=== PATIENT | male | born 1960 | race Two or more races ===

== ENCOUNTER 2024-11-06 05:53 | Inpatient (IN) | payer MEDICAID, SELFPAY ==
[2024-11-06] VITALS (13 sets, daily range): BP systolic 129–172; BP diastolic 77–101; PULSE 66–93; RESP 13–20; TEMP 36.4–36.8; O2SAT 94–100; BMI 38.0
--- NOTE | 2024-11-06 05:59 | EDNOTE_ITS ---
ED SOB =RME/HPI General Chief Complaint: Shortness of Breath/Dyspnea Stated Complaint: SOB Time Seen by Provider: 11/06/24 05:59 Arrival date/time: 11/06/24 05:53 RME / HPI RME / HPI Narrative: This section includes all my notes and documentations, including HPI, PE, and ED course.? Frank Smith MD HPI: 64-year-old male here with a couple day history of shortness of breath. No fever or chills or body aches or malaise. No chest pain. No known history of asthma or COPD. No cough or congestion. Equivocal about orthopnea. No leg pain or swelling. PMH remarkable for DM and HTN. When he had COVID about 4 years ago, his kidneys failed and needed dialysis temporarily. His kidneys have been fine since. No other complaints. ROS: All negative except as documented in HPI. Physical Exam: General:? Alert and oriented.? No acute distress when remaining still.?? Eyes:? Conjunctivae and lids clear.? ENT:? No nasal congestion.? Neck:? Supple.? Heart:? RRR.? Lungs:? No respiratory distress.? Moderately decreased air movement.? No rhonchi, wheezing, rales.?? Abdomen:? Soft and nontender.?? Legs:? No clubbing, cyanosis, edema.? Skin:? Warm and dry.?? Neuro:? Alert and oriented X 3.?? I reviewed all diagnostic test results. My interpretation of the EKG is?sinus rhythm with no acute ST?T changes. My interpretation of the chest x-ray is increased vascular congestion. Blood tests remarkable for pH 7.25, Cr 3.8, BNP 464, negative troponin, and negative D-dimer. At this point, diagnoses include?acute respiratory failure with hypoxia and acute renal failure. Treatment here included?oxygen and Solu-Medrol 125 mg IV and DuoNeb as a trial. No significant improvement noted. I discussed the case with our divorce attorney and our hospitalist.? About the presentation and exam and diagnostics and treatments here.? And need of further care in the hospital.? Will accept the patient. Lasix 40 mg IV ordered recommended by our divorce attorney. Frank Smith MD Related Data Allergies Allergy/AdvReac Type Severity Reaction Status Date / Time No Known Allergies Allergy Verified 11/06/24 05:59 Past Medical History Past Medical History CARDIAC: Negative Congestive Heart Failure RESPIRATORY: Negative Chronic Obstructive Pulmonary Disease (COPD) GENITOURINARY: Negative Renal Disease ENDOCRINE: Negative Diabetes Mellitus Type 1 or Diabetes Mellitus Type 2 Social History SMOKING STATUS: Never smoker Course Quality Measures none Orders Category Date Time Status Bedside COVID-19 Antigen Test NOW Care 11/06/24 06:02 Active Bedside Influenza A&B Antigen Test NOW Care 11/06/24 06:02 Completed COVID-19 Screening Questionnaire NOW Care 11/06/24 08:15 Active Decision to Admit X1 Care 11/06/24 08:15 Active EKG (ED ONLY) *Do not use* NOW Care 11/06/24 06:02 Completed Saline [Insert IV] NOW Care 11/06/24 06:02 Active Consult to Nephrology Stat Cons 11/06/24 07:55 Ordered EKG (ED Only) Stat Exams 11/06/24 06:02 Draft US renal BI Stat Exams 11/06/24 07:56 Ordered XR chest 1V portable Stat Exams 11/06/24 06:02 Completed ABG [Arterial Blood Gas] Stat Lab 11/06/24 06:37 Completed BNP [B-Type Natriuretic Peptide] Stat Lab 11/06/24 06:33 Completed CBC Stat Lab 11/06/24 06:33 Completed CMP [Comprehensive Metabolic Panel] Stat Lab 11/06/24 06:33 Completed D-Dimer Stat Lab 11/06/24 06:33 Completed Magnesium Stat Lab 11/06/24 06:33 Completed RSV [Respiratory Syncytial Virus Ag] Stat Lab 11/06/24 06:17 Completed Troponin I Stat Lab 11/06/24 06:33 Completed Albuterol/Ipratr Rt Kaelyn [Duoneb Rt Kaelyn] Med 11/06/24 06:01 Discontinued 3 ml INH X1 ONE Furosemide Inj [Lasix Inj] Med 11/06/24 07:56 Discontinued 40 mg IVP X1 ONE MethylPREDNISolone.* [SoluMEDROL Inj] Med 11/06/24 06:01 Discontinued 125 mg IVP X1 ONE Vital Signs Vital signs: Vital Signs Pulse Rate 75 11/06/24 06:00 Respiratory Rate 15 11/06/24 06:00 Blood Pressure 168/92 H 11/06/24 06:00 Pulse Oximetry (%) 98 11/06/24 06:00 Shortness of Breath / Dyspnea Patient data External records reviewed:: None (No previous records for review) Clinical information provided by:: patient and EMS Social determinants that could affect healthcare access:: none Patient has the following chronic illnesses:: DM and HTN How is presenting disease/condition affected by chronic disease/condition?: exacerbated by Evaluation data The following diagnostics were reviewed and interpreted by me:: lab results, radiology exam(s) and EKG tracing(s) (My interpretation of the EKG: NSR (71 bpm) with no ST-T changes. Frank Smith MD) Lab and/or radiology exams considered but not ordered:: None Interpretation Summary: Acute respiratory failure with hypoxia and acute renal failure Medications / Prescriptions Medications or Prescriptions considered but not ordered:: None Medication administrations:: Medication Administration History Discontinued Medications Albuterol/Ipratropium (Albuterol/Ipratropium (Duoneb) Rt Kaelyn 3 Ml Nebu) 3 ml INH X1 ONE Stop: 11/06/24 06:02 Last Admin: 11/06/24 06:21 Dose: 3 ml Documented By: FRANK Furosemide (Furosemide Inj 10 Mg/Ml 4ml Vial) 40 mg IVP X1 ONE Stop: 11/06/24 07:57 Methylprednisolone Sodium Succinate (Methylprednisolone Sod Succ 62.5 Mg/Ml 2ml Vial) 125 mg IVP X1 ONE Stop: 11/06/24 06:02 Last Admin: 11/06/24 06:41 Dose: 125 mg Documented By: KD Oxygen and Solu-Medrol and DuoNeb and Lasix Consultations Consultation(s) initiated? (list below): Yes Consultation #1 (Physician, Specialty, Details): Dr. Hutchinson (Nephrology) Diagnosis Shortness of Breath Differential Diagnosis: acute exacerbation of chronic obstructive airways disease, congestive heart failure, community acquired pneumonia, asthma with exacerbation, pulmonary embolism and other (Acute renal failure) Most likely diagnosis given after review of the tests above:: Acute renal failure Admission Indicated Admission indicated?: indicated Explain why admission is indicated or not indicated:: Acute respiratory failure with hypoxia and acute renal failure Admission Request Was there a request for admission?: Yes Admission Attestation Admission request attestation: Discussed case with Hospitalist service regarding admission. Discussed patients ED course, exam findings, labs, and radiology results. The Hospitalist [agrees,declines] to accept the patient for admission. Disposition Plan Disposition Plan: Admit Discharge Plan Plan Patient Disposition: Admit Acute Care w/in Hospital Prescriptions/Referrals Referrals: No Primary/Family,Physician [Primary Care Provider] - In 1 week Problem List Clinical Impression: Acute respiratory failure with hypoxia, Acute renal failure Patient/Caregiver Discharge Instructions Print Language: Pashto Stand Alone Forms: Lois Award Info., Patient Portal Info Letter
--- NOTE | 2024-11-06 06:02 | EKG_ITS ---
[facility] Test Date: 2024-11-06 Pat Name: SANAM HARPER Department: Room: - Gender: Male Telephone Directory Deliverer: : 1960 Requested By: Frank Hung Order Number: [id number] Reading MD: Frank Hung Measurements Intervals Pelzer Rate: 71 P: 99 UT: 205 QRS: 29 QRSD: 101 T: 43 QT: 427 QTc: 466 Interpretive Statements SINUS RHYTHM No previous ECG available for comparison /store/S0/[id number]/[id number].pdf
--- NOTE | 2024-11-06 06:02 | XR_ITS ---
Examination: AP chest single view Technique one AP portable semiupright chest single view Exam date and time: November 06, 2024 at 0617 hrs. Indications: SOB today. Findings: Mild prominence cardiac contour Mild vascular congestion Interstitial disease at the lung bases Intact osseous structures Impression: Interstitial disease at the lung bases, consider bronchitis versus early bronchopneumonia, clinical correlation advised
[2024-11-06] MEDS: ALBUTEROL/IPRATROPIUM (Duoneb) RT SOL 3 ML NEBU INH (06:21)
[2024-11-06 06:41] LABS: Base Excess -7 (-3-3); HCO3 20 mEq/L (20-26); O2 Saturation 96 % (91-98); PCO2 47 mmHg (32.0-48.0); PO2 89 mmHg (83-108); pH, Arterial 7.25 (7.35-7.45)
[2024-11-06] MEDS: MethylPREDNISolone SOD SUCC 62.5 MG/ML 2ML VIAL 125 MG IVP (06:41)
[2024-11-06 06:54] LABS: Allen Test Performed/OK; Inspired O2, VO2 Liters 4 L/min; Puncture Site Right Radial
[2024-11-06 07:09] LABS: Basophils # (Auto) 0.1 Thou/mm3 (0.0-0.2); Basophils % (Auto) 1 % (0-2.5); Eosinophils # (Auto) 0.1 Thou/mm3 (0.0-0.5); Eosinophils % (Auto) 1 % (0-10); Hematocrit 30.2 % (41.0-53.0); Hemoglobin 9.6 g/dL (13.5-16.0); Immature Granulocytes % (Auto) 1 % (0-0); Immature Granulocytes Auto 0.08 Thou/mm3 (0.00-0.00); Lymphocytes # (Auto) 1.8 Thou/mm3 (1.0-4.8); Lymphocytes % (Auto) 18 % (10-50); Mean Corpuscular HGB Conc 31.8 g/dl (31.0-37.0); Mean Corpuscular Hemoglobin 29.1 pg (25.0-35.0); Mean Corpuscular Volume 92 fL (80-100); Monocytes # (Auto) 0.6 Thou/mm3 (0.0-0.8); Monocytes % (Auto) 6 % (0-12); Neutrophils # (Auto) 7.4 Thou/mm3 (1.8-7.7); Neutrophils % (Auto) 74 % (37-80); Nucleated Red Blood Cell % 0 /100 WBC (0); Platelet Count 174 Thou/mm3 (140-440); RDW Standard Deviation 53.8 fL (35.1-43.9)
--- NOTE | 2024-11-06 07:15 | PC.NURSE ---
Received report from Elva WEBER and assumed care of patient. Patient sleeping in bed with no signs of distress at this time.
[2024-11-06 07:38] LABS: Alanine Aminotransferase 17 U/L (10-49); Albumin, Serum 4.3 gm/dL (3.4-4.8); Albumin/Globulin Ratio 1.2 (1.2-2.2); Alkaline Phosphatase 77 U/L (46-116); Anion Gap 9 (7-16); Aspartate Amino Transferase 25 U/L (0-34); B-Type Natriuretic Peptide 464 pg/mL (0-100); BUN/Creatinine Ratio 20 Ratio (12-20); Bilirubin,Total 0.3 mg/dL (0.3-1.2); Blood Urea Nitrogen 76 mg/dL (9-23); Calcium 8.5 mg/dL (8.3-10.6); Calcium (Corrected) 8.5 mg/dL (8.5-10.1); Chloride 107 mMol/L (98-107); Creatinine (Component) 3.8 mg/dL (0.6-1.3); Estimated Creatinine Clearance 27.4 mL/min (>60); Globulin 3.6 gm/dL (2.3-3.5); Glucose 98 mg/dL (74-106); Magnesium 2.4 mg/dL (1.6-2.6); Osmolality,Calculated 296 (275-295); Potassium 4.8 mMol/L (3.4-5.1); Sodium 137 mMol/L (136-145); Total Protein 7.9 gm/dL (5.7-8.2); Troponin I 0.036 ng/mL (0.0-0.045); eGFR 17 See Note
[2024-11-06 07:38] LABS: Respiratory Syncytial Virus Ag Negative (Negative)
[2024-11-06 07:42] LABS: D-Dimer 379 ng/mL (<600)
--- NOTE | 2024-11-06 07:56 | XR_ITS ---
Examination: Retroperitoneal ultrasound, complete Technique: Multiple high resolution grayscale images of the retroperitoneum obtained, including kidneys and bladder. Exam date and time:November 06, 2024 0839 hours INDICATIONS: Acute renal insufficiency on laboratory examination today, creatinine 3.8 FINDINGS: Right kidney 9.1 x 5.4 x 5.5 cm cortex 1.4 cm Left kidney 10.1 x 4.9 x 5.5 cm cortex 2.1 cm Mild bilateral renal parenchymal scar formation No hydronephrosis No bladder mass or bladder calculi Bladder prevoid volume 357 cc unable to void IMPRESSION: Mild bilateral renal parenchymal scar formation No hydronephrosis
[2024-11-06] MEDS: FUROSEMIDE INJ 10 MG/ML 4ML VIAL 40 MG IVP (08:27)
--- NOTE | 2024-11-06 09:03 | PC.CC ---
Patient is a 64 year-old male BIBA for SOB. MARIANAWMarilu made [id number] contact with patient. ASW introduced self, role, and reason for visit. Patient appeared alert and oriented to self, location, and situation. Patient was pleasant and engaged in initial assessment. Patient confirmed information on demographics and reports to living with his significant other, Mimi Baldwinlayjoslyn . Per patient, prior to him being admitted he uses a wheelchair to ambulate and is complete assist. Patient's caregiver is his significant other who helps him complete all his ADLs. Patient has been using oxygen since presenting to the hospital; however, stated that at home he does not use any oxygen. Patient receives primary care with [facility] in [place]. Patient's next of kin is Mimi Baldwinjosie his significant other. Upon discharge patient plans to return home. multicultural services librarian to follow-up with any discharge needs.
--- NOTE | 2024-11-06 09:29 | ECHO_ITS ---
Transthoracic Echo Report Ht (in): 72 Wt (lb): 280 Exam Location: ER Status: Emergency Sample Grader: Josefina Gamez Indications: Procedure Performed: BP: 172 / 101 HR: 80 Rhythm: Sinus Technical Quality: Technically difficult study MEASUREMENTS (Male / Female) Normal Values 2D ECHO LV Diastolic Diameter PLAX 5.8 cm 4.2 - 5.9 / 3.9 - 5.3 cm LV Systolic Diameter PLAX 4.0 cm IVS Diastolic Thickness 1.1 cm 0.6 - 1.0 / 0.6 - 0.9 cm LVPW Diastolic Thickness 1.1 cm 0.6 - 1.0 / 0.6 - 0.9 cm LV Relative Wall Thickness 0.4 LVOT Diameter 2.2 cm LA Volume Index 35.0 cm?/m? 16 - 28 cm?/m? Ascending Aorta Diameter 3.4 cm M-MODE Aortic Root Diameter MM 2.8 cm LA Systolic Diameter MM 4.4 cm LA Ao Ratio MM 1.6 AV Cusp Separation MM 2.0 cm DOPPLER AV Peak Velocity 146.0 cm/s AV Peak Gradient 8.5 mmHg AV Mean Gradient 5.0 mmHg AV Velocity Time Integral 30.1 cm LVOT Peak Velocity 115.0 cm/s LVOT Peak Gradient 5.3 mmHg LVOT Velocity Time Integral 28.9 cm LVOT Cardiac Index 3394.6 cm?/min?m? AV Area Cont Eq vti 3.6 cm? AV Area Cont Eq pk 3.0 cm? MV Peak Velocity 122.0 cm/s MV Peak Gradient 6.0 mmHg MV Mean Velocity 87.9 cm/s MV Mean Gradient 4.0 mmHg MV Area PHT 4.1 cm? Mitral E Point Velocity 104.0 cm/s Mitral A Point Velocity 115.0 cm/s Mitral E to A Ratio 0.9 LV E' Lateral Velocity 14.5 cm/s Mitral E to LV E' Lateral Ratio 7.2 LV E' Septal Velocity 8.2 cm/s Mitral E to LV E' Septal Ratio 12.7 FINDINGS Left Ventricle Normal left ventricular size,systolic function with no obvious regional wall motion abnormalities. M ild LVH. The ejection fraction is visually estimated at 55-60%. Right Ventricle The right ventricle is mildly dilated. Normal systolic function. Left Atrium The left atrium is normal by two-dimensional, color flow and Doppler imaging with no structural abnormalities, no thrombus formation present. Right Atrium The right atrium is normal by two-dimensional imaging, color flow and Doppler imaging with no struct ural abnormalities, no thrombus formation present. Atrial Septum The interatrial septum appears normal with no evidence of a shunt. Aorta The aorta is normal by two-dimensional, color flow and Doppler interrogation. Mitral Valve The mitral valve is normal by two-dimensional, color flow and Doppler interrogation. There is trace mitral valve regurgitation. Aortic Valve The aortic valve is trileaflet. Mild sclerosis without stenosis. There is no significant aortic valv e regurgitation. Tricuspid Valve The tricuspid valve is normal by two-dimensional, color flow and Doppler interrogation. There is tra ce tricuspid valve regurgitation. Pulmonic Valve The pulmonic valve is normal by two-dimensional, color flow and Doppler interrogation. There is no significant pulmonic valve regurgitation. Vessels The pulmonary artery appears normal. The inferior vena cava pulmonary and hepatic veins appear osman l. Pericardium The pericardium is normal by two-dimensional imaging. Possible epicardial fat pad near the RA or sm all pericardial effusion. CONCLUSIONS Indication: CHF Normal LV size and function. Mild LVH. Stage I diastolic dysfunction. Estimated EF 55-60% Mild RV dilatation. Normal RV function. Trace MR, TR. Mild AV sclerosis without stenosis. Possible epicardial fat pad near the RA or trace pericardial effusion. Rafa Hemphill (Electronically Signed) Final Date: 07 November 2024 08:24
[2024-11-06] MEDS: AZITHROMYCIN 250 MG TABLET 500 MG PO (10:49)
[2024-11-06] MEDS: cefTRIAXone/D5w 1gm IV premix 50 ML IV (10:50)
[2024-11-06] MEDS: HEPARIN SOD INJ 5000 UNIT/ML VIAL SC ×2 (15:52→21:03)
--- NOTE | 2024-11-06 16:35 | ESHP_ITS ---
Documentation for date of: 11/06/24 HPI - Hospitalist History of Present Illness History of present illness: Patient is a 64-year-old male with history of hypertension, on methadone following at the [facility] (formerly [facility]3] in [place], hyperlipidemia, insulin-dependent diabetes mellitus, and dyspepsia, who presented with a chief complaint of shortness of breath. Patient was at his usual state of health until the night prior to admission. He had some difficulty going to sleep because of his difficulty breathing. He reported dry cough. He reported feeling short of breath when he lies flat. No chest pain. No nausea or vomiting. As his symptoms got worse, he presented to the ED. In the ED, he was hypoxic requiring oxygen via nasal cannula. His BP was 161/96. His labs showed elevated creatinine at 3.8. Baseline is unclear. BNP was elevated. He mentioned that he had acute kidney injury in the past and he was temporarily on hemodialysis. His pH was 7.25 but the bicarb was WNL. Chest x-ray showed bronchitis versus bronchopneumonia. Nephrology was consulted in the ED and recommended IV Lasix. He was admitted for further evaluation and management. Past medical history: As above Medications were reviewed at the bedside No known drug allergies Family history: Positive for hypertension and diabetes. Reported no kidney disease in his family. Social history: He is currently not smoking cigarettes or drinking alcohol. Denied any recent illicit drug use. 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 Review of Systems Review of Systems Narrative Review of Systems: 12 point of system reviewed. All negative except as mentioned in the HPI. Meds Home Medications and Allergies Allergies Allergy/AdvReac Type Severity Reaction Status Date / Time No Known Allergies Allergy Verified 11/06/24 05:59 Exam Vital Signs Temp Pulse Resp BP Pulse Ox O2 Del Method O2 Flow Rate 98.1 F 79 15 129/84 98 Nasal Cannula 3.5 11/06/24 16:18 11/06/24 16:18 11/06/24 16:18 11/06/24 16:18 11/06/24 16:18 11/06/24 16:18 11/06/24 16:18 Narrative General: Alert and oriented x3. In no acute distress. Eyes: Pupils are equal and reactive to light bilaterally. HEENT: Atraumatic, normocephalic. No JVD noted. Cardiovascular: Normal S1 and S2. Normal rate and regular rhythm. No murmurs appreciated. +1 peripheral pitting edema noted. No JVD noted. Respiratory: No respiratory distress. Crackles heard on lung examination. No wheezing. Abdomen: Soft, nontender, nondistended. Skin: No rash. Warm to touch. Musculoskeletal: Toe amputation noted. Able to move all 4 extremities. Neuro: Alert and oriented x3. Sensation is intact throughout. Strength is 5/5 and symmetric. No focal neuro deficits. Psych: Normal affect and mood. Results - Hospitalist Labs Diagrams: 11/06/24 06:33 11/06/24 06:33 Labs: Short CBC 11/06/24 Range/Units 06:33 WBC 10.0 (3.8-10.6) Thou/mm3 Hgb 9.6 L (13.5-16.0) g/dL Hct 30.2 L (41.0-53.0) % Plt Count 174 (140-440) Thou/mm3 BMP 11/06/24 06:33 Sodium 137 Potassium 4.8 Chloride 107 Carbon Dioxide 21.0 BUN 76 H Creatinine 3.8 H Glucose 98 Calcium 8.5 Cardiac Enzymes 11/06/24 Range/Units 06:33 Troponin I 0.036 (0.0-0.045) ng/mL Liver Function 11/06/24 Range/Units 06:33 Total Bilirubin 0.3 (0.3-1.2) mg/dL AST 25 (0-34) U/L ALT 17 (10-49) U/L Alkaline Phosphatase 77 (46-116) U/L Albumin 4.3 (3.4-4.8) gm/dL ABG Interpretation ABG results: 11/06/24 06:37 ABG pH 7.25 L ABG pCO2 47 ABG pO2 89 ABG HCO3 20 ABG O2 Saturation 96 ABG Base Excess -7 L Assessment & Plan -Hospitalist Patient Synopsis 64-year-old male with hypertension, IDDM, hyperlipidemia, who presented with shortness of breath, orthopnea, and PND. He was found to have acute hypoxic respiratory failure in the setting of possible CHF versus bronchopneumonia and MIAN. Acute hypoxic respiratory failure In the setting of volume overload from new onset CHF versus bronchopneumonia. Requiring oxygen via nasal cannula. Management of the underlying conditions as below. Wean off oxygen as tolerated. Possible new onset CHF He has elevated BNP, vascular congestion, and +1 pitting edema on physical exam. He received IV Lasix in the ED per nephrology recommendations. Plan: Continue IV Lasix Monitor kidney function Ordered echocardiogram Monitor I's and O's Cardiac diet with fluid restriction of 1500 cc/day Possible associated pneumonia, bilateral Started the patient on IV ceftriaxone/azithromycin. Avoiding IV fluids in the setting of possible CHF. MIAN No baseline creatinine to compare however patient likely has baseline CKD. Possibly cardiorenal in the setting of volume overload. Plan: Continue IV diuresis with Lasix 40 mg IV daily Monitor I's and O's Avoid nephrotoxins Renally dosed medications Monitor [facility] Nephrology Dr. Valdez consulted. Appreciate recommendations Insulin-dependent diabetes mellitus He reported using long-acting insulin Basaglar 20 units every 12 hours. Plan: Will start long-acting insulin 20 units twice daily plus sliding scale insulin. Monitor fingersticks Opiate dependence on chronic methadone He reported being on 90 mg of methadone. He goes to [facility] in [place]. Verify dose prior to resuming. Hypertension He is currently normotensive. Resume home medications once reconciled. CODE STATUS is full code DVT prophylaxis with subcutaneous heparin Admitting to telemetry for IV diuresis Diet is cardiac with fluid restriction of 1500 cc/day Quality Measures Quality Measures none
--- NOTE | 2024-11-06 18:55 | PC.NURSE ---
Report called and given to Shira WEBER at [facility] to RM [id number].
[2024-11-06] MEDS: INSULIN LISPRO (AdmeLOG) 1 UNIT/0.01 ML UNIT SC (19:00)
[2024-11-06] MEDS: INSULIN GLARGINE (Lantus) 5 UNIT/0.05 ML (PER 5 UNITS) 20 UNIT SC (20:52)
[2024-11-07] VITALS (10 sets, daily range): BP systolic 123–169; BP diastolic 74–93; PULSE 68–93; RESP 16–19; TEMP 36.4–37; O2SAT 95–99; BMI 37.0
[2024-11-07] MEDS: HEPARIN SOD INJ 5000 UNIT/ML VIAL SC ×3 (05:35→21:47)
[2024-11-07 06:44] LABS: Basophils % (Auto) 0 % (0-2.5); Eosinophils % (Auto) 0 % (0-10); Hematocrit 29.3 % (41.0-53.0); Hemoglobin 9.2 g/dL (13.5-16.0); Immature Granulocytes % (Auto) 1 % (0-0); Immature Granulocytes Auto 0.06 Thou/mm3 (0.00-0.00); Lymphocytes # (Auto) 2.4 Thou/mm3 (1.0-4.8); Lymphocytes % (Auto) 28 % (10-50); Mean Corpuscular HGB Conc 31.4 g/dl (31.0-37.0); Mean Corpuscular Hemoglobin 29.1 pg (25.0-35.0); Mean Corpuscular Volume 93 fL (80-100); Monocytes # (Auto) 0.5 Thou/mm3 (0.0-0.8); Monocytes % (Auto) 6 % (0-12); Neutrophils # (Auto) 5.7 Thou/mm3 (1.8-7.7); Neutrophils % (Auto) 65 % (37-80); Nucleated Red Blood Cell % 0 /100 WBC (0); Platelet Count 172 Thou/mm3 (140-440); RDW Standard Deviation 53.1 fL (35.1-43.9); Red Blood Count 3.16 Miln/mm3 (4.50-5.90); White Blood Count 8.8 Thou/mm3 (3.8-10.6)
[2024-11-07 07:06] LABS: Anion Gap 12 (7-16); BUN/Creatinine Ratio 22 Ratio (12-20); Blood Urea Nitrogen 82 mg/dL (9-23); Calcium 8.9 mg/dL (8.3-10.6); Carbon Dioxide 20.5 mMol/L (20.0-31.0); Chloride 106 mMol/L (98-107); Creatinine (Component) 3.7 mg/dL (0.6-1.3); Estimated Creatinine Clearance 27.8 mL/min (>60); Glucose 67 mg/dL (74-106); Magnesium 2.5 mg/dL (1.6-2.6); Osmolality,Calculated 298 (275-295); Potassium 4.6 mMol/L (3.4-5.1); Sodium 138 mMol/L (136-145); eGFR 18 See Note
[2024-11-07] MEDS: INSULIN GLARGINE (Lantus) 5 UNIT/0.05 ML (PER 5 UNITS) 20 UNIT SC (08:22)
[2024-11-07] MEDS: FUROSEMIDE INJ 10 MG/ML 4ML VIAL 40 MG IVP (08:23)
[2024-11-07] MEDS: cefTRIAXone/D5w 1gm IV premix 50 ML IV (08:24)
[2024-11-07] MEDS: AZITHROMYCIN 250 MG TABLET PO (08:24)
[2024-11-07] MEDS: METHADONE HYDROCHLORIDE PO (10:14)
[2024-11-07] MEDS: amLODIPine BESYLATE 5 MG TABLET 10 MG PO (10:21)
--- NOTE | 2024-11-07 11:30 | PD.ADDPROG ---
Addendum Progress Note Addendum Date of report being addended: 11/07/24 Narrative: Attending's attestation: I reviewed labs, imaging, EKG, home medications and prior available records. Face to face evaluation was performed by me. I have personally examined the patient and discussed assessment and plan with the IM team. I reviewed the resident note and agree with the plan with exceptions as below. Acute hypoxic respiratory failure New onset CHF CHF exacerbation Heart failure with preserved EF MIAN Uncontrolled hypertension He is on room air Continue IV diuresis Echocardiogram showed EF of 55 to 60% with mild valvular disease. Cardiology was consulted for new onset CHF. Monitor kidney function and avoid nephrotoxins. Renally dosed medications. Consulted nephrology. Started hydralazine and amlodipine. Monitor BP.
--- NOTE | 2024-11-07 12:26 | PD.RESCONSUL ---
HPI Data of Consult Requesting Physician: Brandon Arredondo MD Admitting Provider: Brandon Arredondo MD Attending Provider: Brandon Arredondo MD Primary Care Provider: Physician No Primary/Family Consult Narrative Reason for consult: New onset HF History of present illness: 64-year-old wheelchair bound male with past medical history of essential hypertension, active heroin use and on methadone, hyperlipidemia, IDDM, COVID-pneumonia in 2019 with residual lower body weakness and dyspepsia was admitted to the hospital on 11/06/2024 due to new onset heart failure. In the ED patient came in with complaints of shortness of breath. Initially patient was hypotensive and afebrile. Initial labs showed WBC 10, Hgb 9.6, ABG (pH 7.25, pCO2 47, PaO2 89), sodium 137, potassium 4.8, BUN 76, creatinine 3.8, magnesium 2.4, and BNP 464. Initial imaging included chest x-ray which shows some interstitial disease at the lung bases, EKG showed sinus rhythm. Echo on 11/06/2024 had the following findings: Normal LV size and function. Mild LVH. Stage I diastolic dysfunction. Estimated EF 55-60% Mild RV dilatation. Normal RV function. Trace MR, TR. Mild AV sclerosis without stenosis. Possible epicardial fat pad near the RA or trace pericardial effusion. During my assessment patient stated that on the night of he got up to go to the restroom, but he got very short of breath when standing up from his wheelchair to use the restroom. He stated that he could not catch his breath and then he he decided to come into the hospital. He states that he does not have any chest pain, palpitations, lower extremity swelling, syncopal episodes, or previous episodes of shortness of breath. Patient states that he has not had these symptoms in the past and that he has never been told that he has any type of heart issues. Patient is a past smoker of 1 pack/day for around 20 years and quit 10 years ago, he also admits to actively using heroin on and off as well as methadone, he also stated that he drinks alcohol socially. He denies any history of cardiac events in his family other than high blood pressure on his father. Concerning his kidney function patient states that he has some kidney disease, but follows up with his primary care physician. PMH:essential hypertension, active heroin use and on methadone, hyperlipidemia, IDDM, COVID-pneumonia in 2020 with residual lower body weakness and dyspepsia Surgical Hx: Left toe amputation Social Hx: Admits to heroin use and currently on methadone as well, admits alcohol socially, past smoker pack per day for 20+ years and quit 10 years ago FMH: Father has hypertension and half sibling had a heart attack cc:: cc: Brandon Arredondo MD Review of Systems Review of Systems Narrative Review of Systems: Constitutional: Denies sweats, Denies weight loss/gain, Denies fever, Denies chills. HEENT: Denies hearing loss, Denies ear pain, Denies postnasal drip, Denies double vision, Denies blurry vision. Respiratory: Admits shortness of breath, Denies cough, Denies wheezing. Cardiovascular: denies chest pain, denies shortness of breath, denies palpitations, Denies sudden loss of consciousness. GI: Denies blood in stool, Denies constipation, Denies abdominal pain, Denies difficulty swallowing, Denies nausea or vomit. : Denies urinary incontinence, Denies pain while urinating, Denies increased urinary frequency. MSK: Denies joint pain, Denies joint swelling, denies numbness. Skin: Denies rash, Denies itching, Denies easy bruising. Neuro: Denies headaches, Denies dizziness, Denies seizures. Past Medical History Past Medical History Comments PMH COMMENT: PMH:essential hypertension, active heroin use and on methadone, hyperlipidemia, IDDM, COVID-pneumonia in 2020 with residual lower body weakness and dyspepsia Surgical Hx: Left toe amputation Social Hx: Admits to heroin use and currently on methadone as well, admits alcohol socially, past smoker pack per day for 20+ years and quit 10 years ago FMH: Father has hypertension and half sibling had a heart attack Exam Vital Signs Temp Pulse Resp BP Pulse Ox O2 Del Method O2 Flow Rate 97.7 F 93 18 169/93 H 99 Room Air 3 11/07/24 08:00 11/07/24 10:21 11/07/24 08:00 11/07/24 10:21 11/07/24 08:00 11/07/24 08:00 11/07/24 04:00 Narrative Exam General: A/O x3, no acute distress, obese Eyes: PERRL, EOMI. Anicteric, vision grossly intact. Ears: No ear pain, no ear discharge, Hearing grossly intact. Nose: No nasal discharge. Mouth/Throat: Moist mucous membranes, no redness, no lesions. Neck: Neck supple, non-tender, no cervical lymphadenopathy. Lungs: Clear LINO to auscultation and percussion, No accessory muscle use. Cardio: Normal S1/S2, regular rhythm, no murmurs, no JVD Abdomen: Soft, but distended non-tender, no palpable masses, peristalsis present, no guarding or rebound. Extremities: Symmetrical, no significant deformities, no peripheral edema , non-tender, peripheral pulses presents. amputation left great toe Skin: No rashes, no lesions, warm to touch. Neuro: No focal neurological deficits. LE strength 3/5 Psych: Cooperative, appropriate mood and effect. Results Labs 11/07/24 05:00 11/07/24 05:00 Labs: Short CBC 11/07/24 Range/Units 05:00 WBC 8.8 (3.8-10.6) Thou/mm3 Hgb 9.2 L (13.5-16.0) g/dL Hct 29.3 L (41.0-53.0) % Plt Count 172 (140-440) Thou/mm3 BMP 11/07/24 05:00 Sodium 138 Potassium 4.6 Chloride 106 Carbon Dioxide 20.5 BUN 82 H Creatinine 3.7 H Glucose 67 L Calcium 8.9 ABG Interpretation ABG results: 11/06/24 06:37 ABG pH 7.25 L ABG pCO2 47 ABG pO2 89 ABG HCO3 20 ABG O2 Saturation 96 ABG Base Excess -7 L Quality Measures Quality Measures none Medications Home Medications and Allergies Home Medications ?Medication ?Instructions ?Recorded ?Confirmed ?Type amlodipine 10 mg tablet 10 mg QDAY 11/06/24 11/06/24 History atorvastatin 80 mg tablet 80 mg QDAY 11/06/24 11/06/24 History esomeprazole magnesium 40 mg 40 mg QDAY 11/06/24 11/06/24 History capsule,delayed release gemfibrozil 600 mg tablet 600 mg BID 11/06/24 11/06/24 History hydralazine 100 mg tablet 100 mg PO TID 11/06/24 11/06/24 History hydrochlorothiazide 25 mg tablet 25 mg QDAY 11/06/24 11/06/24 History insulin glargine 100 unit/mL (3 20 unit subcut BID 11/06/24 11/06/24 History mL) subcutaneous pen (Basaglar KwikPen U-100 Insulin) lisinopril 40 mg tablet 40 mg QDAY 11/06/24 11/06/24 History Allergies Allergy/AdvReac Type Severity Reaction Status Date / Time No Known Allergies Allergy Verified 11/06/24 05:59 Visit Medications Amlodipine Besylate (Amlodipine Besylate 5 Mg Tablet) 10 mg PO QDAY [facility] Stop: 12/07/24 08:59 Last Admin: 11/07/24 10:21 Dose: 10 mg Azithromycin (Azithromycin 250 Mg Tablet) 250 mg PO QDAY [facility] Stop: 11/11/24 08:59 Last Admin: 11/07/24 08:24 Dose: 250 mg Methadone Hydrochloride Oral Concentrate 10 Mg/Ml 0 ea PO QDAY [facility]; Protocol Stop: 12/07/24 10:59 Last Admin: 11/07/24 10:14 Dose: 90 bottle Dextrose (Dextrose 50%-Water Inj 50 Ml Syringe) 25 ml IV Q15MIN PRN PRN Reason: BG 50-70 responsive npo pt Stop: 12/06/24 16:37 Dextrose (Dextrose 50%-Water Inj 50 Ml Syringe) 50 ml IV Q15MIN PRN PRN Reason: BG <50 OR BG <70 & pt unresponsive Stop: 12/06/24 16:37 Furosemide (Furosemide Inj 10 Mg/Ml 4ml Vial) 40 mg IVP QDAY [facility] Stop: 12/07/24 08:59 Last Admin: 11/07/24 08:23 Dose: 40 mg Glucagon (Glucagon Inj 1 Mg Vial) 1 mg IM Q15MIN PRN PRN Reason: BG <70, and no IV access Heparin Sodium (Porcine) (Heparin Sod Inj 5000 Unit/Ml Vial) 5,000 unit SC Q8HR [facility] Stop: 11/20/24 13:59 Last Admin: 11/07/24 05:35 Dose: 5,000 unit Hydralazine HCl (Hydralazine Hcl 25 Mg Tablet) 100 mg PO TID [facility] Stop: 12/07/24 13:59 Ceftriaxone Sodium/Dextrose (Rocephin/D5w 1gm Iv Premix) 50 mls @ 100 mls/hr IV QDAY [facility] Stop: 11/13/24 09:29 Last Admin: 11/07/24 08:24 Dose: 100 mls/hr Insulin Glargine (Insulin Glargine (Lantus) 5 Unit/0.05 Ml (Per 5 Units)) 20 unit SC BID [facility] Stop: 12/06/24 20:59 Last Admin: 11/07/24 08:22 Dose: 20 unit Insulin Human Lispro (Insulin Lispro (Admelog) 1 Unit/0.01 Ml Unit) 0 unit SC ACHS [facility]; Protocol Stop: 12/06/24 16:59 Last Admin: 11/07/24 08:07 Dose: Not Given Ondansetron HCl (Ondansetron Inj 2 Mg/Ml Inj 2 Ml) 4 mg IV Q6H PRN; Protocol PRN Reason: NAUSEA OR VOMITING Stop: 12/06/24 09:27 Discontinued Medications Albuterol/Ipratropium (Albuterol/Ipratropium (Duoneb) Rt Kaelyn 3 Ml Nebu) 3 ml INH X1 ONE Stop: 11/06/24 06:02 Last Admin: 11/06/24 06:21 Dose: 3 ml Azithromycin (Azithromycin 250 Mg Tablet) 500 mg PO X1 ONE Stop: 11/06/24 09:29 Last Admin: 11/06/24 10:49 Dose: 500 mg Furosemide (Furosemide Inj 10 Mg/Ml 4ml Vial) 40 mg IVP X1 ONE Stop: 11/06/24 07:57 Last Admin: 11/06/24 08:27 Dose: 40 mg Methadone HCl (Methadone Hcl 10 Mg Tablet) 90 mg PO QDAY [facility] Stop: 11/12/24 08:59 Methylprednisolone Sodium Succinate (Methylprednisolone Sod Succ 62.5 Mg/Ml 2ml Vial) 125 mg IVP X1 ONE Stop: 11/06/24 06:02 Last Admin: 11/06/24 06:41 Dose: 125 mg Assessment & Plan Plan 64-year-old wheelchair bound male with past medical history of essential hypertension, active heroin use and on methadone, hyperlipidemia, IDDM, COVID-pneumonia in 2019 with residual lower body weakness and dyspepsia was admitted to the hospital on 11/06/2024 due to new onset heart failure. 1. Acute on chronic diastolic heart failure, (EF 55 to 60%) 2. Acute on chronic kidney disease stage IV 3. Hypertensive urgency ?Patient came in with shortness of breath and a BNP of 464 ?Patient blood pressure has been elevated since admission and is currently 169/93 ?EKG showed sinus rhythm ?Echo on 11/06/2024 had the following findings: Normal LV size and function. Mild LVH. Stage I diastolic dysfunction. Estimated EF 55-60% Mild RV dilatation. Normal RV function. Trace MR, TR. Mild AV sclerosis without stenosis. Possible epicardial fat pad near the RA or trace pericardial effusion Plan: ?Recommend to continue Lasix 40mg qday for now and discuss with nephrology for further recommendations. -Recommend Metoprolol XL 50mg qday and titrate as blood pressure allows -Patient does not seem volume overloaded and does not have any heart failure symptoms at this time. -Recommend to get A1c, TSH, and lipid panel for risk stratification ?Strict LILIAN's ? Daily weights ? Fluid restrictions ? Low-sodium diet ?Recommend to keep potassium and magnesium above 4 and 2 respectively to avoid any further arrhythmias 3. Acute on chronic kidney disease stage IV ?Patient came in with BUN of 76 and creatinine 3.8, he states that he has some kidney disease. ?Patient may have slightly has some underlying CKD given the history of diabetes -Recommend to get nephrology consult ? Continue current management as per primary care team 4. IDDM 5. Hyperlipidemia ?Continue current management per Medicare team 6. Active heroin user and on methadone 7. COVID on 2021 with residual lower body weakness ?Continue current management as per primary care team 8. Normocytic normochromic anemia ? Continue current management as per primary care team Continue rest of management as per primary team. Cardiology will sign off, please reach out with any questions. We are grateful to be able to participate in Mr. Lu's care. Thank you for the consult Plan of care discussed with attending [place], Dr. Joby Perez MD PGY-1 Attending Provider Attestation/Addendum I have personally seen and examined the patient separately on the above date of service and discussed the plan of care with the resident. I reviewed the resident Dr. Meyer consultation progress note and agree with the resident findings and plan in the note above and have also edited the documentation to reflect my findings and plan. Patient does not have a history of CKD stage IV and had a history of dialysis physicians done in 2021. Overall patient does not appear to be significantly volume overloaded at the present point of time. Patient does have some shortness of breath and some trace edema which could all be secondary to his chronic kidney disease. Patient does have diastolic dysfunction on the echocardiogram and recommend to continue oral Lasix as per nephrology recommendations and no need of any IV diuresis at the present point of time. Patient does have a primary doctor as well as kidney doctor that he follows up and recommend to follow-up with him regularly. Recommend aggressive control of the hypertension as well as the diabetes mellitus. Continue amlodipine 10 mg once daily and hydralazine 100 mg 3 times daily. If patient able to tolerate start beta-blockers for blood pressure control. Lasix dose as per the nephrology team Rafa Hemphill M.D. Interventional Cardiology
[2024-11-07] MEDS: hydrALAZINE HCL 25 MG TABLET 100 MG PO ×2 (13:40→21:48)
--- NOTE | 2024-11-07 14:15 | ESPR_ITS ---
Documentation for date of: 11/07/24 Subjective Subjective Interval history: Patient was seen and examined bedside. Lying comfortably on the bed. Reported that his shortness of breath subsided and feeling well. Cardiology was consulted, will appreciate the recommendations. Will continue diuresis for now. Planning to discharge tomorrow Exam Vital Signs Temp Pulse Resp BP Pulse Ox O2 Del Method O2 Flow Rate 98.6 F 86 19 128/74 96 Room Air 3 11/07/24 12:00 11/07/24 13:40 11/07/24 12:00 11/07/24 13:40 11/07/24 12:00 11/07/24 12:00 11/07/24 04:00 Narrative Exam General: Awake. lying comfortably in the bed HEENT: Normocephalic, atraumatic, mucous membranes moist. Heart: Regular rate and rhythm, no murmurs. Lungs: Clear to auscultation with no wheezing or crackles. Abdomen: Soft, nondistended, nontender, positive bowel sounds. ?No guarding or rebound tenderness. Neurologic: Alert and oriented x3, no gross neurological deficit, and patient able to move all 4 extremities. Extremities: mild 1+ pedal edema extending upto ankles. Skin: No rash or ecchymoses. Objective Labs 11/09/24 04:45 11/09/24 04:45 Labs: Laboratory Results - last 24 hr 11/07/24 05:00 WBC 8.8 RBC 3.16 L Hgb 9.2 L Hct 29.3 L MCV 93 MCH 29.1 MCHC 31.4 RDW Std Deviation 53.1 H Plt Count 172 Neut % (Auto) 65 Lymph % (Auto) 28 [place] % (Auto) 6 Eos % (Auto) 0 Baso % (Auto) 0 Neut # (Auto) 5.7 Lymph # (Auto) 2.4 [place] # (Auto) 0.5 Eos # (Auto) 0.0 Baso # (Auto) 0.0 Immature Gran # (Auto) 0.06 H Absolute Nucleated RBC 0.00 Immature Gran % 1 H Nucleated RBC % 0 Sodium 138 Potassium 4.6 Chloride 106 Carbon Dioxide 20.5 Anion Gap 12 BUN 82 H Creatinine 3.7 H Estim Creat Clear Calc 27.8 L eGFR 18 L BUN/Creatinine Ratio 22 H Glucose 67 L Calculated Osmolality 298 H Calcium 8.9 Magnesium 2.5 ABG Interpretation ABG results: 11/06/24 06:37 ABG pH 7.25 L ABG pCO2 47 ABG pO2 89 ABG HCO3 20 ABG O2 Saturation 96 ABG Base Excess -7 L Quality Measures Quality Measures none Assessment & Plan Assessment Current Active Medications: Generic Name Dose Route Start Last Admin Trade Name Volodymyrq PRN Reason Stop Dose Admin Amlodipine Besylate 10 mg 11/07/24 09:00 11/07/24 10:21 Amlodipine Besylate 5 Mg Tablet PO 12/07/24 08:59 10 mg QDAY RAMSEY Administration Azithromycin 250 mg 11/07/24 09:00 11/07/24 08:24 Azithromycin 250 Mg Tablet PO 11/11/24 08:59 250 mg QDAY RAMSEY Administration Methadone 0 ea 11/07/24 11:00 11/07/24 10:14 Hydrochloride Oral PO 12/07/24 10:59 90 bottle Concentrate 10 Mg/Ml QDAY RAMSEY Administration Protocol Dextrose 25 ml 11/06/24 16:38 Dextrose 50%-Water Inj 50 Ml Syringe IV 12/06/24 16:37 Q15MIN PRN BG 50-70 responsive npo pt Dextrose 50 ml 11/06/24 16:38 Dextrose 50%-Water Inj 50 Ml Syringe IV 12/06/24 16:37 Q15MIN PRN BG <50 OR BG <70 & pt unresponsive Furosemide 40 mg 11/07/24 09:00 11/07/24 08:23 Furosemide Inj 10 Mg/Ml 4ml Vial IVP 12/07/24 08:59 40 mg QDAY RAMSEY Administration Glucagon 1 mg 11/06/24 16:38 Glucagon Inj 1 Mg Vial IM Q15MIN PRN BG <70, and no IV access Heparin Sodium (Porcine) 5,000 unit 11/06/24 14:00 11/07/24 13:42 Heparin Sod Inj 5000 Unit/Ml Vial SC 11/20/24 13:59 5,000 unit Q8HR RAMSEY Administration Hydralazine HCl 100 mg 11/07/24 14:00 11/07/24 13:40 Hydralazine Hcl 25 Mg Tablet PO 12/07/24 13:59 100 mg TID RAMSEY Administration Ceftriaxone Sodium/Dextrose 50 mls @ 100 mls/hr 11/06/24 09:30 11/07/24 08:24 Rocephin/D5w 1gm Iv Premix IV 11/13/24 09:29 100 mls/hr QDAY RAMSEY Administration Insulin Glargine 20 unit 11/06/24 21:00 11/07/24 08:22 Insulin Glargine (Lantus) 5 Unit/0.05 Ml (Per 5 Units) SC 12/06/24 20:59 20 unit BID RAMSEY Administration Insulin Human Lispro 0 unit 11/06/24 17:00 11/07/24 12:53 Insulin Lispro (Admelog) 1 Unit/0.01 Ml Unit SC 12/06/24 16:59 Not Given ACHS RAMSEY Protocol Ondansetron HCl 4 mg 11/06/24 09:28 Ondansetron Inj 2 Mg/Ml Inj 2 Ml IV 12/06/24 09:27 Q6H PRN NAUSEA OR VOMITING Protocol Plan 64-year-old male with hypertension, IDDM, hyperlipidemia, who presented with shortness of breath, orthopnea, and PND. He was found to have acute hypoxic respiratory failure in the setting of possible CHF versus bronchopneumonia and MIAN. # Acute hypoxic respiratory failure, resolved # Secondary to acute pulmonary edema from HFpEF versus MIAN # uncontrolled hypertension -Admitted to the hospital with complaints of shortness of breath lasting for 6 to 8 hours. -Unable to comment on PND episodes and orthopnea. -No past history of heart failure, CAD. -Vitals at the time of admission is blood pressure 168/92 mmHg, pulse 75 bpm, respiratory rate 15/min -Patient initially required oxygen in the ED, SpO2 98% with 4 L oxygen through nasal cannula. -Later patient got a dose of Lasix 40 Mg IV in the ED. -Echo was done that showed EF 55 to 60% with grade 1 diastolic dysfunction -TSH is within normal limits, lipid panel showed mildly elevated triglycerides 169. Plan -Patient was weaned off oxygen after receiving the Lasix. -Started on Lasix 40 Mg IV daily -Started on ceftriaxone and azithromycin in view of suspected underlying possible pneumonia. -Cardiology was consulted and will appreciate recommendations. -Patient was started on fluid restriction 1500 mL/day and salt restriction, sodium<2 g/day. # History of hypertension -Patient was using amlodipine 10 Mg p.o. daily, hydralazine 100 Mg p.o. 3 times daily, hydrochlorothiazide 25 Mg daily, lisinopril 40 Mg p.o. daily Plan -Salt restriction -Resumed his amlodipine, hydralazine and started on Lasix. -Will monitor the blood pressures and adjust medications accordingly # History of insulin-dependent diabetes mellitus -Patient is on insulin glargine 20 units subcutaneous twice daily -HbA1c is 4.8 Plan -Resumed insulin glargine 20 units subcutaneous twice daily, as the patient is found to have low glucose levels changed insulin glargine to 14 units subcutaneous twice daily -Sliding scale is ordered. # Acute kidney injury versus CKD Likely secondary to combined diabetes and hypertension -Per patient, patient had history of kidney problem diagnosed at the time of COVID and had dialysis sessions at that time -Baseline creatinine is not known -Creatinine at the time of admission is 3.8 -renal ultrasound showed mild bilateral renal parenchymal scarring Plan -Urine electrolytes are ordered. -Nephrology was consulted and pending recommendations. -Will monitor renal functions. # History of hyperlipidemia -Patient is using atorvastatin 80 Mg p.o. daily, gemfibrozil 600 Mg p.o. twice daily -Lipid panel done during this admission showed mildly elevated triglyceride levels -Will resume his home medication on discharge. # History of opioid addiction, Deaddiction program -Patient is following [facility] in [place] and is on methadone -Will continue medications as needed. Hospital Maintenance: Dispo: Med/tele DVT ppx: Heparin GI ppx: Not needed Diet: Low-sodium, cardiac diet IV lines: Peripheral Code status: Full code Patient plan of care was discussed with the attending physician, Dr. Maria Elena Whitehead, PGY1 Attending Provider Attestation/Addendum I reviewed labs, imaging, EKG, home medications and prior available records. Face to face evaluation was performed by me. I have personally examined the patient and discussed assessment and plan with the IM team. I reviewed the resident note and agree with the plan with exceptions as below. See my addendum in a separate note for the same date.
[2024-11-07 16:37] LABS: Glucose Estimated Average 91 mg/dL (80-131); Hemoglobin A1C 4.8 % Hgb (4.8-6.0)
[2024-11-07 16:50] LABS: Cardiac Risk Estimate 4.9 RATIO (4.0-6.7); Cholesterol 182 mg/dL (132-200); HDL Cholesterol 37 mg/dL (40-60); LDL Cholesterol,Calculated 111 mg/dL (0-130); Thyroid Stimulating Hormone 1.66 uIU/mL (0.55-4.78); Triglycerides 169 mg/dL (30-150)
[2024-11-07 20:50] LABS: Chloride,Urine Random 71.6 mMol/L (55.0-125.0); Creatinine,Random Urine 48 mg/dL (30-125); Potassium,Urine Random 26 mMol/L (12-62); Sodium,Urine Random 68.7 mMol/L (20.0-110.0)
[2024-11-07] MEDS: INSULIN GLARGINE (Lantus) 5 UNIT/0.05 ML (PER 5 UNITS) 14 UNIT SC (21:47)
[2024-11-08] VITALS (13 sets, daily range): BP systolic 124–172; BP diastolic 80–101; PULSE 75–115; RESP 12–21; TEMP 36.4–36.8; O2SAT 95–98
[2024-11-08] MEDS: HEPARIN SOD INJ 5000 UNIT/ML VIAL SC ×3 (05:20→21:28)
[2024-11-08] MEDS: hydrALAZINE HCL 25 MG TABLET 100 MG PO ×3 (05:21→21:28)
[2024-11-08 06:18] LABS: Basophils # (Auto) 0.1 Thou/mm3 (0.0-0.2); Basophils % (Auto) 1 % (0-2.5); Eosinophils # (Auto) 0.1 Thou/mm3 (0.0-0.5); Eosinophils % (Auto) 1 % (0-10); Hematocrit 30.5 % (41.0-53.0); Hemoglobin 9.7 g/dL (13.5-16.0); Immature Granulocytes % (Auto) 1 % (0-0); Immature Granulocytes Auto 0.05 Thou/mm3 (0.00-0.00); Lymphocytes # (Auto) 4.9 Thou/mm3 (1.0-4.8); Lymphocytes % (Auto) 54 % (10-50); Mean Corpuscular HGB Conc 31.8 g/dl (31.0-37.0); Mean Corpuscular Hemoglobin 28.9 pg (25.0-35.0); Mean Corpuscular Volume 91 fL (80-100); Monocytes # (Auto) 0.6 Thou/mm3 (0.0-0.8); Monocytes % (Auto) 6 % (0-12); Neutrophils # (Auto) 3.4 Thou/mm3 (1.8-7.7); Neutrophils % (Auto) 38 % (37-80); Nucleated Red Blood Cell % 0 /100 WBC (0); Platelet Count 177 Thou/mm3 (140-440); RDW Standard Deviation 50.6 fL (35.1-43.9); Red Blood Count 3.36 Miln/mm3 (4.50-5.90); White Blood Count 9.2 Thou/mm3 (3.8-10.6)
[2024-11-08 06:36] LABS: Anion Gap 12 (7-16); BUN/Creatinine Ratio 24 Ratio (12-20); Blood Urea Nitrogen 90 mg/dL (9-23); Calcium 8.8 mg/dL (8.3-10.6); Carbon Dioxide 22.5 mMol/L (20.0-31.0); Chloride 106 mMol/L (98-107); Creatinine (Component) 3.8 mg/dL (0.6-1.3); Estimated Creatinine Clearance 26.9 mL/min (>60); Glucose 54 mg/dL (74-106); Magnesium 2.5 mg/dL (1.6-2.6); Osmolality,Calculated 305 (275-295); Potassium 4.3 mMol/L (3.4-5.1); Sodium 140 mMol/L (136-145); eGFR 17 See Note
[2024-11-08] MEDS: amLODIPine BESYLATE 5 MG TABLET 10 MG PO (08:07)
[2024-11-08] MEDS: AZITHROMYCIN 250 MG TABLET PO (08:08)
[2024-11-08] MEDS: METHADONE HYDROCHLORIDE PO (08:08)
[2024-11-08] MEDS: FUROSEMIDE INJ 10 MG/ML 4ML VIAL 40 MG IVP (08:11)
[2024-11-08] MEDS: cefTRIAXone/D5w 1gm IV premix 50 ML IV (08:14)
--- NOTE | 2024-11-08 08:47 | ESCONSULT_ITS ---
History of Present Illness Data of Consult Requesting Physician: Brandon Arredondo MD Primary Care Provider: Physician No Primary/Family Family Provider: 64-year-old male with history of hypertension, on methadone following at the [facility] in [place], hyperlipidemia, insulin-dependent diabetes mellitus, and dyspepsia, who presented with a chief complaint of shortness of breath. Nephrology called for MIAN vs CKD. Pt states that had kidney failure during COVID and was on dialysis for few sessions. Pt is seen today on Video call/Tele. Consult Narrative cc:: cc: Brandon Arredondo MD Review of Systems Review of Systems Systems Reviewed: All systems reviewed, normal except as documented Meds Home Medications and Allergies Home Medications ?Medication ?Instructions ?Recorded ?Confirmed ?Type amlodipine 10 mg tablet 10 mg QDAY 11/06/24 11/06/24 History atorvastatin 80 mg tablet 80 mg QDAY 11/06/24 11/06/24 History esomeprazole magnesium 40 mg 40 mg QDAY 11/06/24 11/06/24 History capsule,delayed release gemfibrozil 600 mg tablet 600 mg BID 11/06/24 11/06/24 History hydralazine 100 mg tablet 100 mg PO TID 11/06/24 11/06/24 History hydrochlorothiazide 25 mg tablet 25 mg QDAY 11/06/24 11/06/24 History insulin glargine 100 unit/mL (3 20 unit subcut BID 11/06/24 11/06/24 History mL) subcutaneous pen (Basaglar KwikPen U-100 Insulin) lisinopril 40 mg tablet 40 mg QDAY 11/06/24 11/06/24 History Allergies Allergy/AdvReac Type Severity Reaction Status Date / Time No Known Allergies Allergy Verified 11/06/24 05:59 Exam Vital Signs Temp Pulse Resp BP Pulse Ox O2 Del Method O2 Flow Rate 97.6 F 98 12 172/89 H 98 Room Air 3 11/08/24 04:00 11/08/24 08:11 11/08/24 04:00 11/08/24 08:11 11/08/24 04:00 11/08/24 04:00 11/07/24 04:00 Narrative Exam No acute distress breathing well feels better Results Labs 11/08/24 05:25 11/08/24 05:25 Labs: Short CBC 11/08/24 Range/Units 05:25 WBC 9.2 (3.8-10.6) Thou/mm3 Hgb 9.7 L (13.5-16.0) g/dL Hct 30.5 L (41.0-53.0) % Plt Count 177 (140-440) Thou/mm3 [facility] 11/08/24 05:25 Sodium 140 Potassium 4.3 Chloride 106 Carbon Dioxide 22.5 BUN 90 H Creatinine 3.8 H Glucose 54 L Calcium 8.8 ABG Interpretation ABG results: 11/06/24 06:37 ABG pH 7.25 L ABG pCO2 47 ABG pO2 89 ABG HCO3 20 ABG O2 Saturation 96 ABG Base Excess -7 L Assessment & Plan Assessment and plan (1) Stage 4 chronic kidney disease: Status: Acute Assessment and plan: Pt has advanced kidney disease Pt has proteinuria due to due to diabetic nephropathy advisedd low sodium diet renal US reviewed need close follow up as out pt office number to call to make appointment is [phone] f/u in 2 weeks as out pt
[2024-11-08 10:51] LABS: Creatinine,Random Urine 24 mg/dL (30-125); Protein Total, Random Urine 154 mg/dL (1-14)
[2024-11-08] MEDS: carVEDILOL 12.5 MG TABLET PO ×2 (11:31→17:06)
--- NOTE | 2024-11-08 14:17 | PC.NURSE ---
Dr. Hutchinson teleconference with patient
--- NOTE | 2024-11-08 15:16 | ESPR_ITS ---
Documentation for date of: 11/08/24 Subjective Subjective Interval history: No acute overnight events. Patient on room air, breathing well, satting well. Tolerating oral intake without nausea or vomiting. Having regular bowel movement. Ambulating independently to the restroom. Denies fever, chills, headaches, chest pain, sob, cough, GI or urinary symptoms. Exam Vital Signs Temp Pulse Resp BP Pulse Ox O2 Del Method O2 Flow Rate 98.2 F 112 H 18 146/92 H 96 Room Air 3 11/08/24 12:00 11/08/24 13:32 11/08/24 12:00 11/08/24 13:32 11/08/24 12:00 11/08/24 12:00 11/07/24 04:00 Narrative Exam General: Awake. lying comfortably in the bed HEENT: Normocephalic, atraumatic, mucous membranes moist. Heart: Regular rate and rhythm, no murmurs. Lungs: Clear to auscultation with no wheezing or crackles. Abdomen: Soft, nondistended, nontender, positive bowel sounds. ?No guarding or rebound tenderness. Neurologic: Alert and oriented x3, no gross neurological deficit, and patient able to move all 4 extremities. Extremities: mild 1+ pedal edema extending upto ankles. Skin: No rash or ecchymoses. Objective Labs 11/08/24 05:25 11/08/24 05:25 Labs: Laboratory Results - last 24 hr 11/07/24 11/07/24 11/08/24 05:00 20:00 05:25 WBC 9.2 RBC 3.36 L Hgb 9.7 L Hct 30.5 L MCV 91 MCH 28.9 MCHC 31.8 RDW Std Deviation 50.6 H Plt Count 177 Neut % (Auto) 38 Lymph % (Auto) 54 H Barron % (Auto) 6 Eos % (Auto) 1 Baso % (Auto) 1 Neut # (Auto) 3.4 Lymph # (Auto) 4.9 H Barron # (Auto) 0.6 Eos # (Auto) 0.1 Baso # (Auto) 0.1 Immature Gran # (Auto) 0.05 H Absolute Nucleated RBC 0.00 Immature Gran % 1 H Nucleated RBC % 0 Sodium 140 Potassium 4.3 Chloride 106 Carbon Dioxide 22.5 Anion Gap 12 BUN 90 H Creatinine 3.8 H Estim Creat Clear Calc 26.9 L eGFR 17 L BUN/Creatinine Ratio 24 H Glucose [address] Glu mg/dL 91 Hemoglobin A1c 4.8 Calculated Osmolality 305 H Calcium 8.8 Magnesium 2.5 Triglycerides 169 H Cholesterol 182 LDL Cholesterol, Calc 111 HDL Cholesterol 37 L Cholesterol/HDL Ratio 4.9 TSH 1.66 Ur Random Creatinine 48 U Random Total Protein Ur Random Sodium 68.7 Ur Random Potassium 26 Ur Random Chloride 71.6 11/08/24 09:23 WBC RBC Hgb Hct MCV MCH MCHC RDW Std Deviation Plt Count Neut % (Auto) Lymph % (Auto) Barron % (Auto) Eos % (Auto) Baso % (Auto) Neut # (Auto) Lymph # (Auto) Barron # (Auto) Eos # (Auto) Baso # (Auto) Immature Gran # (Auto) Absolute Nucleated RBC Immature Gran % Nucleated RBC % Sodium Potassium Chloride Carbon Dioxide Anion Gap BUN Creatinine Estim Creat Clear Calc eGFR BUN/Creatinine Ratio Glucose Estimated Ave Glu mg/dL Hemoglobin A1c Calculated Osmolality Calcium Magnesium Triglycerides Cholesterol LDL Cholesterol, Calc HDL Cholesterol Cholesterol/HDL Ratio TSH Ur Random Creatinine 24 L U Random Total Protein 154 H Ur Random Sodium Ur Random Potassium Ur Random Chloride ABG Interpretation ABG results: 11/06/24 06:37 ABG pH 7.25 L ABG pCO2 47 ABG pO2 89 ABG HCO3 20 ABG O2 Saturation 96 ABG Base Excess -7 L Quality Measures Quality Measures none Assessment & Plan Assessment Current Active Medications: Generic Name Dose Route Start Last Admin Trade Name Freq PRN Reason Stop Dose Admin Amlodipine Besylate 10 mg 11/07/24 09:00 11/08/24 08:07 Amlodipine Besylate 5 Mg Tablet PO 12/07/24 08:59 10 mg QDAY RAMSEY Administration Azithromycin 250 mg 11/07/24 09:00 11/08/24 08:08 Azithromycin 250 Mg Tablet PO 11/11/24 08:59 250 mg QDAY RAMSEY Administration Carvedilol 12.5 mg 11/08/24 11:00 11/08/24 11:31 Carvedilol 12.5 Mg Tablet PO 12/08/24 10:59 12.5 mg BIDWM RAMSEY Administration Methadone 0 ea 11/07/24 11:00 11/08/24 08:08 Hydrochloride Oral PO 12/07/24 10:59 1 bottle Concentrate 10 Mg/Ml QDAY RAMSEY Administration Protocol Dextrose 25 ml 11/06/24 16:38 Dextrose 50%-Water Inj 50 Ml Syringe IV 12/06/24 16:37 Q15MIN PRN BG 50-70 responsive npo pt Dextrose 50 ml 11/06/24 16:38 Dextrose 50%-Water Inj 50 Ml Syringe IV 12/06/24 16:37 Q15MIN PRN BG <50 OR BG <70 & pt unresponsive Furosemide 40 mg 11/07/24 09:00 11/08/24 08:11 Furosemide Inj 10 Mg/Ml 4ml Vial IVP 12/07/24 08:59 40 mg QDAY RAMSEY Administration Glucagon 1 mg 11/06/24 16:38 Glucagon Inj 1 Mg Vial IM Q15MIN PRN BG <70, and no IV access Heparin Sodium (Porcine) 5,000 unit 11/06/24 14:00 11/08/24 13:33 Heparin Sod Inj 5000 Unit/Ml Vial SC 11/20/24 13:59 5,000 unit Q8HR RAMSEY Administration Hydralazine HCl 100 mg 11/07/24 14:00 11/08/24 13:32 Hydralazine Hcl 25 Mg Tablet PO 12/07/24 13:59 100 mg TID RAMSEY Administration Ceftriaxone Sodium/Dextrose 50 mls @ 100 mls/hr 11/06/24 09:30 11/08/24 08:14 Rocephin/D5w 1gm Iv Premix IV 11/13/24 09:29 100 mls/hr QDAY RAMSEY Administration Insulin Glargine 20 unit 11/08/24 21:00 Insulin Glargine (Lantus) 5 Unit/0.05 Ml (Per 5 Units) SC 12/08/24 20:59 HS [facility] Insulin Human Lispro 0 unit 11/08/24 07:59 11/08/24 11:32 Insulin Lispro (Admelog) 1 Unit/0.01 Ml Unit SC 12/08/24 07:29 Not Given AC [facility] Protocol Ondansetron HCl 4 mg 11/06/24 09:28 Ondansetron Inj 2 Mg/Ml Inj 2 Ml IV 12/06/24 09:27 Q6H PRN NAUSEA OR VOMITING Protocol Plan 64-year-old male with hypertension, IDDM, hyperlipidemia, who presented with shortness of breath, orthopnea, and PND. He was found to have acute hypoxic respiratory failure in the setting of possible CHF versus bronchopneumonia and MIAN. # Acute hypoxic respiratory failure, resolved # Secondary to acute pulmonary edema from HFpEF versus MIAN # uncontrolled hypertension -Admitted to the hospital with complaints of shortness of breath lasting for 6 to 8 hours. -Unable to comment on PND episodes and orthopnea. -No past history of heart failure, CAD. -Vitals at the time of admission is blood pressure 168/92 mmHg, pulse 75 bpm, respiratory rate 15/min -Patient initially required oxygen in the ED, SpO2 98% with 4 L oxygen through nasal cannula. -Later patient got a dose of Lasix 40 Mg IV in the ED. -Echo was done that showed EF 55 to 60% with grade 1 diastolic dysfunction -TSH is within normal limits, lipid panel showed mildly elevated triglycerides 169. Plan -Patient was weaned off oxygen after receiving the Lasix. -Started on Lasix 40 Mg IV daily -Started on ceftriaxone and azithromycin in view of suspected underlying possible pneumonia. -Cardiology was consulted and will appreciate recommendations. -Patient was started on fluid restriction 1500 mL/day and salt restriction, sodium<2 g/day. # History of hypertension -Patient was using amlodipine 10 Mg p.o. daily, hydralazine 100 Mg p.o. 3 times daily, hydrochlorothiazide 25 Mg daily, lisinopril 40 Mg p.o. daily BP 172/89 Plan -Salt restriction ? Continue home AMLODIPINE 10 mg daily ? Continue home DIAZINE 100 mg TID ? Discontinued home HYDROCHLOROTHIAZIDE 2/2 disease ? Started CARVEDILOL 12.5 mg BID -Will monitor the blood pressures and adjust medications accordingly # ?History of insulin-dependent diabetes mellitus HbA1c is 4.8, unclear if patient is diabetic however he is on home INSULIN GLUCOSE 56 overnight, improved with juice and carbs ? Decrease INSULIN GLARGINE to 20 units daily ? Continue sliding scale ? Accu-Cheks # Acute kidney injury versus CKD # Diabetic nephropathy Likely secondary to combined diabetes and hypertension -Per patient, patient had history of kidney problem diagnosed at the time of COVID and had dialysis sessions at that time -Baseline creatinine is not known -Creatinine at the time of admission is 3.8 -renal ultrasound showed mild bilateral renal parenchymal scarring -Protein excretion calcualted at 6.4 g/day, above nephrotic range Plan -Urine electrolytes are ordered. -Nephrology was consulted and pending recommendations. -Will monitor renal functions. ? Nephrology, Dr. Simental recommended outpatient follow-up in 2 weeks # History of hyperlipidemia -Patient is using atorvastatin 80 Mg p.o. daily, gemfibrozil 600 Mg p.o. twice daily -Lipid panel done during this admission showed mildly elevated triglyceride levels -Will resume his home medication on discharge. # History of opioid addiction, Deaddiction program -Patient is following [facility] in [place] and is on methadone -Will continue medications as needed. Hospital Maintenance: Dispo: Med/tele DVT ppx: Heparin GI ppx: Not needed Diet: Low-sodium, cardiac diet IV lines: Peripheral Code status: Full code Patient case was discussed with attending, Aron Kirby DO and senior resident Dr. Eid. Abilio Louis DO PGYI Attending Provider Attestation/Addendum Pneumonia, left lower lobe I have discussed and was present for the essential components of the history, physical examination, diagnosis, and treatment plan with the resident. I agree with the patient's care as documented by the resident and amended herein by me. Dave Kirby DO. No acute events overnight, vital signs stable, patient afebrile overnight. Patient saturating 96% on room air. I/oh 1300/2650, weight 122 kg. Significant labs include a normal WBC, stable hemoglobin at 9.7, BUN 90, creatinine slight uptrend at 3.8 today, urine studies demonstrating a protein to creatinine ratio of 6.42 Significant problem list/plan: #New HFpEF diagnosis with exacerbation, EF 55 to 60% per echo #Acute hypoxic respiratory failure secondary to above #?CAP #MIAN #Hypertension -Diuresis, Lasix 40 mg IV daily -Continue ceftriaxone and azithromycin for possible underlying CAP -Cardiology consulted, daily weights, fluid restriction, low-sodium diet, strict I's and O's as well as electrolyte repletion to include potassium and magnesium greater than 4 and 2 respectively ordered. Will continue amlodipine 10 mg daily and hydralazine 100 mg 3 times per day, also started Coreg today. -Nephrology consulted, appreciate recommendations, low-sodium diet ordered, patient will need close follow-up on an outpatient basis 2 weeks after discharge. Although this document has been carefully reviewed, there may still be some phonetic and other typographical errors. These errors are purely grammatical due to imperfections in the software program and should not be construed in any way to compromise the substance of the patient's medical care during this visit.
[2024-11-08] MEDS: INSULIN GLARGINE (Lantus) 5 UNIT/0.05 ML (PER 5 UNITS) 20 UNIT SC (20:56)
[2024-11-09] VITALS (8 sets, daily range): BP systolic 142–165; BP diastolic 76–92; PULSE 75–106; RESP 14–21; TEMP 36.3–36.5; O2SAT 94–98; BMI 36.2
[2024-11-09] MEDS: hydrALAZINE HCL 25 MG TABLET 100 MG PO (05:52)
[2024-11-09] MEDS: HEPARIN SOD INJ 5000 UNIT/ML VIAL SC (05:53)
[2024-11-09 06:05] LABS: Basophils # (Auto) 0.1 Thou/mm3 (0.0-0.2); Basophils % (Auto) 1 % (0-2.5); Eosinophils # (Auto) 0.2 Thou/mm3 (0.0-0.5); Eosinophils % (Auto) 2 % (0-10); Hematocrit 28.9 % (41.0-53.0); Hemoglobin 9.2 g/dL (13.5-16.0); Immature Granulocytes % (Auto) 0 % (0-0); Immature Granulocytes Auto 0.03 Thou/mm3 (0.00-0.00); Lymphocytes # (Auto) 3.1 Thou/mm3 (1.0-4.8); Lymphocytes % (Auto) 43 % (10-50); Mean Corpuscular HGB Conc 31.8 g/dl (31.0-37.0); Mean Corpuscular Hemoglobin 29.2 pg (25.0-35.0); Mean Corpuscular Volume 92 fL (80-100); Monocytes # (Auto) 0.5 Thou/mm3 (0.0-0.8); Monocytes % (Auto) 8 % (0-12); Neutrophils # (Auto) 3.3 Thou/mm3 (1.8-7.7); Neutrophils % (Auto) 46 % (37-80); Nucleated Red Blood Cell % 0 /100 WBC (0); Platelet Count 156 Thou/mm3 (140-440); RDW Standard Deviation 51.5 fL (35.1-43.9); Red Blood Count 3.15 Miln/mm3 (4.50-5.90); White Blood Count 7.2 Thou/mm3 (3.8-10.6)
[2024-11-09 06:34] LABS: Alanine Aminotransferase 14 U/L (10-49); Albumin, Serum 3.9 gm/dL (3.4-4.8); Albumin/Globulin Ratio 1.1 (1.2-2.2); Alkaline Phosphatase 62 U/L (46-116); Anion Gap 11 (7-16); Aspartate Amino Transferase 20 U/L (0-34); BUN/Creatinine Ratio 24 Ratio (12-20); Bilirubin,Total 0.3 mg/dL (0.3-1.2); Blood Urea Nitrogen 88 mg/dL (9-23); Calcium 8.6 mg/dL (8.3-10.6); Calcium (Corrected) 8.7 mg/dL (8.5-10.1); Carbon Dioxide 23.5 mMol/L (20.0-31.0); Chloride 106 mMol/L (98-107); Creatinine (Component) 3.7 mg/dL (0.6-1.3); Estimated Creatinine Clearance 27.5 mL/min (>60); Globulin 3.4 gm/dL (2.3-3.5); Glucose 80 mg/dL (74-106); Magnesium 2.5 mg/dL (1.6-2.6); Osmolality,Calculated 305 (275-295); Phosphorous 5.1 mg/dL (2.4-5.1); Potassium 4.2 mMol/L (3.4-5.1); Sodium 140 mMol/L (136-145); Total Protein 7.3 gm/dL (5.7-8.2); eGFR 18 See Note
[2024-11-09] MEDS: METHADONE HYDROCHLORIDE PO (08:28)
[2024-11-09] MEDS: carVEDILOL 12.5 MG TABLET 25 MG PO (08:32)
[2024-11-09] MEDS: amLODIPine BESYLATE 5 MG TABLET 10 MG PO (08:32)
[2024-11-09] MEDS: AZITHROMYCIN 250 MG TABLET PO (08:33)
[2024-11-09] MEDS: cefTRIAXone/D5w 1gm IV premix 50 ML IV (08:34)
[2024-11-09] MEDS: FUROSEMIDE INJ 10 MG/ML 4ML VIAL 40 MG IVP (08:35)
--- NOTE | 2024-11-09 10:30 | PD.RESPRO ---
Documentation for date of: 11/09/24 Subjective Subjective Interval history: Patient seen and examined. No acute problems over night. Feels much better. Exam Vital Signs Temp Pulse Resp BP Pulse Ox O2 Del Method O2 Flow Rate 97.7 F 84 14 159/89 H 98 Room Air 3 11/09/24 08:00 11/09/24 08:35 11/09/24 08:00 11/09/24 08:35 11/09/24 08:00 11/09/24 08:00 11/07/24 04:00 Narrative Exam General: Awake. lying comfortably in the bed HEENT: Normocephalic, atraumatic, mucous membranes moist. Heart: Regular rate and rhythm, no murmurs. Lungs: Clear to auscultation with no wheezing or crackles. Abdomen: Soft, nondistended, nontender, positive bowel sounds. ?No guarding or rebound tenderness. Neurologic: Alert and oriented x3, no gross neurological deficit, and patient able to move all 4 extremities. Extremities: mild 1+ pedal edema extending upto ankles. Skin: No rash or ecchymoses. Objective Labs 11/09/24 04:45 11/09/24 04:45 Labs: Laboratory Results - last 24 hr 11/08/24 11/09/24 09:23 04:45 WBC 7.2 RBC 3.15 L Hgb 9.2 L Hct 28.9 L MCV 92 MCH 29.2 MCHC 31.8 RDW Std Deviation 51.5 H Plt Count 156 Neut % (Auto) 46 Lymph % (Auto) 43 Page % (Auto) 8 Eos % (Auto) 2 Baso % (Auto) 1 Neut # (Auto) 3.3 Lymph # (Auto) 3.1 Page # (Auto) 0.5 Eos # (Auto) 0.2 Baso # (Auto) 0.1 Immature Gran # (Auto) 0.03 H Absolute Nucleated RBC 0.00 Immature Gran % 0 Nucleated RBC % 0 Sodium 140 Potassium 4.2 Chloride 106 Carbon Dioxide 23.5 Anion Gap 11 BUN 88 H Creatinine 3.7 H Estim Creat Clear Calc 27.5 L eGFR 18 L BUN/Creatinine Ratio 24 H Glucose 80 Calculated Osmolality 305 H Calcium 8.6 Corrected Calcium 8.7 Phosphorus 5.1 Magnesium 2.5 Total Bilirubin 0.3 AST 20 ALT 14 Alkaline Phosphatase 62 Total Protein 7.3 Albumin 3.9 Globulin 3.4 Albumin/Globulin Ratio 1.1 L Ur Random Creatinine 24 L U Random Total Protein 154 H ABG Interpretation ABG results: 11/06/24 06:37 ABG pH 7.25 L ABG pCO2 47 ABG pO2 89 ABG HCO3 20 ABG O2 Saturation 96 ABG Base Excess -7 L Quality Measures Quality Measures none Assessment & Plan Assessment Current Active Medications: Generic Name Dose Route Start Last Admin Trade Name Freq PRN Reason Stop Dose Admin Amlodipine Besylate 10 mg 11/07/24 09:00 11/09/24 08:32 Amlodipine Besylate 5 Mg Tablet PO 12/07/24 08:59 10 mg QDAY RAMSEY Administration Azithromycin 250 mg 11/07/24 09:00 11/09/24 08:33 Azithromycin 250 Mg Tablet PO 11/11/24 08:59 250 mg QDAY RAMSEY Administration Methadone 0 ea 11/07/24 11:00 11/09/24 08:28 Hydrochloride Oral PO 12/07/24 10:59 1 bottle Concentrate 10 Mg/Ml QDAY RAMSEY Administration Protocol Dextrose 25 ml 11/06/24 16:38 Dextrose 50%-Water Inj 50 Ml Syringe IV 12/06/24 16:37 Q15MIN PRN BG 50-70 responsive npo pt Dextrose 50 ml 11/06/24 16:38 Dextrose 50%-Water Inj 50 Ml Syringe IV 12/06/24 16:37 Q15MIN PRN BG <50 OR BG <70 & pt unresponsive Furosemide 40 mg 11/07/24 09:00 11/09/24 08:35 Furosemide Inj 10 Mg/Ml 4ml Vial IVP 12/07/24 08:59 40 mg QDAY RAMSEY Administration Glucagon 1 mg 11/06/24 16:38 Glucagon Inj 1 Mg Vial IM Q15MIN PRN BG <70, and no IV access Heparin Sodium (Porcine) 5,000 unit 11/06/24 14:00 11/09/24 05:53 Heparin Sod Inj 5000 Unit/Ml Vial SC 11/20/24 13:59 5,000 unit Q8HR RAMSEY Administration Hydralazine HCl 100 mg 11/07/24 14:00 11/09/24 05:52 Hydralazine Hcl 25 Mg Tablet PO 12/07/24 13:59 100 mg TID RAMSEY Administration Ceftriaxone Sodium/Dextrose 50 mls @ 100 mls/hr 11/06/24 09:30 11/09/24 08:34 Rocephin/D5w 1gm Iv Premix IV 11/13/24 09:29 100 mls/hr QDAY RAMSEY Administration Insulin Glargine 10 unit 11/09/24 21:00 Insulin Glargine (Lantus) 5 Unit/0.05 Ml (Per 5 Units) SC 12/09/24 20:59 HS RAMSEY Insulin Human Lispro 0 unit 11/08/24 07:59 11/09/24 07:30 Insulin Lispro (Admelog) 1 Unit/0.01 Ml Unit SC 12/08/24 07:29 Not Given AC [facility] Protocol Ondansetron HCl 4 mg 11/06/24 09:28 Ondansetron Inj 2 Mg/Ml Inj 2 Ml IV 12/06/24 09:27 Q6H PRN NAUSEA OR VOMITING Protocol Plan #Stage 4 chronic kidney disease: Recommendations: Pt has advanced kidney disease Pt has proteinuria due to due to diabetic nephropathy advisedd low sodium diet renal US reviewed need close follow up as out pt f/u in 2 weeks as out pt - Patient's care was discussed with my attending physician, Dr. Jasper Suarez MD Internal Medicine PGY-3
--- NOTE | 2024-11-09 12:00 | PC.SS ---
SS received a call from Ros @ [email or web address] program. She wanted updated notes for patient stay. [facility] but is a part of their program. They monitor medications and follow up on medical care as well as transportation assistance. Patient already has transport set up with his fruit packer face and fill. Patient ready for d/c. [facility] staff will follow up with patient post hospitalization. Nursing updated and will d/c home.
--- NOTE | 2024-11-09 14:28 | ESDS_ITS ---
<Statement entered by Cheryle Zarco MD - 11/09/24 19:47> Patient was seen and examined by me personally. I agree with the discharge plan as discussed with the human resource internship physician, and my attending, Dr. Arredondo. Cheryle Zarco MD, PGY-3 Planned Discharge Date 11/09/24 DS: Providers Provider Date of admission: 11/06/24 09:28 Primary care physician: Physician No Primary/Family Admitting Provider: Brandon Arredondo MD Attending Provider on Admission: Aron Kirby DO Consults: 11/06/24 07:55 Consult to Nephrology Stat Comment: MIAN Consulting Provider: Joseph Hutchinson 11/07/24 08:51 Consult to Cardiology Routine Comment: heart failure Consulting Provider: Rafa Hemphill Attending Provider on DC: Raul Whitehead MD Discharging Provider: Raul Whitehead MD DS: Diagnosis Problem List Completed Was Problem List Reviewed/Reconciled?: Yes Hospital Course Hospital Course Hospital course: A 64-year-old male with past medical history of hypertension, history of heart and kidney disease, bedridden since COVID uses wheelchair, opioid addiction on methadone following in the [facility] in [place], insulin-dependent diabetes mellitus, hyperlipidemia and dyspepsia presented to the hospital with shortness of breath and diagnosed to have HFpEF and CKD stage IV. Patient was found to have elevated blood pressure at the time of admission, 161/96 mmHg. Labs were unremarkable except for elevated creatinine 3.8. BNP is 464. Patient was treated with diuretics. Renal ultrasound showed mild renal parenchymal scar. Echocardiogram done showedNormal LV size and function. Mild LVH. Stage I diastolic dysfunction. Estimated EF 55-60%. Cardiology Dr. Hemphill was consulted and appreciated his recommendations. Dr. Hutchinson segment producer was consulted for CKD and recommended to follow-up with him in the outpatient basis. Patient was discharged to home with the following medications and recommendations. -Follow-up with PCP within 1 week of discharge. If you do not have appointment, please follow-up with the [facility] with Dr. Whitehead. Call [phone] to make an appointment. -Continue Lasix 40 Mg p.o. every other day -Continue amlodipine 10 Mg p.o. at bedtime, atorvastatin 80 Mg p.o. at bedtime and metoprolol 50 Mg XL -Insulin glargine dose is reduced to 10 units subcutaneous daily at bedtime. -Stopped lisinopril and hydralazine. -Recommended to follow-up with Dr. Hutchinson within 1 week of discharge -Return to ED if symptoms persist or return # Acute hypoxic respiratory failure, resolved # Secondary to acute pulmonary edema from HFpEF versus MIAN # uncontrolled hypertension # History of hypertension # History of insulin-dependent diabetes mellitus # Acute kidney injury versus CKD # History of hyperlipidemia # History of opioid addiction, Deaddiction program Patient plan of care was discussed with the attending physician, Dr. Arredondo and senior resident Dr. Haroldo Whitehead, PGY1 Time Spent with Patient Time attestation: Total time spent providing and/or coordinating discharge services: Time spent: Greater than 30 minutes Exam Vital Signs Temp Pulse Resp BP Pulse Ox O2 Del Method O2 Flow Rate 97.7 F 75 18 142/76 H 94 L Room Air 3 11/09/24 12:00 11/09/24 12:11/09/24 12:11/09/24 12:11/09/24 12:11/09/24 12:11/07/24 04:00 Narrative Exam General: Awake. HEENT: Normocephalic, atraumatic, mucous membranes moist. Heart: Regular rate and rhythm, no murmurs. Lungs: Clear to auscultation with no wheezing or crackles. Abdomen: Soft, nondistended, nontender, positive bowel sounds. ?No guarding or rebound tenderness. Neurologic: Alert and oriented x3, no gross neurological deficit, and patient able to move all 4 extremities. Extremities: No edema. Skin: No rash or ecchymoses. Discharge Plan Plan Patient Disposition: HOME (Self Care) Patient condition on transfer: Stable Care Plan Goals: Patient was discharged to home with the following medications and recommendations. -Follow-up with PCP within 1 week of discharge. If you do not have appointment, please follow-up with the [facility] with Dr. Whitehead. Call [phone] to make an appointment. -Continue Lasix 40 Mg p.o. every other day -Continue amlodipine 10 Mg p.o. at bedtime, atorvastatin 80 Mg p.o. at bedtime and metoprolol 50 Mg XL -Insulin glargine dose is reduced to 10 units subcutaneous daily at bedtime. -Stopped lisinopril and hydralazine. -Recommended to follow-up with Dr. Hutchinson within 1 week of discharge -Return to ED if symptoms persist or return Prescriptions/Referrals Prescriptions/Med Rec: New furosemide [Lasix] 40 mg tablet 40 mg PO Q OTHER DAY 30 Days Qty: 15 0RF (DME) FreeStyle Evangelista 3 Sensor Device See Rx Instructions .Route Qty: 1 0RF Rx Instructions: As directed metoprolol succinate [Toprol XL] 50 mg tablet extended release 24 hr 50 mg PO QDAY 30 Days Qty: 30 0RF Continued hydralazine 100 mg tablet 100 mg PO TID Patient Comments: take 1 tablet by mouth three times a day with food esomeprazole magnesium 40 mg capsule,delayed release(DR/EC) 40 mg QDAY Patient Comments: take 1 capsule by mouth once daily Changed amlodipine 10 mg tablet 10 mg PO HS 30 Days Qty: 30 0RF insulin glargine [Basaglar KwikPen U-100 Insulin] 100 unit/mL (3 mL) insulin pen 10 unit SUBCUT HS 30 Days Qty: 3 0RF Patient Comments: Inject 20 unit subcutaneously twice a day atorvastatin 80 mg tablet 80 mg PO HS 30 Days Qty: 30 0RF Held gemfibrozil 600 mg tablet 600 mg BID Hold Instructions: Resume on 11/23/24. HOLD until follow up with PCP Already on statin Patient Comments: take 1 tablet by mouth twice a day Discontinued hydrochlorothiazide 25 mg tablet 25 mg QDAY Patient Comments: take 1 tablet by mouth every morning lisinopril 40 mg tablet 40 mg QDAY Patient Comments: take 1 tablet by mouth once daily Referrals: Joseph Hutchinson MD [Physician] - (office number . call for appointment) No Primary/Family,Physician [Primary Care Provider] - Patient/Caregiver Discharge Instructions Discharge Activity: resume usual activities Other Discharge Activity Instructions:: ? Nephrology, Dr. Hutchinson recommended out patient follow-up in 1-2 weeks - HOLD gemfibrozil, already on statin Education Materials: How Your Kidneys Work, Kidney Failure Tx Options, Hypertension and Kidney Disease Print Language: Divehi Activity Restrictions/Additional Instructions: Call Dr. Hutchinson (segment producer) after discharge for follow up appointment [phone] Stand Alone Forms: Lois Award Info., Patient Portal Info Letter Discharge Order Discharge Orders: Discharge (Routine); Ordered 11/09/24 Ordered By: Byron Eid Quality Discharge Quality Measures VTE prophylaxis Attestestation Attestation I reviewed labs, imaging, EKG, home medications and prior available records. Face to face evaluation was performed by me. I have personally examined the patient and discussed assessment and plan with the IM team. I reviewed the resident note and agree with the plan with exceptions as below. Acute hypoxic respiratory failure New onset CHF CHF exacerbation Heart failure with preserved EF MIAN on CKD stage IV Uncontrolled hypertension Insulin-dependent diabetes mellitus He is on room air Will discharge on p.o. Lasix Echocardiogram showed EF of 55 to 60% with mild valvular disease. Cardiology was consulted for new onset CHF. Follow-up with cardiology as outpatient. Monitor kidney function and avoid nephrotoxins. Renally dosed medications. Consulted nephrology. Held lisinopril in the setting of MIAN. Reevaluate before resuming as outpatient. Started hydralazine and amlodipine. Monitor BP. Will discharge on amlodipine, hydralazine, metoprolol, and Lasix. Discharge on insulin 10 units nightly. Monitor fingersticks Time spent is 40 minutes. More than 50% of the time was spent on patient education and coordination of care.
== END 2024-11-09 13:10 | disposition home or self-care (01) | DRG 194 ==
LOC: SERX 08:15 → SERHOLD 09:40 → S2NX 19:23
PROVIDERS: Internal Medicine; Admitting Provider Student in an Organized Health Care Education/Training Program; Emergency Provider Emergency Medicine; Visit Provider Student in an Organized Health Care Education/Training Program
DX: I13.0 Hypertensive heart and chronic kidney disease with heart failure and stage 1 through stage 4 chronic kidney disease, or unspecified chronic kidney disease (principal); E78.1 Pure hyperglyceridemia; J96.01 Acute respiratory failure with hypoxia; Z79.4 Long term (current) use of insulin; E11.22 Type 2 diabetes mellitus with diabetic chronic kidney disease; N18.4 Chronic kidney disease, stage 4 (severe); N17.9 Acute kidney failure, unspecified; F11.20 Opioid dependence, uncomplicated; J81.0 Acute pulmonary edema; J18.9 Pneumonia, unspecified organism; I50.31 Acute diastolic (congestive) heart failure; E78.5 Hyperlipidemia, unspecified
CPT/HCPCS: 36415; 36600; 71045; 76770; 80048; 80053; 80061; 82436; 82570; 82803; 83036; 83735; 83880; 84100; 84133; 84156; 84300; 84443; 84484; 85025; 85379; 87400; 87634; 87811; 93005; 93306; 94640; 96365; 96372; 96375; 99285; A9270; J0696; J1643; J1815; J1940; J2919; J1644

== ENCOUNTER 2024-12-11 22:02 | Inpatient (IN) | payer MEDICAID, SELFPAY ==
[2024-12-11 22:04] VITALS: BP 132/75; PULSE 67; RESP 18; TEMP 36.5; O2SAT 97
[2024-12-11 22:31] VITALS: PULSE 60; RESP 16; O2SAT 90; BMI 36.6
--- NOTE | 2024-12-11 22:31 | PC.NURSE ---
First contact with pt in Room 5, pt changed into gown, connected to bedside group therapist, whiteboard updated, call light within reach.
[2024-12-11 22:37] VITALS: BP 138/83; PULSE 65; RESP 14; TEMP 36.7; O2SAT 98
--- NOTE | 2024-12-11 23:10 | EDNOTE_ITS ---
ED SOB =RME/HPI General Chief Complaint: Shortness of Breath/Dyspnea Stated Complaint: DIFFICULTY BREATHING Time Seen by Provider: 12/11/24 22:40 Arrival date/time: 12/11/24 22:02 RME / HPI RME / HPI Narrative: Dr. Andrade?s Main ED Evaluation: 64yo male with pmhx HTN, kidney disease, bedbound BIBA from home presents to the ED for a chief complaint of shortness of breath. Patient states he was told he has fluid build-up and was taking Lasix once every other day, but hasn't recently due to it giving me a reaction . He states he was seen at [facility] today and was given a medication, reporting he went home and developed shortness of breath. He states it worsens when he ambulates and moves around, so he came in for evaluation. He reports an associated runny nose. He denies any cough, fever, chills or any other associated symptoms. He denies any sick contacts. No known allergies. Related Data Home Medications ?Medication ?Instructions ?Recorded ?Confirmed esomeprazole magnesium 40 mg 40 mg QDAY 11/06/24 12/12/24 capsule,delayed release gemfibrozil 600 mg tablet 600 mg BID 11/06/24 12/12/24 hydralazine 100 mg tablet 100 mg PO TID 11/06/24 12/12/24 furosemide 40 mg tablet 40 mg PO EVERYOTHERDAY 12/12/24 12/12/24 metoprolol tartrate 100 mg tablet 100 mg PO BID 12/12/24 12/12/24 Previous Rx's ?Medication ?Instructions ?Recorded amlodipine 10 mg tablet 10 mg PO HS 1 month #30 tabs 11/09/24 atorvastatin 80 mg tablet 80 mg PO HS 1 month #30 tabs 11/09/24 blood-glucose sensor (FreeStyle #1 ea 11/09/24 Evangelista 3 Sensor device) Allergies Allergy/AdvReac Type Severity Reaction Status Date / Time No Known Allergies Allergy Verified 11/06/24 05:59 Review of Systems Review of Systems Systems Reviewed: All systems reviewed, normal except as documented Narrative Review of Systems: Gen: No fever, no chills, no weight loss EYES: No discharge, no visual changes, no pain HEENT: No ear pain, no congestion, no sore throat, + runny nose PULM: + shortness of breath, no cough, no congestion CV: No chest pain, no dyspnea on exertion, no palpitations GI: No nausea, no vomiting, no diarrhea, no pain, no constipation : No frequency, no urgency, no dysuria Musc/skel: No joint pain, no back pain Skin: No rash. Warm and dry. Psyc: No hallucinations, no depression Heme/Lymph: No easy bleeding or bruising tendencies Neuro: No weakness, no headache Past Medical History Past Medical History CARDIAC: Negative Congestive Heart Failure RESPIRATORY: Negative Chronic Obstructive Pulmonary Disease (COPD) GENITOURINARY: Negative Renal Disease ENDOCRINE: Negative Diabetes Mellitus Type 1 or Diabetes Mellitus Type 2 Social History SMOKING STATUS: Former smoker ED Exam Narrative Physical exam: GENERAL APPEARANCE: AxOx4, speaking full sentences, generally well-appearing, no acute distress. HEENT: NC, AT. MMM. EOMI, clear conjunctiva, oropharynx clear. NECK: Supple without lymphadenopathy. No stiffness or restricted ROM. HEART: Normal rate and regular rhythm, normal S1/S1, no m/r/g LUNGS: Diminished breath sounds. No crackles or wheezes are heard. ABDOMEN: Soft, nontender, nondistended with good bowel sounds heard. BACK: No midline C/T/L spine pain or deformity, No CVAT, no obvious deformity. EXTREMITIES: Without cyanosis, clubbing or edema. MUSCULOSKELETAL: FROM of all major joints, no chest tenderness NEUROLOGICAL: Grossly nonfocal. Alert and oriented, moving all 4 extremities. CN not formally tested but appear grossly intact. Observed to ambulate with normal gait. Skin: Warm and dry without any rash. Course Course Course Narrative: CXR is ordered for determining the etiology of shortness of breath. Quality Measures none Orders Category Date Time Status Admit to Inpatient Status Routine Admission 12/12/24 02:52 Active Patient Condition Routine Admission 12/12/24 02:51 Ordered Bedside COVID-19 Antigen Test NOW Care 12/12/24 02:10 Active Bedside Influenza A&B Antigen Test NOW Care 12/12/24 02:10 Completed EKG (ED ONLY) *Do not use* NOW Care 12/11/24 23:12 Completed Notify provider NEEDED Care 12/12/24 02:51 Active Obtain weight daily Care 12/12/24 02:53 Active Seizure precautions NEEDED Care 12/12/24 02:53 Active Diet Cardiac Diet 12/12/24 Breakfast Active EKG (ED Only) Stat Exams 12/11/24 23:12 Draft XR chest 1V Stat Exams 12/11/24 23:12 Completed Blood Culture (Lab) Stat Lab 12/12/24 00:58 Received CBC AM DRAW Lab 12/12/24 04:24 Completed CBC AM DRAW Lab 12/13/24 05:00 Ordered CBC AM DRAW Lab 12/14/24 05:00 Ordered CBC Stat Lab 12/11/24 23:29 Completed CMP [Comprehensive Metabolic Panel] Stat Lab 12/11/24 23:29 Completed Comprehensive Metabolic Panel AM DRAW Lab 12/12/24 04:24 Completed Comprehensive Metabolic Panel AM DRAW Lab 12/13/24 05:00 Ordered Comprehensive Metabolic Panel AM DRAW Lab 12/14/24 05:00 Ordered Lactate (Lactic Acid) Stat Lab 12/12/24 00:58 Completed Magnesium AM DRAW Lab 12/12/24 04:24 Completed Magnesium AM DRAW Lab 12/13/24 05:00 Ordered Magnesium AM DRAW Lab 12/14/24 05:00 Ordered Phosphorous AM DRAW Lab 12/13/24 05:00 Ordered Phosphorous AM DRAW Lab 12/14/24 05:00 Ordered Phosphorous AM DRAW Lab 12/15/24 05:00 Ordered Procalcitonin Stat Lab 12/12/24 00:58 Completed Troponin I Stat Lab 12/11/24 23:29 Completed ALBUTEROL RT 3ml [Proventil Rt 3ml] Med 12/11/24 23:12 Discontinued 2.5 mg INH X1 ONE Acetaminophen Tab [Tylenol Tab] Med 12/12/24 02:51 Active 650 mg PO Q6H PRN Ondansetron Inj [Zofran Inj] Med 12/12/24 02:51 Active 4 mg IV Q6H PRN Pantoprazole [Protonix] Med 12/12/24 09:00 Active 40 mg PO QDAY Senna [Senokot] Med 12/12/24 09:00 Active 1 tab PO QDAY Sodium Chloride 0.9% 500 ml [Ns] 500 ml Med 12/12/24 00:24 Discontinued IV 999 mls/hr cefTRIAXone/D5w 1gm IV premix [Rocephin/D5w 1gm IV Med 12/12/24 00:24 Discontinued premix] 50 ml IV X1 predniSONE Med 12/11/24 23:12 Discontinued 60 mg PO X1 ONE Code Status Routine Oth 12/12/24 02:51 Ordered O2 [Oxygen Delivery] PRN RT 12/12/24 00:45 Active Vital Signs Vital signs: Vital Signs Temperature 97.7 F 12/11/24 22:04 Pulse Rate 67 12/11/24 22:04 Respiratory Rate 18 12/11/24 22:04 Blood Pressure 132/75 H 12/11/24 22:04 Pulse Oximetry (%) 97 12/11/24 22:04 Oxygen Delivery Method Nasal Cannula 12/11/24 22:04 Oxygen Flow Rate 6 12/11/24 22:04 Shortness of Breath / Dyspnea MDM Narrative MDM Narrative:: Scribe Attestation: 12/11/24 - Elis Ellison am scribing for and in the presence of Dr. Andrade. Patient data External records reviewed:: [facility] previous records (Per chart review, patient was admitted here on 11/06/24 for acute renal failure.) Clinical information provided by:: patient Social determinants that could affect healthcare access:: none Patient has the following chronic illnesses:: HTN, kidney disease How is presenting disease/condition affected by chronic disease/condition?: uneffected by Evaluation data The following diagnostics were reviewed and interpreted by me:: lab results, radiology exam(s) and EKG tracing(s) Lab and/or radiology exams considered but not ordered:: none Interpretation Summary: WBC count is normal, HnH is 8.5/26.5, Potassium is elevated at 5.4, CO2 is low at 14.9, Creatinine is elevated at 4.1, BUN is elevated at 70, Glucose is 168, Anion Gap is normal, troponin is normal, Lactate is normal, EKG done at 2335, NSR, rate of 63, normal intervals, normal axis, no acute ST or T-wave changes, according to my interpretation. ------- [place] [facility] Report Signed Patient: SANAM HARPER Record#: [id number] Birthdate: 1960 Age/Sex: 64 / M Location: [facility] Attending Dr: Ordering Physician: Dariel Andrade MD Date of Service: 12/11/24 Procedure(s): XR chest 1V Accession Number(s): [id number] cc: Dariel Andrade MD; Harrison Kirkpatrick MD; Scout Helton MD~ Examination: AP chest single view Technique: AP portable semiupright chest single view Exam date and time: December 11, 2024 11:19 PM Comparison 08/07/2024 Indications: Shortness of breath today. Findings: Bilateral pneumonia, most prominent at the lung bases Mild enlargement cardiac contour with vascular congestion Moderate osteopenia Impression: Significant bilateral pneumonia Mild associated heart failure Dictated By: Harrison Kirkpatrick MD Signed By: <Electronically signed by Harrison Kirkpatrick MD in OV> 12/11/24 7599 Medications / Prescriptions Medications or Prescriptions considered but not ordered:: none Medication administrations:: Medication Administration History Acetaminophen (Acetaminophen 325 Mg Tablet) 650 mg PO Q6H PRN PRN Reason: Fever >100.3 or pain Stop: 01/11/25 02:50 Amlodipine Besylate (Amlodipine Besylate 5 Mg Tablet) 10 mg PO HS RAMSEY Stop: 01/11/25 20:59 Last Admin: 12/12/24 20:31 Dose: 10 mg Documented By: GILBERT Doxycycline Hyclate (Doxycycline 100 Mg Tablet) 100 mg PO BID RAMSEY Stop: 12/19/24 08:59 Last Admin: 12/12/24 20:31 Dose: 100 mg Documented By: Admin: 12/12/24 08:49 Dose: 100 mg Documented By: ANICETO Furosemide (Furosemide Inj 10 Mg/Ml 4ml Vial) 40 mg IVP BIDD RAMSEY Stop: 01/11/25 05:59 Last Admin: 12/12/24 16:59 Dose: 40 mg Documented By: Admin: 12/12/24 05:42 Dose: 40 mg Documented By: JUAN ALBERTO Heparin Sodium (Porcine) (Heparin Sod Inj 5000 Unit/Ml Vial) 5,000 unit SC BID RAMSEY Stop: 12/26/24 08:59 Last Admin: 12/12/24 20:31 Dose: 5,000 unit Documented By: GILBERT Co-signed By: KENROY Admin: 12/12/24 08:50 Dose: 5,000 unit Documented By: ANICETO Co-signed By: WILLIE Ceftriaxone Sodium/Dextrose (Rocephin/D5w 1gm Iv Premix) 50 mls @ 100 mls/hr IV QDAY RAMSEY Stop: 12/20/24 08:59 Methadone HCl (Methadone Hcl 10 Mg Tablet) 90 mg PO QDAY [facility] Stop: 12/13/24 09:01 Metoprolol Succinate (Metoprolol Succinate Xl 25 Mg Tabcr) 100 mg PO DAILY [facility] Stop: 01/11/25 08:59 Last Admin: 12/12/24 08:49 Dose: 100 mg Documented By: ANICETO Ondansetron HCl (Ondansetron Inj 2 Mg/Ml Inj 2 Ml) 4 mg IV Q6H PRN; Protocol PRN Reason: NAUSEA OR VOMITING Stop: 01/11/25 02:50 Pantoprazole Sodium (Pantoprazole 40 Mg Tablet) 40 mg PO QDAY [facility] Stop: 01/11/25 08:59 Last Admin: 12/12/24 08:50 Dose: 40 mg Documented By: ANICETO Patiromer (Patiromer Calcium 8.4 Gm Packet (Non-Form)) 8.4 gm PO HS [facility] Stop: 01/11/25 20:59 Last Admin: 12/12/24 22:24 Dose: 8.4 gm Documented By: GILBERT Sennosides (Senna Tablet) 1 tab PO QDAY [facility]; Protocol Stop: 01/11/25 08:59 Last Admin: 12/12/24 08:50 Dose: 1 tab Documented By: ANICETO Sevelamer Carbonate (Sevelamer Carbonate 800 Mg Tablet) 800 mg PO TIDWM [facility] Stop: 01/11/25 17:29 Last Admin: 12/12/24 16:59 Dose: 800 mg Documented By: ANICETO Discontinued Medications Albuterol (Albuterol Rt 2.5 Mg/3 Ml Nebu) 2.5 mg INH X1 ONE Stop: 12/11/24 23:13 Last Admin: 12/12/24 00:44 Dose: 2.5 mg Documented By: KENNY Calcium Acetate (Calcium Acetate 667 Mg Tablet) 667 mg PO TIDWM [facility] Stop: 01/11/25 07:59 Last Admin: 12/12/24 11:59 Dose: 667 mg Documented By: Admin: 12/12/24 08:55 Dose: 667 mg Documented By: ANICETO Calcium Chloride (Calcium Chloride 10% Inj 10 Ml Syrg) 10 ml IV X1 ONE Stop: 12/12/24 03:08 Dextrose (Dextrose 50%-Water Inj 50 Ml Syringe) 50 ml IV X1 ONE Stop: 12/12/24 07:51 Last Admin: 12/12/24 08:49 Dose: 50 ml Documented By: ANICETO Dextrose (Dextrose 50%-Water Inj 50 Ml Syringe) 50 ml IV X1 ONE Stop: 12/12/24 11:06 Last Admin: 12/12/24 11:59 Dose: 50 ml Documented By: ANICETO Sodium Chloride (Ns) 500 mls @ 999 mls/hr IV .Q31M ONE Stop: 12/12/24 00:54 Last Infusion: 12/12/24 01:58 Dose: Infused Documented By: Admin: 12/12/24 01:27 Dose: 999 mls/hr Documented By: JUAN ALBERTO Ceftriaxone Sodium/Dextrose (Rocephin/D5w 1gm Iv Premix) 50 mls @ 100 mls/hr IV X1 ONE Stop: 12/12/24 00:53 Last Infusion: 12/12/24 01:57 Dose: Infused Documented By: JUAN ALBERTO Admin: 12/12/24 01:27 Dose: 100 mls/hr Documented By: JUAN ALBERTO Calcium Gluconate/Sodium Chloride (Calcium Gluc/Ns 1000mg Ivpb) 1,000 mg in 50 mls @ 50 mls/hr IV X1 ONE Stop: 12/12/24 04:07 Last Infusion: 12/12/24 04:35 Dose: Infused Documented By: Admin: 12/12/24 03:35 Dose: 50 mls/hr Documented By: JUAN ALBERTO Insulin Human Regular (Insulin Hum Regular 1 Unit/0.01 Ml (Per Unit)) 5 unit IV X1 ONE Stop: 12/12/24 07:51 Last Admin: 12/12/24 08:49 Dose: 5 unit Documented By: ANICETO Co-signed By: WILLIE Insulin Human Regular (Insulin Hum Regular 1 Unit/0.01 Ml (Per Unit)) 5 unit IV X1 ONE Stop: 12/12/24 11:06 Last Admin: 12/12/24 11:57 Dose: 5 unit Documented By: ANICETO Co-signed By: WILLIE Methadone HCl (Methadone Hcl 10 Mg Tablet) 90 mg PO QDAY RAMSEY Stop: 12/12/24 09:01 Last Admin: 12/12/24 08:55 Dose: 90 mg Documented By: ANICETO Non-Formulary Medication (Veltassa) 8.4 g PO X1 ONE Stop: 12/12/24 03:01 Last Admin: 12/12/24 03:57 Dose: Not Given Documented By: JUAN ALBERTO Non-Admin Reason: Medication Not Available Patiromer (Patiromer Calcium 8.4 Gm Packet (Non-Form)) 8.4 gm PO QDAY [facility]SEY Stop: 01/11/25 15:34 Last Admin: 12/12/24 17:00 Dose: Not Given Documented By: ANICETO Non-Admin Reason: Discontinued Prednisone (Prednisone 20 Mg Tablet) 60 mg PO X1 ONE Stop: 12/11/24 23:13 Last Admin: 12/11/24 23:23 Dose: 60 mg Documented By: JUAN ALBERTO Sodium Bicarbonate (Sodium Bicarb Inj 8.4% 1 Meq/Ml Vial 50 Ml) 50 meq IV X1 ONE Stop: 12/12/24 03:12 Last Admin: 12/12/24 03:23 Dose: 50 meq Documented By: AC Sodium Bicarbonate (Sodium Bicarb Inj 8.4% 1 Meq/Ml Vial 50 Ml) 50 meq IV X1 ONE Stop: 12/12/24 03:13 Last Admin: 12/12/24 03:28 Dose: 50 meq Documented By: JUAN ALBERTO Sodium Chloride (Sodium Chloride Rt 10% 15 Ml Nebu) 5 ml INH X1 ONE Stop: 12/12/24 09:40 Sodium Polystyrene Sulfonate (Sod Polystyrene Sulfon Susp 15 Gm/60 Ml Btl) 30 gm PO X1 ONE Stop: 12/12/24 15:18 Last Admin: 12/12/24 16:59 Dose: 30 gm Documented By: ANICETO see above Consultations Consultation(s) initiated? (list below): Yes Consultation #1 (Physician, Specialty, Details): Discussed case with [the resident physician, attending Dr. Giles] from Hospitalist service regarding admission. Discussed patients ED course, exam findings, labs, and radiology results. The Hospitalist [agrees] to accept the patient for admission. Time: 02:11 Diagnosis Shortness of Breath Differential Diagnosis: other (pneumonia, bronchitis, dehydration, CHF exacerbation) Most likely diagnosis given after review of the tests above:: acute on chronic kidney injury, metabolic acidosis, bilateral pneumonia Admission Indicated Admission indicated?: indicated Admission Request Was there a request for admission?: Yes Admission Attestation Admission request attestation: Discussed case with [] from Hospitalist service regarding admission. Discussed patients ED course, exam findings, labs, and radiology results. The Hospitalist [agrees,declines] to accept the patient for admission. Disposition Plan Disposition Plan: Admit Discharge Plan Plan Patient Disposition: Admit Acute Care w/in Hospital Problem List Clinical Impression: [id number] kidney injury, Bilateral pneumonia, Metabolic acidosis
--- NOTE | 2024-12-11 23:12 | EKG_ITS ---
[facility] Test Date: 2024-12-11 Pat Name: SANAM HARPER Department: Room: - Gender: Male Manager Behavior: : 1960 Requested By: Dariel Andrade Order Number: [id number] Reading MD: Dariel Andrade Measurements Intervals [place] Rate: 63 P: 53 [place]: 212 QRS: 27 QRSD: 105 T: 54 QT: 438 QTc: 451 Interpretive Statements SINUS RHYTHM WITH FIRST DEGREE AV BLOCK Compared to ECG 11/06/2024 06:16:08 First degree AV block now present /store/[email or web address]/[id number]
[2024-12-11] MEDS: predniSONE 20 MG TABLET 60 MG PO (23:23)
[2024-12-11 23:35] LABS: Basophils # (Auto) 0.1 Thou/mm3 (0.0-0.2); Basophils % (Auto) 1 % (0-2.5); Eosinophils # (Auto) 0.3 Thou/mm3 (0.0-0.5); Eosinophils % (Auto) 4 % (0-10); Hematocrit 26.5 % (41.0-53.0); Immature Granulocytes % (Auto) 1 % (0-0); Immature Granulocytes Auto 0.04 Thou/mm3 (0.00-0.00); Lymphocytes # (Auto) 1.6 Thou/mm3 (1.0-4.8); Lymphocytes % (Auto) 20 % (10-50); Mean Corpuscular HGB Conc 32.1 g/dl (31.0-37.0); Mean Corpuscular Volume 94 fL (80-100); Monocytes # (Auto) 0.6 Thou/mm3 (0.0-0.8); Monocytes % (Auto) 7 % (0-12); Neutrophils # (Auto) 5.2 Thou/mm3 (1.8-7.7); Neutrophils % (Auto) 68 % (37-80); Nucleated Red Blood Cell % 0 /100 WBC (0); Platelet Count 159 Thou/mm3 (140-440); RDW Standard Deviation 53.4 fL (35.1-43.9); Red Blood Count 2.83 Miln/mm3 (4.50-5.90); White Blood Count 7.7 Thou/mm3 (3.8-10.6)
[2024-12-11 23:46] LABS: Hemoglobin 8.5 g/dL (13.5-16.0)
[2024-12-12] VITALS (20 sets, daily range): BP systolic 133–156; BP diastolic 72–84; PULSE 58–88; RESP 14–19; TEMP 36.4–37.1; O2SAT 95–100
[2024-12-12 00:03] LABS: Alanine Aminotransferase 13 U/L (10-49); Albumin/Globulin Ratio 1.1 (1.2-2.2); Alkaline Phosphatase 70 U/L (46-116); Anion Gap 13 (7-16); Aspartate Amino Transferase 22 U/L (0-34); BUN/Creatinine Ratio 17 Ratio (12-20); Bilirubin,Total 0.2 mg/dL (0.3-1.2); Blood Urea Nitrogen 70 mg/dL (9-23); Calcium 8.2 mg/dL (8.3-10.6); Calcium (Corrected) 8.2 mg/dL (8.5-10.1); Chloride 108 mMol/L (98-107); Creatinine (Component) 4.1 mg/dL (0.6-1.3); Estimated Creatinine Clearance 24.9 mL/min (>60); Globulin 3.7 gm/dL (2.3-3.5); Glucose 168 mg/dL (74-106); Osmolality,Calculated 296 (275-295); Potassium 5.4 mMol/L (3.4-5.1); Sodium 136 mMol/L (136-145); Total Protein 7.7 gm/dL (5.7-8.2); Troponin I 0.024 ng/mL (0.0-0.045); eGFR 16 See Note
[2024-12-12 00:24] LABS: Carbon Dioxide 14.9 mMol/L (20.0-31.0)
[2024-12-12] MEDS: ALBUTEROL RT 2.5 MG/3 ML NEBU INH (00:44)
[2024-12-12 01:12] LABS: Lactate (Lactic Acid) 0.5 mMol/L (0.4-2.0)
[2024-12-12] MEDS: cefTRIAXone/D5w 1gm IV premix 50 ML IV (01:27)
[2024-12-12] MEDS: SODIUM CHLORIDE 0.9% 500 ML 500 ML 999 ML IV (01:27)
[2024-12-12 01:42] LABS: Procalcitonin 0.14 ng/ml (0.0-0.49)
--- NOTE | 2024-12-12 02:57 | PD.RESHP ---
Documentation for date of: 12/12/24 HPI History of Present Illness Chief complaint: Worsening SOB History of present illness: HPI: Patient is a 64-year-old male with a past medical history significant for essential hypertension, HFpEF [55 to 60%] CKD stage IV, dla-qaofkdn-fytptglly diabetes mellitus type 2, hyperlipidemia, GERD and history of opioid addiction on methadone following antibiotic clinic in [place] since 2005 presenting today with a chief complaint of progressively worsening shortness of breath. Patient states that he is SOB at baseline but over the past 2 days this has acutely worsened. He endorses shortness of breath on minimal movement. Also endorses a 2 pillow orthopnea and PND. Patient has chronic lower extremity edema and uncertain of it it is worsened. Denies any chest pain/pressure, palpitations, headaches, cough, vomiting, fevers or recent travel. Patient says he has a sick contact of his grandson. Of note patient had a recent hospitalization 2 weeks ago at [facility] for the same complaint of shortness of breath. Patient said he was treated for fluid in his lungs and his pneumonia. Patient also had a recent hospitalization at [facility] from 11/06/2024 during 11/09/2024 and was treated for acute respiratory failure with hypoxia secondary to pulmonary edema from HFpEF versus MIAN. Patient said that he is on methadone 90 Mg p.o. daily since 2005 for his heroin addiction. He has used IV heroin a few times since then but last use was years ago according to him. ED course: BP 133/74, pulse 64, RR 15, temp 97.6 F, SpO2 98% on 2L via NC. Labs significant for Hb 8.5, HCT 26.5, CL 108, bicarb 14.9, BUN 70, CR 4.1, corrected Ca 8.2, Pro-Miguel 0.14. EKG significant for sinus rhythm, rate 63, first-degree AV block. No acute ST changes. Chest x-ray significant for bilateral pulmonary edema worse right lower lobe, increased vascular markings bilaterally. Patient received prednisone 60 Mg p.o. x 1, albuterol nebs x 1 ,500 cc normal saline bolus and ceftriaxone 1 g IV x 1 in the ED. Patient will be admitted for treatment and management of worsening SOB secondary to pulmonary edema. Review of Systems Review of Systems Narrative Review of Systems: GENERAL: Denies fever/chills or diaphoresis. HEENT: Denies headaches or visual changes. Denies discharge. Neuro: Denies unusual weakness or difficulty speaking. CARDIO: As above PULM: As above GI: Denies abdominal pain, N/V/C/D. Reports having BMs. URO: Denies buring/itching/pain/urinary changes. MSK/EXT/SKIN: Denies joint/skeletal/muscle pain, issues/changes in upper or lower extremities, itchiness, or superficial pain. PSYCH: Cooperative, pleasant mood & affect. The rest of the review of systems is otherwise negative. Past Medical History Past Medical History Comments PMH COMMENT: PMH: essential hypertension, previous heroin use and on methadone, Hyperlipidemia, NIDDM, COVID-pneumonia in 2020 with residual lower body weakness and dyspepsia Surgical Hx: Left great toe amputation Social Hx: Admits to heroin use and currently on methadone as well, admits alcohol socially, past smoker pack per day for 20+ years and quit 10 years ago. Patient is wheelchair bound at baseline FMH: Father has hypertension and half sibling had a heart attack Exam Vital Signs Temp Pulse Resp BP Pulse Ox O2 Del Method O2 Flow Rate 97.6 F 64 15 133/74 H 98 Nasal Cannula 2 12/12/24 02:00 12/12/24 02:00 12/12/24 02:00 12/12/24 02:00 12/12/24 02:00 12/12/24 02:00 12/12/24 02:00 Narrative Exam Constitutional Alert, oriented x 3 and comfortable. Elderly male on O2 via NC HEENT Vision grossly intact. Patent nares. Trachea midline Respiratory Chest normal on inspection and reduced air entry bilaterally with crackles at bases. Cardiovascular S1 and S2 audible, RRR. No murmurs carotid bruit. No gross JVD. Abdominal Soft, obese and non tender to palpation in all quadrants. BS +. Negative for sacral edema Genitourinary No bladder tenderness, no flank pain. Normal to palpation. negative for scrotal edema Musculoskeletal Extremities tone within normal limits. 3+ pitting lower extremity edema up to hips bilaterally Neurological CN II - XII grossly intact. Extremity motor and sensation grossly intact. Skin Warm, dry and intact. Lipodystrophy surrounding umbilicus as well as purpura. Left great toe amputation Psychiatric Patient has good affect, is cooperative Results: Labs 12/12/24 04:24 12/12/24 04:24 Labs: Short CBC 12/11/24 Range/Units 23:29 WBC 7.7 (3.8-10.6) Thou/mm3 Hgb 8.5 L (13.5-16.0) g/dL Hct 26.5 L (41.0-53.0) % Plt Count 159 (140-440) Thou/mm3 BMP 12/11/24 23:29 Sodium 136 Potassium 5.4 H Chloride 108 H Carbon Dioxide 14.9 L* BUN 70 H Creatinine 4.1 H* Glucose 168 H Calcium 8.2 L Cardiac Enzymes 12/11/24 Range/Units 23:29 Troponin I 0.024 (0.0-0.045) ng/mL Liver Function 12/11/24 Range/Units 23:29 Total Bilirubin 0.2 L (0.3-1.2) mg/dL AST 22 (0-34) U/L ALT 13 (10-49) U/L Alkaline Phosphatase 70 (46-116) U/L Albumin 4.0 (3.4-4.8) gm/dL Quality Measures Quality Measures none Medications Home Medications and Allergies Home Medications ?Medication ?Instructions ?Recorded ?Confirmed ?Type esomeprazole magnesium 40 mg 40 mg QDAY 11/06/24 12/12/24 History capsule,delayed release gemfibrozil 600 mg tablet 600 mg BID 11/06/24 12/12/24 History hydralazine 100 mg tablet 100 mg PO TID 11/06/24 12/12/24 History furosemide 40 mg tablet 40 mg PO EVERYOTHERDAY 12/12/24 12/12/24 History metoprolol tartrate 100 mg tablet 100 mg PO BID 12/12/24 12/12/24 History Allergies Allergy/AdvReac Type Severity Reaction Status Date / Time No Known Allergies Allergy Verified 11/06/24 05:59 Visit Medications Acetaminophen (Acetaminophen 325 Mg Tablet) 650 mg PO Q6H PRN PRN Reason: Fever >100.3 or pain Stop: 01/11/25 02:50 Heparin Sodium (Porcine) (Heparin Sod Inj 5000 Unit/Ml Vial) 5,000 unit SC BID RAMSEY Stop: 12/26/24 02:59 Ondansetron HCl (Ondansetron Inj 2 Mg/Ml Inj 2 Ml) 4 mg IV Q6H PRN; Protocol PRN Reason: NAUSEA OR VOMITING Stop: 01/11/25 02:50 Pantoprazole Sodium (Pantoprazole 40 Mg Tablet) 40 mg PO QDAY RAMSEY Stop: 01/11/25 08:59 Sennosides (Senna Tablet) 1 tab PO QDAY RAMSEY; Protocol Stop: 01/11/25 08:59 Discontinued Medications Albuterol (Albuterol Rt 2.5 Mg/3 Ml Nebu) 2.5 mg INH X1 ONE Stop: 12/11/24 23:13 Last Admin: 12/12/24 00:44 Dose: 2.5 mg Sodium Chloride (Ns) 500 mls @ 999 mls/hr IV .Q31M ONE Stop: 12/12/24 00:54 Last Infusion: 12/12/24 01:58 Dose: Infused Ceftriaxone Sodium/Dextrose (Rocephin/D5w 1gm Iv Premix) 50 mls @ 100 mls/hr IV X1 ONE Stop: 12/12/24 00:53 Last Infusion: 12/12/24 01:57 Dose: Infused Prednisone (Prednisone 20 Mg Tablet) 60 mg PO X1 ONE Stop: 12/11/24 23:13 Last Admin: 12/11/24 23:23 Dose: 60 mg Assessment & Plan Plan Patient is a 64-year-old male with a past medical history significant for essential hypertension, HFpEF [55 to 60%] CKD stage IV, tlb-jbypnfq-dudfsilpz diabetes mellitus type 2, hyperlipidemia, GERD and history of opioid addiction on methadone following antibiotic clinic in [place] since 2005 presenting today with a chief complaint of progressively worsening shortness of breath. Patient will be admitted for treatment and management of worsening SOB secondary to pulmonary edema. 1. Worsening SOB 2. Pulmonary edema secondary to MIAN on CKD versus acute decompensated chronic diastolic congestive heart failure exacerbation Patient says that he is short of breath at baseline and anything more than minimal exertion exacerbates this. However over the past 2 days his condition acutely worsens. On exam patient has decreased air entry on auscultation and bibasilar crackles. On imaging chest x-ray significant for bilateral pulmonary edema worse on the right. Labs significant for BUN 70 and CR 4.1 Plan: ? Lasix 40 Mg IV twice daily 3. Acute kidney injury on CKD stage IV At baseline patient is CKD stage IV with CR between 3.7?3.8. On admission patient's BUN and CR 70, 4.1 During 2019 patient was hospitalized with COVID and had 3 dialysis sessions but was subsequently taken off of dialysis. During last hospitalization he was referred to fitness studies teacher, Dr. Hutchinson but unsure if patient ever followed up. Plan: ? Avoid nephrotoxic agents ? Renally dose medication ? Judicious use of fluids ? Staking Engineer, Dr. Hutchinson consulted and closely following the case. Appreciate recommendations 4. Acute decompensated chronic diastolic congestive heart failure exacerbation [55-60%] Patient says that he is short of breath at baseline and anything more than minimal exertion exacerbates this. However over the past 2 days his condition acutely worsens. On exam patient has decreased air entry on auscultation and bibasilar crackles. On imaging chest x-ray significant for bilateral pulmonary edema worse on the right. NYHA class D stage IV Home medication furosemide 40 Mg p.o. every other day and metoprolol tartrate 100 Mg p.o. twice daily. Transthoracic echocardiogram completed on 11/06/2024 findings include: Normal LV size and function. Mild LVH. Stage I diastolic dysfunction. Estimated EF 55-60% Mild RV dilatation. Normal RV function. Trace MR, TR. Mild AV sclerosis without stenosis. Possible epicardial fat pad near the RA or trace pericardial effusion. Plan: ? Strict input output charting ? Daily weights ? 2 g sodium restricted diet ? 1500 cc fluid restriction per day ? Lasix 40 Mg IV twice daily 5. Hyperkalemia 6. Hypocalcemia 7. Hyper chloremia 8. NAGMA On admission K5.4, bicarb 14.9, CL 108, corrected Ca 8.2 DDx: RTA type IV, CKD, medication side effect Plan: ? Calcium gluconate 1 ampoule IV x 1 ? Calcium acetate 667 g p.o. 3 times daily with meals ? Veltassa 8.7 g p.o. x 1 for hyperkalemia 9. Essential hypertension 10. Hyperlipidemia On admission BP 133/74. Home medication hydralazine 100 Mg p.o. 3 times daily and metoprolol tartrate 100 Mg p.o. twice daily. Plan: ? Hydralazine on hold for now to give blood pressure extra room for diuresis if necessary. ? Resumed home medication metoprolol XL 100 Mg daily 11. Hrh-gzuneom-wsnczoogp diabetes mellitus type 2 Last HbA1c 4.8. Patient currently not on any medication for diabetes Patient endorses blood sugars between 112/120s from his CGM monitor. No medication necessary at this point, will monitor blood glucose. 12. History of heroin abuse currently on methadone Home dose methadone 90 Mg p.o. daily Plan: ? Resume home medication methadone 90 Mg p.o. daily 13. GERD Home medication esomeprazole 40 Mg p.o. daily Plan: ?Started patient on pantoprazole 40 mg po daily Health maintenance: Disposition: IV diuresis. Nephro Consult Diet: Cardiac, renal Lines: pIVs GI Prophylaxis: Pantoprazole Thrombo Prophylaxis: Heparin Code status: FULL CODE Plan of care discussed with Attending Dr. Chan Raymond MD PGY 1 Attending Provider Attestation/Addendum Face to face evaluation was performed by me. I have personally seen and examined the patient. I discussed the assessment and plan with the entire medicine team. I reviewed available medical records, imaging studies, laboratory results. I agree with the above subjective data, objective findings, assessment and plan except as corrected by me or noted below MIAN on suspected CKD Pulmonary edema SOB due to above Chronic opioid dependance syndrome on methadone , follows with [facility] in [facility] essential Mild hyperkalemia - treat hyperKa, avoid nephrotoxic agents, Lasix IV, no fever/leyukocytosis or cough- do not suspect clinically significant PNA- no abxs from us. Nephrology can be consulted in AM. patient was here 1 month ago with sob and CKD as well. Looks like he had few sessions of HD in the past
[2024-12-12] MEDS: SODIUM BICARB INJ 8.4% 1 mEq/ML VIAL 50 ML 50 MEQ IV ×2 (03:23→03:28)
[2024-12-12] MEDS: CALCIUM GLUC/NS 1000MG IVPB 1,000 MG/50 ML BAG 50 MG IV (03:35)
[2024-12-12 03:40] LABS: Base Excess -5 (-3-3); HCO3 22 mEq/L (20-26); Inspired Oxygen, FIO2 21 %; O2 Saturation 96 % (91-98); PCO2 45 mmHg (32.0-48.0); PO2 74 mmHg (83-108)
[2024-12-12 03:41] LABS: Allen Test Performed/OK; Puncture Site Left Radial
[2024-12-12 05:06] LABS: Basophils % (Auto) 0 % (0-2.5); Eosinophils % (Auto) 0 % (0-10); Hematocrit 24.9 % (41.0-53.0); Immature Granulocytes % (Auto) 1 % (0-0); Immature Granulocytes Auto 0.04 Thou/mm3 (0.00-0.00); Lymphocytes # (Auto) 0.6 Thou/mm3 (1.0-4.8); Lymphocytes % (Auto) 10 % (10-50); Mean Corpuscular HGB Conc 31.7 g/dl (31.0-37.0); Mean Corpuscular Hemoglobin 29.7 pg (25.0-35.0); Mean Corpuscular Volume 94 fL (80-100); Monocytes # (Auto) 0.1 Thou/mm3 (0.0-0.8); Monocytes % (Auto) 2 % (0-12); Neutrophils % (Auto) 87 % (37-80); Nucleated Red Blood Cell % 0 /100 WBC (0); Platelet Count 152 Thou/mm3 (140-440); RDW Standard Deviation 52.2 fL (35.1-43.9); Red Blood Count 2.66 Miln/mm3 (4.50-5.90); White Blood Count 5.8 Thou/mm3 (3.8-10.6)
[2024-12-12 05:10] LABS: Hemoglobin 7.9 g/dL (13.5-16.0)
[2024-12-12 05:15] LABS: Amphetamine/Methamp Scrn,U Negative (Negative); Barbiturate Screen,Urine Negative (Negative); Benzodiazepines Screen,Urine Negative (Negative); Benzoylecgonine Screen, Ur Negative (Negative); Fentanyl Screen,Urine Negative (Negative); Opiate Screen,Urine Negative (Negative); THC Screen,Urine Negative (Negative)
[2024-12-12 05:26] LABS: Alanine Aminotransferase 12 U/L (10-49); Albumin, Serum 3.9 gm/dL (3.4-4.8); Albumin/Globulin Ratio 1.1 (1.2-2.2); Alkaline Phosphatase 67 U/L (46-116); Anion Gap 10 (7-16); Aspartate Amino Transferase 17 U/L (0-34); BUN/Creatinine Ratio 21 Ratio (12-20); Bilirubin,Total 0.2 mg/dL (0.3-1.2); Blood Urea Nitrogen 85 mg/dL (9-23); Calcium 8.4 mg/dL (8.3-10.6); Calcium (Corrected) 8.5 mg/dL (8.5-10.1); Carbon Dioxide 21.7 mMol/L (20.0-31.0); Chloride 107 mMol/L (98-107); Estimated Creatinine Clearance 25.5 mL/min (>60); Globulin 3.6 gm/dL (2.3-3.5); Glucose 127 mg/dL (74-106); Magnesium 2.8 mg/dL (1.6-2.6); Osmolality,Calculated 305 (275-295); Potassium 5.7 mMol/L (3.4-5.1); Sodium 139 mMol/L (136-145); Total Protein 7.5 gm/dL (5.7-8.2); eGFR 16 See Note
[2024-12-12 05:29] LABS: B-Type Natriuretic Peptide 781 pg/mL (0-100)
[2024-12-12] MEDS: FUROSEMIDE INJ 10 MG/ML 4ML VIAL 40 MG IVP ×2 (05:42→16:59)
[2024-12-12] MEDS: INSULIN HUM REGULAR 1 UNIT/0.01 ML (PER UNIT) 5 UNIT IV ×2 (08:49→11:57)
[2024-12-12] MEDS: DOXYCYCLINE 100 MG TABLET PO ×2 (08:49→20:31)
[2024-12-12] MEDS: METOPROLOL SUCCINATE XL 25 MG TABCR 100 MG PO (08:49)
[2024-12-12] MEDS: DEXTROSE 50%-WATER INJ 50 ML SYRINGE IV ×2 (08:49→11:59)
[2024-12-12] MEDS: HEPARIN SOD INJ 5000 UNIT/ML VIAL SC ×2 (08:50→20:31)
[2024-12-12] MEDS: PANTOPRAZOLE 40 MG TABLET PO (08:50)
[2024-12-12] MEDS: SENNA TABLET 1 TAB PO (08:50)
[2024-12-12] MEDS: CALCIUM ACETATE 667 MG TABLET PO ×2 (08:55→11:59)
[2024-12-12] MEDS: METHADONE HCL 10 MG TABLET 90 MG PO (08:55)
--- NOTE | 2024-12-12 10:51 | ESPR_ITS ---
<Statement entered by Kemal Rucker MD - 12/15/24 12:21> I reviewed above note and agree with findings and plans. I have also personally examined the patient with medicine team and went over assessment and plan with medical team including internal salesperson and resident physician. Documentation for date of: 12/12/24 Subjective Subjective Interval history: Patient was seen at bedside this morning. No overnight events. Patient is currently on 2 L of O2 via nasal cannula and saturating well. Shortness of breath has improved and he states that he has no chest pain. No other complaints at this time.Total insulin regular IV 10 units given along with 2 amp of D50 and repeat renal panel at 1pm for hyperkalemia. Exam Vital Signs Temp Pulse Resp BP Pulse Ox O2 Del Method O2 Flow Rate 97.7 F 76 18 156/84 H 95 Nasal Cannula 2 12/12/24 09:00 12/12/24 09:00 12/12/24 09:00 12/12/24 09:00 12/12/24 09:00 12/12/24 09:00 12/12/24 09:00 Narrative Exam General: A/O x3, no acute distress Eyes: PERRL, EOMI. Anicteric, vision grossly intact. Ears: No ear pain, no ear discharge, Hearing grossly intact. Nose: No nasal discharge. Mouth/Throat: Moist mucous membranes, no redness, no lesions. Neck: Neck supple, non-tender, no cervical lymphadenopathy. Lungs: Clear LINO upper lobes and mild crackles in lower lobes, No accessory muscle use. Cardio: Normal S1/S2, regular rhythm, no murmurs, no JVD Abdomen: Soft, non-tender, no palpable masses, peristalsis present, no guarding or rebound. Extremities: Symmetrical, no significant deformities, 2+ edema upto lower back , non-tender, peripheral pulses presents. Skin: No rashes, no lesions, warm to touch. Neuro: No focal neurological deficits. motor and sensory intact Objective Labs 12/12/24 04:24 12/12/24 20:30 Labs: Laboratory Results - last 24 hr 12/11/24 12/12/24 12/12/24 23:29 00:58 03:36 WBC 7.7 RBC 2.83 L Hgb 8.5 L Hct 26.5 L MCV 94 MCH 30.0 MCHC 32.1 RDW Std Deviation 53.4 H Plt Count 159 Neut % (Auto) 68 Lymph % (Auto) 20 Moca % (Auto) 7 Eos % (Auto) 4 Baso % (Auto) 1 Neut # (Auto) 5.2 Lymph # (Auto) 1.6 Moca # (Auto) 0.6 Eos # (Auto) 0.3 Baso # (Auto) 0.1 Immature Gran # (Auto) 0.04 H Absolute Nucleated RBC 0.00 Immature Gran % 1 H Nucleated RBC % 0 Puncture Site Left Radial ABG pH 7.30 L ABG pCO2 45 ABG pO2 74 L ABG HCO3 22 ABG O2 Saturation 96 ABG Base Excess -5 L FiO2 21 Sodium 136 Potassium 5.4 H Chloride 108 H Carbon Dioxide 14.9 L* Anion Gap 13 BUN 70 H Creatinine 4.1 H* Estim Creat Clear Calc 24.9 L eGFR 16 L BUN/Creatinine Ratio 17 Glucose 168 H Calculated Osmolality 296 H Lactic Acid 0.5 Calcium 8.2 L Corrected Calcium 8.2 L Magnesium Total Bilirubin 0.2 L AST 22 ALT 13 Alkaline Phosphatase 70 Troponin I 0.024 B-Natriuretic Peptide Total Protein 7.7 Albumin 4.0 Globulin 3.7 H Albumin/Globulin Ratio 1.1 L Procalcitonin 0.14 Urine Opiates Screen Urine Fentanyl Screen Ur Barbiturates Screen U Amphetamin/Meth Scrn U Benzodiazepines Scrn U Cocaine Metab Screen U Marijuana (THC) Screen 12/12/24 12/12/24 04:24 04:50 WBC 5.8 RBC 2.66 L Hgb 7.9 L Hct 24.9 L MCV 94 MCH 29.7 MCHC 31.7 RDW Std Deviation 52.2 H Plt Count 152 Neut % (Auto) 87 H Lymph % (Auto) 10 Moca % (Auto) 2 Eos % (Auto) 0 Baso % (Auto) 0 Neut # (Auto) 5.0 Lymph # (Auto) 0.6 L Moca # (Auto) 0.1 Eos # (Auto) 0.0 Baso # (Auto) 0.0 Immature Gran # (Auto) 0.04 H Absolute Nucleated RBC 0.00 Immature Gran % 1 H Nucleated RBC % 0 Puncture Site ABG pH ABG pCO2 ABG pO2 ABG HCO3 ABG O2 Saturation ABG Base Excess FiO2 Sodium 139 Potassium 5.7 H Chloride 107 Carbon Dioxide 21.7 Anion Gap 10 BUN 85 H Creatinine 4.0 H Estim Creat Clear Calc 25.5 L eGFR 16 L BUN/Creatinine Ratio 21 H Glucose 127 H Calculated Osmolality 305 H Lactic Acid Calcium 8.4 Corrected Calcium 8.5 Magnesium 2.8 H Total Bilirubin 0.2 L AST 17 ALT 12 Alkaline Phosphatase 67 Troponin I B-Natriuretic Peptide 781 H* Total Protein 7.5 Albumin 3.9 Globulin 3.6 H Albumin/Globulin Ratio 1.1 L Procalcitonin Urine Opiates Screen Negative Urine Fentanyl Screen Negative Ur Barbiturates Screen Negative U Amphetamin/Meth Scrn Negative U Benzodiazepines Scrn Negative U Cocaine Metab Screen Negative U Marijuana (THC) Screen Negative ABG Interpretation ABG results: 12/12/24 03:36 ABG pH 7.30 L ABG pCO2 45 ABG pO2 74 L ABG HCO3 22 ABG O2 Saturation 96 ABG Base Excess -5 L Quality Measures Quality Measures none Assessment & Plan Assessment Current Active Medications: Generic Name Dose Route Start Last Admin Trade Name Freq PRN Reason Stop Dose Admin Acetaminophen 650 mg 12/12/24 02:51 Acetaminophen 325 Mg Tablet PO 01/11/25 02:50 Q6H PRN Fever >100.3 or pain Calcium Acetate 667 mg 12/12/24 08:00 12/12/24 08:55 Calcium Acetate 667 Mg Tablet PO 01/11/25 07:59 667 mg TIDWM RAMSEY Administration Doxycycline Hyclate 100 mg 12/12/24 09:00 12/12/24 08:49 Doxycycline 100 Mg Tablet PO 12/19/24 08:59 100 mg BID RAMSEY Administration Furosemide 40 mg 12/12/24 06:00 12/12/24 05:42 Furosemide Inj 10 Mg/Ml 4ml Vial IVP 01/11/25 05:59 40 mg BIDD RAMSEY Administration Heparin Sodium (Porcine) 5,000 unit 12/12/24 09:00 12/12/24 08:50 Heparin Sod Inj 5000 Unit/Ml Vial SC 12/26/24 08:59 5,000 unit BID RAMSEY Administration Ceftriaxone Sodium/Dextrose 50 mls @ 100 mls/hr 12/13/24 09:00 Rocephin/D5w 1gm Iv Premix IV 12/20/24 08:59 QDAY RAMSEY Methadone HCl 90 mg 12/13/24 09:00 Methadone Hcl 10 Mg Tablet PO 12/13/24 09:01 QDAY RAMSEY Metoprolol Succinate 100 mg 12/12/24 09:00 12/12/24 08:49 Metoprolol Succinate Xl 25 Mg Tabcr PO 01/11/25 08:59 100 mg DAILY RAMSEY Administration Ondansetron HCl 4 mg 12/12/24 02:51 Ondansetron Inj 2 Mg/Ml Inj 2 Ml IV 01/11/25 02:50 Q6H PRN NAUSEA OR VOMITING Protocol Pantoprazole Sodium 40 mg 12/12/24 09:00 12/12/24 08:50 Pantoprazole 40 Mg Tablet PO 01/11/25 08:59 40 mg QDAY RAMSEY Administration Sennosides 1 tab 12/12/24 09:00 12/12/24 08:50 Senna Tablet PO 01/11/25 08:59 1 tab QDAY RAMSEY Administration Protocol Plan 64-year-old wheelchair bound male with past medical history of HFpEF (EF 55 to 60% 10/2024), essential hypertension, Hx of heroin use and on methadone, hyperlipidemia, IDDM, COVID-pneumonia in 2019 with residual lower body weakness and dyspepsia was admitted to the hospital on 12/12/2024 due to acute hypoxic respiratory failure likely in the setting of acute decompensated heart failure exacerbation versus community-acquired pneumonia versus hospital-acquired pneumonia. #Acute hypoxic respiratory failure likely secondary to #Acute on chronic diastolic congestive heart failure exacerbation (EF 55 to 60% on 10/2024) #Dyspnea ?Patient came in due to increased shortness of breath for the last few days. He indicates that he cannot walk short distances that he gets very short of breath ? Lower extremity edema noted upto lower back ? BNP 781 ?Chest x-ray showed heart failure pattern ?Echo on 11/06/2024 showed EF of 55 to 60% and stage I diastolic dysfunction. ?Patient had total balance of +600 mL Plan: ? Continue furosemide 40 mg twice daily ? Restart patient's metoprolol 100 mg daily ? Strict LILIAN's ? Daily weights ? O2 administration as needed ?Will continue to monitor #Community-acquired pneumonia versus hospital-acquired pneumonia ? Patient was recently discharged from our hospital on 11/09/2024 due to similar symptoms ? Patient also stated that he went to [facility] and was treated for pneumonia. ? Chest x-ray did show bilateral pneumonia ? PSI/port score of 143 points, risk class V indicating 27 to 29.2% mortality and hospitalization recommended Plan: ? Start Rocephin and doxycycline [12/12/2024?] ?Blood cultures and sputum cultures ordered ?Will continue to monitor #MIAN on CKD stage IV ? Patient came in with creatinine of 4.1 ? Baseline creatinine around 3.7 ? Follows up with safety tech outpatient, but unsure which one ? Cr today 4 Plan: ? Avoid nephrotoxic agents ? Renally dose medications ?Cardiology consulted, pressure recommendations ? Will continue to monitor #Electrolyte imbalance #Hyperkalemia #Hyperchloremia, resolved #Hypocalcemia, resolved #Hypermagnesemia #NAGMA ?Patient came in initially with potassium of 5.4, chloride 108, calcium 8.2 ?Likely RTA ?Bicarb initially was 14.9 ?Potassium today is 5.7, chloride 107, bicarb 21.7, calcium 8.5, and magnesium 2.8 ?Repeat renal function panel showed potassium 5.3, chloride 107, bicarb 19.7, magnesium 2.8, and phosphorus 5.7 ? EKG did not show any T wave abnormalities. Plan: ?Total insulin regular IV 10 units given along with 2 amp of D50 ? Repeat renal panel at 1 PM ?Will replete other electrolytes as needed #Hx of IDDM ?A1c on 11/07/2024 was 4.8 Plan: ? Will monitor blood sugars for now ?Will start insulin sliding scale if patient's blood sugars become elevated ? Carb consistent low diet #Hx of hypertension ?Patient blood pressure has been elevated since admission and currently on 156/84 Plan: ? Continue metoprolol 100 mg daily ?Restart patient's amlodipine 10 mg p.o. at bedtime #Hx of hyperlipidemia We will restart patient's atorvastatin 80 at bedtime #Hx of heroin use currently on methadone ?Restarted patient's methadone Disposition: Patient admitted to telemetry for AHRF 2/2 CHF exacerbation vs CAP vs HAP. Diet: Cardiac, renal, carb low GI prophylaxis: protonix DVT prophylaxis: heparin sc Code: Full code Case disclosed with Attending Dr. Rucker and My senior Dr. Edwards PGY2. Shashi Perez PGY1 Senior Resident Attestation: The patient is a 70-year-old male with significant past medical history of HFpEF 55 to 60%, essential hypertension, heroin abuse disorder on methadone, hyperlipidemia, IDDM type II, presented with chief complaint of generalized body weakness and dyspepsia was admitted to the hospital on 12/12/2024 and was found to have acute hypoxic respiratory failure more likely secondary to volume overload in the setting of MIAN on stage IV CKD with oliguria. This morning he reported his shortness of breath has been improving. He was saturating 93 to 94% on 2 L NC. His labs are significant for hemoglobin of 7.9, potassium of 5.7, and chloride 109. His creatinine trended up to 4.1. Phosphorus 6.2 and magnesium 2.8. 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 His potassium and chloride has been high. The patient was given 2 doses of IV regular insulin 5 units, 50 cc D50W, and later received 30 g of Kayexalate finally decreasing potassium level to 4.7. Senior Clinical Data Coordinator Dr. Hutchinson has been consulted. He recommended Lokelma, but that was not available. So we will continue the patient on Veltassa 8.4 g daily and as needed Kayexalate. Will continue to monitor renal panel. We will also continue the patient on IV Lasix 40 Mg twice daily, ceftriaxone and doxycycline. We are awaiting blood culture. We will narrow down antibiotics depending on blood culture results. I discussed with and supervised the internal salesperson physician involved in the care of this patient. I personally saw and examined the patient and discussed the assessment and plan with the entire medicine team, including my attending. I agree with the assessment and plan as documented above. Brandon Edwards MD PGY2 Internal Medicine
[2024-12-12 10:52] LABS: Albumin, Serum 3.9 gm/dL (3.4-4.8); Anion Gap 12 (7-16); BUN/Creatinine Ratio 22 Ratio (12-20); Blood Urea Nitrogen 88 mg/dL (9-23); Calcium 8.3 mg/dL (8.3-10.6); Calcium (Corrected) 8.4 mg/dL (8.5-10.1); Carbon Dioxide 19.7 mMol/L (20.0-31.0); Chloride 107 mMol/L (98-107); Estimated Creatinine Clearance 25.9 mL/min (>60); Glucose 147 mg/dL (74-106); Osmolality,Calculated 307 (275-295); Phosphorous 5.7 mg/dL (2.4-5.1); Potassium 5.3 mMol/L (3.4-5.1); Sodium 139 mMol/L (136-145); eGFR 16 See Note
[2024-12-12 14:39] LABS: Anion Gap 11 (7-16); BUN/Creatinine Ratio 22 Ratio (12-20); Blood Urea Nitrogen 89 mg/dL (9-23); Calcium 8.3 mg/dL (8.3-10.6); Calcium (Corrected) 8.3 mg/dL (8.5-10.1); Carbon Dioxide 20.9 mMol/L (20.0-31.0); Chloride 108 mMol/L (98-107); Creatinine (Component) 4.1 mg/dL (0.6-1.3); Estimated Creatinine Clearance 25.3 mL/min (>60); Glucose 167 mg/dL (74-106); Osmolality,Calculated 310 (275-295); Phosphorous 6.2 mg/dL (2.4-5.1); Potassium 5.4 mMol/L (3.4-5.1); Sodium 140 mMol/L (136-145); eGFR 16 See Note
--- NOTE | 2024-12-12 14:50 | PC.RT ---
placed cup at bed side for sputum sample pt stated he had no phlegm
--- NOTE | 2024-12-12 15:35 | EKG_ITS ---
[facility] Test Date: 2024-12-12 Pat Name: SANAM HARPER [facility] Infant Lead Teacher: ALIS : [id number] Requested By: Shashi Perez Order Number: [id number] Reading MD: Shashi Perez Measurements Intervals [place] Rate: 70 P: 72 TN: 196 QRS: 10 QRSD: 103 T: 38 QT: 412 QTc: 446 Interpretive Statements SINUS RHYTHM Compared to ECG 12/11/2024 23:35:24 First degree AV block no longer present /store/S0/[id number]
[2024-12-12] MEDS: SEVELAMER CARBONATE 800 MG TABLET PO (16:59)
[2024-12-12] MEDS: SOD POLYSTYRENE SULFON SUSP 15 GM/60 ML BTL 30 GM PO (16:59)
[2024-12-12] MEDS: amLODIPine BESYLATE 5 MG TABLET 10 MG PO (20:31)
[2024-12-12 21:05] LABS: Anion Gap 11 (7-16); BUN/Creatinine Ratio 20 Ratio (12-20); Blood Urea Nitrogen 87 mg/dL (9-23); Calcium 8.4 mg/dL (8.3-10.6); Carbon Dioxide 20.6 mMol/L (20.0-31.0); Chloride 109 mMol/L (98-107); Creatinine (Component) 4.4 mg/dL (0.6-1.3); Estimated Creatinine Clearance 23.5 mL/min (>60); Glucose 106 mg/dL (74-106); Osmolality,Calculated 307 (275-295); Potassium 4.7 mMol/L (3.4-5.1); Sodium 141 mMol/L (136-145); eGFR 14 See Note
[2024-12-12] MEDS: PATIROMER CALCIUM 8.4 GM PACKET (NON-FORM) PO (22:24)
[2024-12-13] VITALS (14 sets, daily range): BP systolic 123–145; BP diastolic 64–97; PULSE 55–80; RESP 16–99; TEMP 35.9–36.4; O2SAT 94–99
[2024-12-13] MEDS: FUROSEMIDE INJ 10 MG/ML 4ML VIAL 40 MG IVP (05:31)
[2024-12-13 06:28] LABS: Basophils # (Auto) 0.1 Thou/mm3 (0.0-0.2); Basophils % (Auto) 1 % (0-2.5); Eosinophils # (Auto) 0.2 Thou/mm3 (0.0-0.5); Eosinophils % (Auto) 2 % (0-10); Hematocrit 24.9 % (41.0-53.0); Immature Granulocytes % (Auto) 1 % (0-0); Immature Granulocytes Auto 0.05 Thou/mm3 (0.00-0.00); Lymphocytes # (Auto) 1.9 Thou/mm3 (1.0-4.8); Lymphocytes % (Auto) 28 % (10-50); Mean Corpuscular HGB Conc 31.3 g/dl (31.0-37.0); Mean Corpuscular Hemoglobin 29.5 pg (25.0-35.0); Mean Corpuscular Volume 94 fL (80-100); Monocytes # (Auto) 0.7 Thou/mm3 (0.0-0.8); Monocytes % (Auto) 9 % (0-12); Neutrophils # (Auto) 4.1 Thou/mm3 (1.8-7.7); Neutrophils % (Auto) 59 % (37-80); Nucleated Red Blood Cell % 0 /100 WBC (0); Platelet Count 157 Thou/mm3 (140-440); RDW Standard Deviation 51.6 fL (35.1-43.9); Red Blood Count 2.64 Miln/mm3 (4.50-5.90)
[2024-12-13 06:31] LABS: Hemoglobin 7.8 g/dL (13.5-16.0)
[2024-12-13 06:47] LABS: INR 1.1 (0.9-1.3); Partial Thromboplastin Time 31.3 Seconds (22.0-36.0); Prothrombin Time 11.7 Seconds (9.0-12.2)
[2024-12-13 06:55] LABS: Alanine Aminotransferase 13 U/L (10-49); Albumin, Serum 3.8 gm/dL (3.4-4.8); Albumin/Globulin Ratio 1.1 (1.2-2.2); Alkaline Phosphatase 62 U/L (46-116); Anion Gap 13 (7-16); Aspartate Amino Transferase 18 U/L (0-34); BUN/Creatinine Ratio 21 Ratio (12-20); Bilirubin,Total 0.2 mg/dL (0.3-1.2); Blood Urea Nitrogen 90 mg/dL (9-23); Calcium 8.3 mg/dL (8.3-10.6); Calcium (Corrected) 8.5 mg/dL (8.5-10.1); Carbon Dioxide 21.2 mMol/L (20.0-31.0); Chloride 107 mMol/L (98-107); Creatinine (Component) 4.3 mg/dL (0.6-1.3); Estimated Creatinine Clearance 24.2 mL/min (>60); Globulin 3.4 gm/dL (2.3-3.5); Glucose 78 mg/dL (74-106); Magnesium 2.6 mg/dL (1.6-2.6); Osmolality,Calculated 307 (275-295); Phosphorous 5.7 mg/dL (2.4-5.1); Potassium 4.3 mMol/L (3.4-5.1); Sodium 141 mMol/L (136-145); Total Protein 7.2 gm/dL (5.7-8.2); eGFR 15 See Note
[2024-12-13] MEDS: METOPROLOL SUCCINATE XL 25 MG TABCR 100 MG PO (08:26)
[2024-12-13] MEDS: PANTOPRAZOLE 40 MG TABLET PO (08:26)
[2024-12-13] MEDS: SEVELAMER CARBONATE 800 MG TABLET PO ×3 (08:26→17:03)
[2024-12-13] MEDS: METHADONE HCL 10 MG TABLET 90 MG PO (08:27)
[2024-12-13] MEDS: HEPARIN SOD INJ 5000 UNIT/ML VIAL SC ×2 (08:27→20:47)
[2024-12-13] MEDS: cefTRIAXone/D5w 1gm IV premix 50 ML IV (08:27)
[2024-12-13] MEDS: DOXYCYCLINE 100 MG TABLET PO ×2 (08:27→20:46)
--- NOTE | 2024-12-13 11:42 | ESPR_ITS ---
<Statement entered by Kemal Rucker MD - 12/18/24 15:04> I reviewed above note and agree with findings and plans. I have also personally examined the patient with medicine team and went over assessment and plan with medical team including integrated marketing intern and resident physician. Documentation for date of: 12/13/24 Subjective Subjective Interval history: Patient was seen at bedside this morning. No overnight events. Patient had total balance of -1 L in the past 24 hours. His kidney function continues to worsen and is currently creatinine 4.3 and BUN 90. Patient's potassium today was 4.3 and phosphorus 5.7. There is still some noticeable swelling up to lower back and abdomen. No other complaints at this time. Will switch from Lasix 40 twice daily to Bumex 1 mg twice daily. Exam Vital Signs Temp Pulse Resp BP Pulse Ox O2 Del Method O2 Flow Rate 96.7 F L 69 16 126/75 99 Nasal Cannula 2 12/13/24 07:59 12/13/24 09:05 12/13/24 09:05 12/13/24 08:26 12/13/24 07:59 12/13/24 07:59 12/13/24 09:05 Narrative Exam General: A/O x3, no acute distress Eyes: PERRL, EOMI. Anicteric, vision grossly intact. Ears: No ear pain, no ear discharge, Hearing grossly intact. Nose: No nasal discharge. Mouth/Throat: Moist mucous membranes, no redness, no lesions. Neck: Neck supple, non-tender, no cervical lymphadenopathy. Lungs: Clear LINO upper lobes and mild crackles in lower lobes, No accessory muscle use. Cardio: Normal S1/S2, regular rhythm, no murmurs, no JVD Abdomen: Soft, non-tender, no palpable masses, peristalsis present, no guarding or rebound. Extremities: Symmetrical, no significant deformities, 2+ edema upto lower back/abdomen , non-tender, peripheral pulses presents. Skin: No rashes, no lesions, warm to touch. Neuro: No focal neurological deficits. motor and sensory intact Objective Labs 12/13/24 05:10 12/13/24 05:10 Labs: Laboratory Results - last 24 hr 12/12/24 12/12/24 12/13/24 14:08 20:30 05:10 WBC 7.0 RBC 2.64 L Hgb 7.8 L Hct 24.9 L MCV 94 MCH 29.5 MCHC 31.3 RDW Std Deviation 51.6 H Plt Count 157 Neut % (Auto) 59 Lymph % (Auto) 28 [place] % (Auto) 9 Eos % (Auto) 2 Baso % (Auto) 1 Neut # (Auto) 4.1 Lymph # (Auto) 1.9 [place] # (Auto) 0.7 Eos # (Auto) 0.2 Baso # (Auto) 0.1 Immature Gran # (Auto) 0.05 H Absolute Nucleated RBC 0.00 Immature Gran % 1 H Nucleated RBC % 0 PT 11.7 INR 1.1 APTT 31.3 Sodium 140 141 141 Potassium 5.4 H 4.7 D 4.3 Chloride 108 H 109 H 107 Carbon Dioxide 20.9 20.6 21.2 Anion Gap 11 11 13 BUN 89 H 87 H 90 H Creatinine 4.1 H* 4.4 H* 4.3 H* Estim Creat Clear Calc 25.3 L 23.5 L 24.2 L eGFR 16 L 14 L* 15 L BUN/Creatinine Ratio 22 H 20 21 H Glucose 167 H 106 D 78 Calculated Osmolality 310 H 307 H 307 H Calcium 8.3 8.4 8.3 Corrected Calcium 8.3 L 8.5 Phosphorus 6.2 H 5.7 H Magnesium 2.6 Total Bilirubin 0.2 L AST 18 ALT 13 Alkaline Phosphatase 62 Total Protein 7.2 Albumin 4.0 3.8 Globulin 3.4 Albumin/Globulin Ratio 1.1 L ABG Interpretation ABG results: 12/12/24 03:36 ABG pH 7.30 L ABG pCO2 45 ABG pO2 74 L ABG HCO3 22 ABG O2 Saturation 96 ABG Base Excess -5 L Quality Measures Quality Measures none Assessment & Plan Assessment Current Active Medications: Generic Name Dose Route Start Last Admin Trade Name Freq PRN Reason Stop Dose Admin Acetaminophen 650 mg 12/12/24 02:51 Acetaminophen 325 Mg Tablet PO 01/11/25 02:50 Q6H PRN Fever >100.3 or pain Amlodipine Besylate 10 mg 12/12/24 21:00 12/12/24 20:31 Amlodipine Besylate 5 Mg Tablet PO 01/11/25 20:59 10 mg HS RAMSEY Administration Bumetanide 1 mg 12/13/24 21:00 Bumetanide Inj 0.25 Mg/Ml Vial 4 Ml IVP 02/18/25 20:59 BID RAMSEY Doxycycline Hyclate 100 mg 12/12/24 09:00 12/13/24 08:27 Doxycycline 100 Mg Tablet PO 12/19/24 08:59 100 mg BID RAMSEY Administration Heparin Sodium (Porcine) 5,000 unit 12/12/24 09:00 12/13/24 08:27 Heparin Sod Inj 5000 Unit/Ml Vial SC 12/26/24 08:59 5,000 unit BID RAMSEY Administration Ceftriaxone Sodium/Dextrose 50 mls @ 100 mls/hr 12/13/24 09:00 12/13/24 08:27 Rocephin/D5w 1gm Iv Premix IV 12/20/24 08:59 100 mls/hr QDAY RAMSEY Administration Methadone HCl 90 mg 12/13/24 09:00 Methadone Hcl 10 Mg Tablet PO 12/13/24 09:01 QDAY RAMSEY Metoprolol Succinate 100 mg 12/12/24 09:00 12/13/24 08:26 Metoprolol Succinate Xl 25 Mg Tabcr PO 01/11/25 08:59 100 mg DAILY RAMSEY Administration Ondansetron HCl 4 mg 12/12/24 02:51 Ondansetron Inj 2 Mg/Ml Inj 2 Ml IV 01/11/25 02:50 Q6H PRN NAUSEA OR VOMITING Protocol Pantoprazole Sodium 40 mg 12/12/24 09:00 12/13/24 08:26 Pantoprazole 40 Mg Tablet PO 01/11/25 08:59 40 mg QDAY RAMSEY Administration Patiromer 8.4 gm 12/12/24 21:00 12/12/24 22:24 Patiromer Calcium 8.4 Gm Packet (Non-Form) PO 01/11/25 20:59 8.4 gm HS RAMSEY Administration Sennosides 1 tab 12/12/24 09:00 12/13/24 08:48 Senna Tablet PO 01/11/25 08:59 Not Given QDAY RAMSEY Protocol Sevelamer Carbonate 800 mg 12/12/24 17:30 12/13/24 08:26 Sevelamer Carbonate 800 Mg Tablet PO 01/11/25 17:29 800 mg TIDWM RAMSEY Administration Plan 64-year-old wheelchair bound male with past medical history of HFpEF (EF 55 to 60% 10/2024), essential hypertension, Hx of heroin use and on methadone, hyperlipidemia, IDDM, COVID-pneumonia in 2020 with residual lower body weakness and dyspepsia was admitted to the hospital on 12/12/2024 due to acute hypoxic respiratory failure likely in the setting of acute decompensated heart failure exacerbation versus community-acquired pneumonia versus hospital-acquired pneumonia. #Acute hypoxic respiratory failure likely secondary to #Acute on chronic diastolic congestive heart failure exacerbation (EF 55 to 60% on 10/2024) #Dyspnea ?Patient came in due to increased shortness of breath for the last few days. He indicates that he cannot walk short distances that he gets very short of breath ? Lower extremity edema noted upto lower back ? BNP 781 ?Chest x-ray showed heart failure pattern ?Echo on 11/06/2024 showed EF of 55 to 60% and stage I diastolic dysfunction. ?Patient had total balance of +600 mL Plan: ? Start Bumex 1 mg twice daily ? Continue patient's metoprolol 100 mg daily ? Strict LILIAN's ? Daily weights ? O2 administration as needed ?Will continue to monitor #Community-acquired pneumonia versus hospital-acquired pneumonia ? Patient was recently discharged from our hospital on 11/09/2024 due to similar symptoms ? Patient also stated that he went to [facility] and was treated for pneumonia. ? Chest x-ray did show bilateral pneumonia ? PSI/port score of 143 points, risk class V indicating 27 to 29.2% mortality and hospitalization recommended ?Blood cultures negative the first 24 hours Plan: ? Continue Rocephin and doxycycline [12/12/2024?] ?Blood cultures and sputum cultures ordered ?Will continue to monitor #MIAN on CKD stage IV ? Patient came in with creatinine of 4.1 ? Baseline creatinine around 3.7 ? Follows up with [facility] outpatient, but unsure which one ? Cr today 4.3 Plan: ? Avoid nephrotoxic agents ? Renally dose medications ?Cardiology consulted, pressure recommendations ? Will continue to monitor #Electrolyte imbalance #Hyperkalemia #Hyperchloremia, resolved #Hypocalcemia, resolved #Hypermagnesemia. #Hyperphosphatemia #NAGMA ?Patient came in initially with potassium of 5.4, chloride 108, calcium 8.2 ?Likely RTA ?Bicarb initially was 14.9 ?Potassium today is 5.7, chloride 107, bicarb 21.7, calcium 8.5, and magnesium 2.8 ?Repeat renal function panel showed potassium 5.3, chloride 107, bicarb 19.7, magnesium 2.8, and phosphorus 5.7 ? EKG did not show any T wave abnormalities. ?Potassium 4.3, chloride 107, bicarb 21.2, phosphorus 5.7, and calcium 8.5 Plan: ?Will replete other electrolytes as needed #Hx of IDDM ?A1c on 11/07/2024 was 4.8 Plan: ? Will monitor blood sugars for now ?Will start insulin sliding scale if patient's blood sugars become elevated ? Carb consistent low diet #Hx of hypertension ?Patient blood pressure has been elevated since admission Plan: ? Continue metoprolol 100 mg daily ?Continue patient's amlodipine 10 mg p.o. at bedtime #Hx of hyperlipidemia -Continue patient's atorvastatin 80 at bedtime #Hx of heroin use currently on methadone ?Continue patient's methadone Disposition: Patient seen in telemetry continue Abx and Bumex 1mg BID Diet: Cardiac, renal, carb low GI prophylaxis: protonix DVT prophylaxis: heparin sc Code: Full code Case disclosed with Attending Dr. Chaim Perez PGY1
--- NOTE | 2024-12-13 19:25 | PD.NEPHCONS ---
History of Present Illness Data of Consult Requesting Physician: Antonino Giles MD Primary Care Provider: Scout Helton MD Consult Narrative History of present illness: 64-year-old male with a past medical history significant for essential hypertension, HFpEF, CKD , [id number] diabetes mellitus type 2, hyperlipidemia, GERD and history of opioid addiction on methadone following antibiotic clinic in [place] since 2005 presenting today with a chief complaint of progressively worsening shortness of breath. Nephrology consulted for CKD care. Kidney function worsening. Advised dialysis. Risks and benefits are arranged. cc:: cc: Antonino Giles MD Review of Systems Review of Systems Systems Reviewed: All systems reviewed, normal except as documented Meds Home Medications and Allergies Home Medications ?Medication ?Instructions ?Recorded ?Confirmed ?Type esomeprazole magnesium 40 mg 40 mg QDAY 11/06/24 12/12/24 History capsule,delayed release gemfibrozil 600 mg tablet 600 mg BID 11/06/24 12/12/24 History hydralazine 100 mg tablet 100 mg PO TID 11/06/24 12/12/24 History furosemide 40 mg tablet 40 mg PO EVERYOTHERDAY 12/12/24 12/12/24 History metoprolol tartrate 100 mg tablet 100 mg PO BID 12/12/24 12/12/24 History Allergies Allergy/AdvReac Type Severity Reaction Status Date / Time No Known Allergies Allergy Verified 11/06/24 05:59 Exam Vital Signs Temp Pulse Resp BP Pulse Ox O2 Del Method O2 Flow Rate 97.0 F 65 19 136/65 H 97 Room Air 2 12/13/24 16:00 12/13/24 16:00 12/13/24 16:00 12/13/24 16:00 12/13/24 16:00 12/13/24 16:00 12/13/24 09:05 Narrative Exam General: no new complaints Heart: s1, s2 Chest ivanna crackles ext ivanna edema Results Labs 12/14/24 05:43 12/14/24 05:43 Labs: Short CBC 12/13/24 Range/Units 05:10 WBC 7.0 (3.8-10.6) Thou/mm3 Hgb 7.8 L (13.5-16.0) g/dL Hct 24.9 L (41.0-53.0) % Plt Count 157 (140-440) Thou/mm3 BMP 12/12/24 12/13/24 20:30 05:10 Sodium 141 141 Potassium 4.7 D 4.3 Chloride 109 H 107 Carbon Dioxide 20.6 21.2 BUN 87 H 90 H Creatinine 4.4 H* 4.3 H* Glucose 106 D 78 Calcium 8.4 8.3 Liver Function 12/13/24 Range/Units 05:10 Total Bilirubin 0.2 L (0.3-1.2) mg/dL AST 18 (0-34) U/L ALT 13 (10-49) U/L Alkaline Phosphatase 62 (46-116) U/L Albumin 3.8 (3.4-4.8) gm/dL ABG Interpretation ABG results: 12/12/24 03:36 ABG pH 7.30 L ABG pCO2 45 ABG pO2 74 L ABG HCO3 22 ABG O2 Saturation 96 ABG Base Excess -5 L Assessment & Plan Assessment and plan (1) ESRD (end stage renal disease): Status: Acute Assessment and plan: Kidney function worsening advised HD Pt had TDC placed set up out pt dialysis will do HD tomorrow Pt consented for HD (2) Metabolic acidosis: Status: Acute (3) Acute respiratory failure with hypoxia: Status: Acute
[2024-12-13] MEDS: BUMETANIDE INJ 0.25 MG/ML VIAL 4 ML 1 MG IVP (20:45)
[2024-12-13] MEDS: amLODIPine BESYLATE 5 MG TABLET 10 MG PO (20:45)
[2024-12-13] MEDS: PATIROMER CALCIUM 8.4 GM PACKET (NON-FORM) PO (20:46)
[2024-12-14] VITALS (19 sets, daily range): BP systolic 136–182; BP diastolic 70–94; PULSE 55–78; RESP 12–22; TEMP 36.1–36.6; O2SAT 94–99
[2024-12-14 06:09] LABS: Basophils # (Auto) 0.1 Thou/mm3 (0.0-0.2); Basophils % (Auto) 1 % (0-2.5); Eosinophils # (Auto) 0.5 Thou/mm3 (0.0-0.5); Eosinophils % (Auto) 5 % (0-10); Hematocrit 26.6 % (41.0-53.0); Immature Granulocytes % (Auto) 1 % (0-0); Immature Granulocytes Auto 0.05 Thou/mm3 (0.00-0.00); Lymphocytes # (Auto) 3.5 Thou/mm3 (1.0-4.8); Lymphocytes % (Auto) 39 % (10-50); Mean Corpuscular HGB Conc 30.8 g/dl (31.0-37.0); Mean Corpuscular Hemoglobin 29.3 pg (25.0-35.0); Mean Corpuscular Volume 95 fL (80-100); Monocytes # (Auto) 0.7 Thou/mm3 (0.0-0.8); Monocytes % (Auto) 8 % (0-12); Neutrophils # (Auto) 4.1 Thou/mm3 (1.8-7.7); Neutrophils % (Auto) 47 % (37-80); Nucleated Red Blood Cell % 0 /100 WBC (0); Platelet Count 169 Thou/mm3 (140-440); RDW Standard Deviation 52.4 fL (35.1-43.9); White Blood Count 8.8 Thou/mm3 (3.8-10.6)
[2024-12-14 06:11] LABS: Hemoglobin 8.2 g/dL (13.5-16.0)
[2024-12-14 06:32] LABS: Alanine Aminotransferase 16 U/L (10-49); Albumin, Serum 3.9 gm/dL (3.4-4.8); Albumin/Globulin Ratio 1.1 (1.2-2.2); Alkaline Phosphatase 62 U/L (46-116); Anion Gap 12 (7-16); Aspartate Amino Transferase 23 U/L (0-34); BUN/Creatinine Ratio 20 Ratio (12-20); Bilirubin,Total 0.2 mg/dL (0.3-1.2); Blood Urea Nitrogen 93 mg/dL (9-23); Calcium 8.2 mg/dL (8.3-10.6); Calcium (Corrected) 8.3 mg/dL (8.5-10.1); Carbon Dioxide 20.2 mMol/L (20.0-31.0); Chloride 105 mMol/L (98-107); Creatinine (Component) 4.6 mg/dL (0.6-1.3); Estimated Creatinine Clearance 22.6 mL/min (>60); Globulin 3.6 gm/dL (2.3-3.5); Glucose 82 mg/dL (74-106); Magnesium 2.4 mg/dL (1.6-2.6); Osmolality,Calculated 301 (275-295); Phosphorous 6.1 mg/dL (2.4-5.1); Sodium 137 mMol/L (136-145); Total Protein 7.5 gm/dL (5.7-8.2); eGFR 14 See Note
[2024-12-14] MEDS: SEVELAMER CARBONATE 800 MG TABLET 1600 MG PO ×3 (08:01→16:51)
[2024-12-14] MEDS: BUMETANIDE INJ 0.25 MG/ML VIAL 4 ML 1 MG IVP (08:02)
[2024-12-14] MEDS: cefTRIAXone/D5w 1gm IV premix 50 ML IV (08:05)
[2024-12-14] MEDS: METHADONE HCL 10 MG TABLET 90 MG PO (08:07)
[2024-12-14] MEDS: PANTOPRAZOLE 40 MG TABLET PO (08:10)
[2024-12-14] MEDS: DOXYCYCLINE 100 MG TABLET PO ×2 (08:10→20:09)
[2024-12-14] MEDS: METOPROLOL SUCCINATE XL 25 MG TABCR 100 MG PO (08:10)
[2024-12-14] MEDS: SENNA TABLET 1 TAB PO (08:10)
[2024-12-14] MEDS: HEPARIN SOD INJ 5000 UNIT/ML VIAL SC ×2 (08:11→20:09)
--- NOTE | 2024-12-14 10:47 | PC.SS ---
Patient is alert/oriented. He resides with family. His alt medical decision maker is his significant other, Benito. Patient states he needs assistance w/all ADL's. Patient is already open to the [facility]. This program provides transportation and PT services. Patient already has a wheelchair, hospital bed, 3:1 shower chair. Patient follows with [facility] M/F's. Patient follows with Dr. Melton @ [facility] and last appt was last week. Patient has transportation upon discharge. Patient will return home. d/c plan: home alt medical decision maker: Dairy Management Specialist, benito,
[2024-12-14 11:19] LABS: Hepatitis A Antibody IgM Non Reactive (Non React); Hepatitis B Core Antibody IgM Non Reactive (Non React); Hepatitis B Surface Antigen Non Reactive (Non React); Hepatitis C Antibody Reactive (Non React)
--- NOTE | 2024-12-14 11:57 | ESPR_ITS ---
<Statement entered by Kemal Rucker MD - 12/20/24 16:26> I reviewed above note and agree with findings and plans. I have also personally examined the patient with medicine team and went over assessment and plan with medical team including international nurse and resident physician. Documentation for date of: 12/14/24 Subjective Subjective Interval history: Patient seen at bedside this morning. No overnight events. Patient kidney function continue to worsen with creatinine 4.6 and BUN 93 today. Contacted category specialist who stated to stop diuretics at this time and that patient will need hemodialysis. Will stop diuretics for now and ordered tunneled dialysis cath insertion by IR. No other complaints at this time. Exam Vital Signs Temp Pulse Resp BP Pulse Ox O2 Del Method O2 Flow Rate 96.9 F 60 15 154/81 H 99 Room Air 2 12/14/24 08:00 12/14/24 08:10 12/14/24 08:00 12/14/24 08:10 12/14/24 08:00 12/14/24 08:00 12/13/24 19:35 Narrative Exam General: A/O x3, no acute distress Eyes: PERRL, EOMI. Anicteric, vision grossly intact. Ears: No ear pain, no ear discharge, Hearing grossly intact. Nose: No nasal discharge. Mouth/Throat: Moist mucous membranes, no redness, no lesions. Neck: Neck supple, non-tender, no cervical lymphadenopathy. Lungs: Clear LINO upper lobes and mild crackles in lower lobes, No accessory muscle use. Cardio: Normal S1/S2, regular rhythm, no murmurs, no JVD Abdomen: Soft, non-tender, no palpable masses, peristalsis present, no guarding or rebound. Extremities: Symmetrical, no significant deformities, 2+ edema upto lower back/abdomen , non-tender, peripheral pulses presents. Skin: No rashes, no lesions, warm to touch. Neuro: No focal neurological deficits. motor and sensory intact Objective Labs 12/14/24 05:43 12/14/24 05:43 Labs: Laboratory Results - last 24 hr 12/14/24 05:43 WBC 8.8 RBC 2.80 L Hgb 8.2 L Hct 26.6 L MCV 95 MCH 29.3 MCHC 30.8 L RDW Std Deviation 52.4 H Plt Count 169 Neut % (Auto) 47 Lymph % (Auto) 39 [place] % (Auto) 8 Eos % (Auto) 5 Baso % (Auto) 1 Neut # (Auto) 4.1 Lymph # (Auto) 3.5 [place] # (Auto) 0.7 Eos # (Auto) 0.5 Baso # (Auto) 0.1 Immature Gran # (Auto) 0.05 H Absolute Nucleated RBC 0.00 Immature Gran % 1 H Nucleated RBC % 0 Sodium 137 Potassium 4.0 Chloride 105 Carbon Dioxide 20.2 Anion Gap 12 BUN 93 H Creatinine 4.6 H* Estim Creat Clear Calc 22.6 L eGFR 14 L* BUN/Creatinine Ratio 20 Glucose 82 Calculated Osmolality 301 H Calcium 8.2 L Corrected Calcium 8.3 L Phosphorus 6.1 H Magnesium 2.4 Total Bilirubin 0.2 L AST 23 ALT 16 Alkaline Phosphatase 62 Total Protein 7.5 Albumin 3.9 Globulin 3.6 H Albumin/Globulin Ratio 1.1 L Hepatitis A IgM Ab Non Reactive Hep Bs Antigen Non Reactive Hep B Core IgM Ab Non Reactive Hepatitis C Antibody Reactive A ABG Interpretation ABG results: 12/12/24 03:36 ABG pH 7.30 L ABG pCO2 45 ABG pO2 74 L ABG HCO3 22 ABG O2 Saturation 96 ABG Base Excess -5 L Quality Measures Quality Measures none Assessment & Plan Assessment Current Active Medications: Generic Name Dose Route Start Last Admin Trade Name Freq PRN Reason Stop Dose Admin Acetaminophen 650 mg 12/12/24 02:51 Acetaminophen 325 Mg Tablet PO 01/11/25 02:50 Q6H PRN Fever >100.3 or pain Amlodipine Besylate 10 mg 12/12/24 21:00 12/13/24 20:45 Amlodipine Besylate 5 Mg Tablet PO 01/11/25 20:59 10 mg HS RAMSEY Administration Doxycycline Hyclate 100 mg 12/12/24 09:00 12/14/24 08:10 Doxycycline 100 Mg Tablet PO 12/19/24 08:59 100 mg BID RAMSEY Administration Heparin Sodium (Porcine) 5,000 unit 12/12/24 09:00 12/14/24 08:11 Heparin Sod Inj 5000 Unit/Ml Vial SC 12/26/24 08:59 5,000 unit BID RAMSEY Administration Ceftriaxone Sodium/Dextrose 50 mls @ 100 mls/hr 12/13/24 09:00 12/14/24 08:05 Rocephin/D5w 1gm Iv Premix IV 12/20/24 08:59 100 mls/hr QDAY RAMSEY Administration Methadone HCl 90 mg 12/15/24 09:00 Methadone Hcl 10 Mg Tablet PO 12/20/24 08:59 QDAY RAMSEY Metoprolol Succinate 100 mg 12/12/24 09:00 12/14/24 08:10 Metoprolol Succinate Xl 25 Mg Tabcr PO 01/11/25 08:59 100 mg DAILY RAMSEY Administration Ondansetron HCl 4 mg 12/12/24 02:51 Ondansetron Inj 2 Mg/Ml Inj 2 Ml IV 01/11/25 02:50 Q6H PRN NAUSEA OR VOMITING Protocol Pantoprazole Sodium 40 mg 12/12/24 09:00 12/14/24 08:10 Pantoprazole 40 Mg Tablet PO 01/11/25 08:59 40 mg QDAY RAMSEY Administration Patiromer 8.4 gm 12/12/24 21:00 12/13/24 20:46 Patiromer Calcium 8.4 Gm Packet (Non-Form) PO 01/11/25 20:59 8.4 gm HS RAMSEY Administration Sennosides 1 tab 12/12/24 09:00 12/14/24 08:10 Senna Tablet PO 01/11/25 08:59 1 tab QDAY RAMSEY Administration Protocol Sevelamer Carbonate 1,600 mg 12/14/24 08:00 12/14/24 08:01 Sevelamer Carbonate 800 Mg Tablet PO 01/13/25 07:59 1,600 mg TIDWM RAMSEY Administration Plan 64-year-old wheelchair bound male with past medical history of HFpEF (EF 55 to 60% 10/2024), essential hypertension, Hx of heroin use and on methadone, hyperlipidemia, IDDM, COVID-pneumonia in 2019 with residual lower body weakness and dyspepsia was admitted to the hospital on 12/12/2024 due to acute hypoxic respiratory failure likely in the setting of acute decompensated heart failure exacerbation versus community-acquired pneumonia versus hospital-acquired pneumonia. #Acute hypoxic respiratory failure likely secondary to #Acute on chronic diastolic congestive heart failure exacerbation (EF 55 to 60% on 10/2024) #Dyspnea ?Patient came in due to increased shortness of breath for the last few days. He indicates that he cannot walk short distances that he gets very short of breath ? Lower extremity edema noted upto lower back ? BNP 781 ?Chest x-ray showed heart failure pattern ?Echo on 11/06/2024 showed EF of 55 to 60% and stage I diastolic dysfunction. ?Patient had total balance of -670 mL Plan: ? Disocntinued Bumex 1 mg twice daily ? Continue patient's metoprolol 100 mg daily ? Strict LILIAN's ? Daily weights ? O2 administration as needed ?Will continue to monitor #Community-acquired pneumonia versus hospital-acquired pneumonia ? Patient was recently discharged from our hospital on 11/09/2024 due to similar symptoms ? Patient also stated that he went to [facility] and was treated for pneumonia. ? Chest x-ray did show bilateral pneumonia ? PSI/port score of 143 points, risk class V indicating 27 to 29.2% mortality and hospitalization recommended ?Blood cultures negative Plan: ? Continue Rocephin and doxycycline [12/12/2024?] ?Will continue to monitor #MIAN on CKD stage IV ? Patient came in with creatinine of 4.1 ? Baseline creatinine around 3.7 ? Follows up with category specialist outpatient, but unsure which one ? Cr today 4.6 Plan: -Hold diuresis for now -Pending HD cath insertion ? Avoid nephrotoxic agents ? Renally dose medications ?Cardiology consulted, pressure recommendations ? Will continue to monitor #Electrolyte imbalance #Hyperkalemia #Hyperchloremia, resolved #Hypocalcemia, resolved #Hypermagnesemia. #Hyperphosphatemia #NAGMA ?Patient came in initially with potassium of 5.4, chloride 108, calcium 8.2 ?Likely RTA ?Bicarb initially was 14.9 ?Potassium today is 5.7, chloride 107, bicarb 21.7, calcium 8.5, and magnesium 2.8 ?Repeat renal function panel showed potassium 5.3, chloride 107, bicarb 19.7, magnesium 2.8, and phosphorus 5.7 ? EKG did not show any T wave abnormalities. ?Potassium 4, chloride 105, bicarb 20.2, phosphorus 6.1, and calcium 8.3 today Plan: ?Will replete other electrolytes as needed #Hx of IDDM ?A1c on 11/07/2024 was 4.8 Plan: ? Will monitor blood sugars for now ?Will start insulin sliding scale if patient's blood sugars become elevated ? Carb consistent low diet #Hx of hypertension ?Patient blood pressure has been elevated since admission Plan: ? Continue metoprolol 100 mg daily ?Continue patient's amlodipine 10 mg p.o. at bedtime #Hx of hyperlipidemia -Continue patient's atorvastatin 80 at bedtime #Hx of heroin use currently on methadone ?Continue patient's methadone Disposition: Patient seen in telemetry continue Abx, discontinue Bumex 1mg, pending dialysis cath placement Diet: NPO GI prophylaxis: protonix DVT prophylaxis: heparin sc Code: Full code Case disclosed with Attending Dr. Chaim Perez PGY1 Senior Resident Attestation: The patient is a 70-year-old male with significant past medical history of HFpEF 55 to 60%, essential hypertension, heroin abuse disorder on methadone, hyperlipidemia, IDDM type II, presented with chief complaint of generalized body weakness and dyspepsia was admitted to the hospital on 12/12/2024 and was found to have acute hypoxic respiratory failure more likely secondary to volume overload in the setting of MIAN on stage IV CKD with oliguria. This morning he reported that his shortness of breath has been improving. He was saturating 93 to 94% on RA. His labs are significant for hemoglobin of 8.2, potassium of 4.0, and chloride 105. His creatinine trended up to 4.6. Phosphorus 6.1 and magnesium 2.4. 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 His potassium and chloride has been high. He was recommended Lokelma, but that was not available. So we will continue the patient on Veltassa 8.4 g daily and as needed Kayexalate. Will continue to monitor renal panel. Bumex 1 mg twice daily was discontinued, and hemodialysis catheter was placed. The plan is to get hemodialysis, and continue with ceftriaxone and doxycycline. We are awaiting blood culture, that has been negative for 48 hours, nasal MRSA pending. We will narrow down antibiotics depending on blood culture results. I discussed with and supervised the international nurse physician involved in the care of this patient. I personally saw and examined the patient and discussed the assessment and plan with the entire medicine team, including my attending. I agree with the assessment and plan as documented above. Brandon Edwards MD PGY2 Internal Medicine
--- NOTE | 2024-12-14 12:02 | XR_ITS ---
Ultrasound-guided needle placement right internal jugular vein Permanent tunneled dialysis catheter insertion, percutaneous Fluoroscopy AP chest, portable, single view. Date and time of procedure: December 14, 2024 at 1345 hours INDICATIONS: Renal failure, need for stat and long-term dialysis with permanent tunneled dialysis catheter Informed consent provided Technique: A timeout was completed verifying correct patient, procedure, site, positioning, and special equipment if applicable. The patient was placed in a dependent position appropriate for dialysis catheter placement based on the vein to be cannulated. The patient'sright neck was prepped and draped in sterile fashion. Maximum Sterile Barrier Technique used including cap, mask, sterile gown, sterile gloves, and sterile full body drape. If ultrasound technique used: sterile gel and sterile probe covers. Hand Hygiene performed using proper scrub, soap and water, or alcohol-based hand rub. 1% lidocaine was used to anesthetize the surrounding skin area The [facility] [employer] portable ultrasound apparatus utilized to confirm patency of the right internal jugular vein Utilizing ultrasonographic guidance successful 21-gauge needle puncture into the right internal jugular vein. Ultrasound images were recorded and stored. Vessel micropuncture was performed with 21-gauge needle. 0.18 wire guide is introduced into the vein. 0.18 wire is introduced into the vena cava under fluoroscopy. Subcutaneous tunnel formed in the upper chest. Permanent tunneled dialysis catheter placed in the subcutaneous tunnel. Dilators were introduced over the J-wire guide. Tunneled dialysis catheter is introduced through a dilator with venous sheath into the superior vena cava under fluoroscopic guidance. The catheter is sutured in place to the skin and a sterile dressing applied. Perfusion to the extremity distal to the point of catheter insertion is checked and found to be adequate Attending radiologist was present for the entire procedure Estimated blood loss4 cc. The patient tolerated the procedure well and there were no complications Impression: Successful ultrasound-guided needle placement right internal jugular vein Successful permanent tunneled dialysis catheter insertion, percutaneous Fluoroscopy 0.5 minute radiation dose 8.60 milligray 1 spot fluoroscopic chest film. AP chest performed at completion procedure demonstrates satisfactory position dialysis catheter. May use dialysis catheter.
[2024-12-14] MEDS: LIDOCAINE INJ PF 1% 5 ML VIAL 10 ML INFL (14:35)
[2024-12-14] MEDS: HEPARIN SOD INJ 1000 UNIT/ML VIAL 4100 UNIT INDWELLCAT (14:35)
[2024-12-14] MEDS: HEPARIN SOD LOCK SYR 100 UNIT/ML 500 UNIT STFIELD (14:35)
--- NOTE | 2024-12-14 14:38 | PC.SS ---
SS follow up note; SS was informed During Rounding that patient will be new dialysis patient. SS contacted [facility] in [place] and spoke to Karla. SS asked Karla if they are able to take patient's insurance. Karla informed SS they would have to run patient's insurance. SS sent over clinicals to [facility] Dialysis. Pending TB test and outer clinicals.
[2024-12-14] MEDS: TUBERCULIN PPD INJ 5 UNIT/0.1 ML DOSE ID (17:01)
[2024-12-14] MEDS: amLODIPine BESYLATE 5 MG TABLET 10 MG PO (20:09)
[2024-12-14] MEDS: PATIROMER CALCIUM 8.4 GM PACKET (NON-FORM) PO (20:09)
[2024-12-15] VITALS (24 sets, daily range): BP systolic 103–156; BP diastolic 64–92; PULSE 58–76; RESP 12–95; TEMP 36.1–36.9; O2SAT 94–98; BMI 37.0
[2024-12-15 06:20] LABS: Basophils # (Auto) 0.1 Thou/mm3 (0.0-0.2); Basophils % (Auto) 1 % (0-2.5); Eosinophils # (Auto) 0.4 Thou/mm3 (0.0-0.5); Eosinophils % (Auto) 5 % (0-10); Immature Granulocytes % (Auto) 0 % (0-0); Immature Granulocytes Auto 0.03 Thou/mm3 (0.00-0.00); Lymphocytes # (Auto) 2.5 Thou/mm3 (1.0-4.8); Lymphocytes % (Auto) 34 % (10-50); Mean Corpuscular Hemoglobin 29.5 pg (25.0-35.0); Mean Corpuscular Volume 92 fL (80-100); Monocytes # (Auto) 0.7 Thou/mm3 (0.0-0.8); Monocytes % (Auto) 9 % (0-12); Neutrophils # (Auto) 3.9 Thou/mm3 (1.8-7.7); Neutrophils % (Auto) 52 % (37-80); Nucleated Red Blood Cell % 0 /100 WBC (0); Platelet Count 148 Thou/mm3 (140-440); RDW Standard Deviation 49.8 fL (35.1-43.9); Red Blood Count 2.71 Miln/mm3 (4.50-5.90); White Blood Count 7.5 Thou/mm3 (3.8-10.6)
[2024-12-15 06:49] LABS: Alanine Aminotransferase 14 U/L (10-49); Albumin, Serum 3.7 gm/dL (3.4-4.8); Albumin/Globulin Ratio 1.1 (1.2-2.2); Alkaline Phosphatase 60 U/L (46-116); Anion Gap 12 (7-16); Aspartate Amino Transferase 21 U/L (0-34); BUN/Creatinine Ratio 22 Ratio (12-20); Bilirubin,Total 0.2 mg/dL (0.3-1.2); Blood Urea Nitrogen 93 mg/dL (9-23); Calcium 8.2 mg/dL (8.3-10.6); Calcium (Corrected) 8.4 mg/dL (8.5-10.1); Carbon Dioxide 22.1 mMol/L (20.0-31.0); Chloride 107 mMol/L (98-107); Creatinine (Component) 4.2 mg/dL (0.6-1.3); Estimated Creatinine Clearance 24.5 mL/min (>60); Globulin 3.5 gm/dL (2.3-3.5); Glucose 87 mg/dL (74-106); Magnesium 2.2 mg/dL (1.6-2.6); Osmolality,Calculated 308 (275-295); Phosphorous 5.1 mg/dL (2.4-5.1); Potassium 3.4 mMol/L (3.4-5.1); Sodium 141 mMol/L (136-145); Total Protein 7.2 gm/dL (5.7-8.2); eGFR 15 See Note
[2024-12-15] MEDS: cefTRIAXone/D5w 1gm IV premix 50 ML IV (08:08)
[2024-12-15] MEDS: METOPROLOL SUCCINATE XL 25 MG TABCR 100 MG PO (08:09)
[2024-12-15] MEDS: HEPARIN SOD INJ 5000 UNIT/ML VIAL SC ×2 (08:09→20:31)
[2024-12-15] MEDS: DOXYCYCLINE 100 MG TABLET PO ×2 (08:10→20:31)
[2024-12-15] MEDS: SENNA TABLET 1 TAB PO (08:10)
[2024-12-15] MEDS: PANTOPRAZOLE 40 MG TABLET PO (08:10)
[2024-12-15] MEDS: METHADONE HCL 10 MG TABLET 90 MG PO (08:10)
[2024-12-15] MEDS: SEVELAMER CARBONATE 800 MG TABLET 1600 MG PO ×3 (08:10→17:07)
[2024-12-15] MEDS: EPOETIN ALFA-EPBX INJ 10,000 UNIT/ML VIAL (ESRD) 10000 UNIT SC (10:43)
--- NOTE | 2024-12-15 11:24 | ESPR_ITS ---
<Statement entered by Kemal Rucker MD - 12/20/24 16:27> I reviewed above note and agree with findings and plans. I have also personally examined the patient with medicine team and went over assessment and plan with medical team including electrical engineering intern and resident physician. Documentation for date of: 12/15/24 Subjective Subjective Interval history: Patient seen at bedside this morning. No overnight events. Patient got his hemodialysis, tunneled catheter placed yesterday by interventional radiology. His hepatitis panel did come positive for hep C antibody. Patient will undergo hemodialysis today and will work on scheduling hemodialysis outpatient. No other complaints at this time. Exam Vital Signs Temp Pulse Resp BP Pulse Ox O2 Del Method O2 Flow Rate 98.4 F 59 L 16 126/78 95 Room Air 3 12/15/24 10:54 12/15/24 11:15 12/15/24 10:54 12/15/24 11:15 12/15/24 10:54 12/14/24 19:34 12/14/24 14:55 Narrative Exam General: A/O x3, no acute distress Eyes: PERRL, EOMI. Anicteric, vision grossly intact. Ears: No ear pain, no ear discharge, Hearing grossly intact. Nose: No nasal discharge. Mouth/Throat: Moist mucous membranes, no redness, no lesions. Neck: Neck supple, non-tender, no cervical lymphadenopathy. Lungs: Clear LINO upper lobes and mild crackles in lower lobes, No accessory muscle use. Cardio: Normal S1/S2, regular rhythm, no murmurs, no JVD Abdomen: Soft, non-tender, no palpable masses, peristalsis present, no guarding or rebound. Extremities: Symmetrical, no significant deformities, 2+ edema upto lower back/abdomen , non-tender, peripheral pulses presents. Skin: No rashes, no lesions, warm to touch. Tunneled cath in R upper chest. Neuro: No focal neurological deficits. motor and sensory intact Objective Labs 12/15/24 05:22 12/15/24 05:22 Labs: Laboratory Results - last 24 hr 12/15/24 05:22 WBC 7.5 RBC 2.71 L Hgb 8.0 L Hct 25.0 L MCV 92 MCH 29.5 MCHC 32.0 RDW Std Deviation 49.8 H Plt Count 148 Neut % (Auto) 52 Lymph % (Auto) 34 [place] % (Auto) 9 Eos % (Auto) 5 Baso % (Auto) 1 Neut # (Auto) 3.9 Lymph # (Auto) 2.5 [place] # (Auto) 0.7 Eos # (Auto) 0.4 Baso # (Auto) 0.1 Immature Gran # (Auto) 0.03 H Absolute Nucleated RBC 0.00 Immature Gran % 0 Nucleated RBC % 0 Sodium 141 Potassium 3.4 D Chloride 107 Carbon Dioxide 22.1 Anion Gap 12 BUN 93 H Creatinine 4.2 H* Estim Creat Clear Calc 24.5 L eGFR 15 L BUN/Creatinine Ratio 22 H Glucose 87 Calculated Osmolality 308 H Calcium 8.2 L Corrected Calcium 8.4 L Phosphorus 5.1 Magnesium 2.2 Total Bilirubin 0.2 L AST 21 ALT 14 Alkaline Phosphatase 60 Total Protein 7.2 Albumin 3.7 Globulin 3.5 Albumin/Globulin Ratio 1.1 L ABG Interpretation ABG results: 12/12/24 03:36 ABG pH 7.30 L ABG pCO2 45 ABG pO2 74 L ABG HCO3 22 ABG O2 Saturation 96 ABG Base Excess -5 L Quality Measures Quality Measures none Assessment & Plan Assessment Current Active Medications: Generic Name Dose Route Start Last Admin Trade Name Freq PRN Reason Stop Dose Admin Acetaminophen 650 mg 12/12/24 02:51 Acetaminophen 325 Mg Tablet PO 01/11/25 02:50 Q6H PRN Fever >100.3 or pain Amlodipine Besylate 10 mg 12/12/24 21:00 12/14/24 20:09 Amlodipine Besylate 5 Mg Tablet PO 01/11/25 20:59 10 mg HS RAMSEY Administration Doxycycline Hyclate 100 mg 12/12/24 09:00 12/15/24 08:10 Doxycycline 100 Mg Tablet PO 12/19/24 08:59 100 mg BID RAMSEY Administration Heparin Sodium (Porcine) 5,000 unit 12/12/24 09:00 12/15/24 08:09 Heparin Sod Inj 5000 Unit/Ml Vial SC 12/26/24 08:59 5,000 unit BID RAMSEY Administration Heparin Sodium (Porcine) 4,100 unit 12/15/24 10:19 Heparin Sod Inj 1000 Unit/Ml Vial 10 Ml INDWELLCAT 12/29/24 10:18 X1 PRN DIALYSIS Ceftriaxone Sodium/Dextrose 50 mls @ 100 mls/hr 12/13/24 09:00 12/15/24 08:08 Rocephin/D5w 1gm Iv Premix IV 12/20/24 08:59 100 mls/hr QDAY RAMSEY Administration Albumin Human 25 gm in 100 mls @ 100 mls/hr 12/15/24 07:28 Albuminar-25 Ivpb IV PRN PRN DIALYSIS Methadone HCl 90 mg 12/15/24 09:00 12/15/24 08:10 Methadone Hcl 10 Mg Tablet PO 12/20/24 08:59 90 mg QDAY RAMSEY Administration Metoprolol Succinate 100 mg 12/12/24 09:00 12/15/24 08:09 Metoprolol Succinate Xl 25 Mg Tabcr PO 01/11/25 08:59 100 mg DAILY RAMSEY Administration Ondansetron HCl 4 mg 12/12/24 02:51 Ondansetron Inj 2 Mg/Ml Inj 2 Ml IV 01/11/25 02:50 Q6H PRN NAUSEA OR VOMITING Protocol Pantoprazole Sodium 40 mg 12/12/24 09:00 12/15/24 08:10 Pantoprazole 40 Mg Tablet PO 01/11/25 08:59 40 mg QDAY RAMSEY Administration Patiromer 8.4 gm 12/12/24 21:00 12/14/24 20:09 Patiromer Calcium 8.4 Gm Packet (Non-Form) PO 01/11/25 20:59 8.4 gm HS RAMSEY Administration Sennosides 1 tab 12/12/24 09:00 12/15/24 08:10 Senna Tablet PO 01/11/25 08:59 1 tab QDAY RAMSEY Administration Protocol Sevelamer Carbonate 1,600 mg 12/14/24 08:00 12/15/24 08:10 Sevelamer Carbonate 800 Mg Tablet PO 01/13/25 07:59 1,600 mg TIDWM RAMSEY Administration Plan 64-year-old wheelchair bound male with past medical history of HFpEF (EF 55 to 60% 10/2024), essential hypertension, Hx of heroin use and on methadone, hyperlipidemia, IDDM, COVID-pneumonia in 2019 with residual lower body weakness and dyspepsia was admitted to the hospital on 12/12/2024 due to acute hypoxic respiratory failure likely in the setting of acute decompensated heart failure exacerbation versus community-acquired pneumonia versus hospital-acquired pneumonia. #MIAN on CKD stage IV, requiring HD ? Patient came in with creatinine of 4.1 ? Baseline creatinine around 3.7 ? Follows up with operator specialist communications outpatient, but unsure which one ? Cr today 4.2 Plan: -HD scheduled for today, first day today ? Avoid nephrotoxic agents ? Renally dose medications ?Cardiology consulted, pressure recommendations ? Will continue to monitor #Acute hypoxic respiratory failure likely secondary to #Acute on chronic diastolic congestive heart failure exacerbation (EF 55 to 60% on 10/2024) #Dyspnea ?Patient came in due to increased shortness of breath for the last few days. He indicates that he cannot walk short distances that he gets very short of breath ? Lower extremity edema noted upto lower back ? BNP 781 ?Chest x-ray showed heart failure pattern ?Echo on 11/06/2024 showed EF of 55 to 60% and stage I diastolic dysfunction. ?Patient had total balance of -670 mL Plan: ? Discotinued Bumex 1 mg twice daily ? Continue patient's metoprolol 100 mg daily ? Strict LILIAN's ? Daily weights ? O2 administration as needed ?Will continue to monitor #Community-acquired pneumonia versus hospital-acquired pneumonia ? Patient was recently discharged from our hospital on 11/09/2024 due to similar symptoms ? Patient also stated that he went to [facility] and was treated for pneumonia. ? Chest x-ray did show bilateral pneumonia ? PSI/port score of 143 points, risk class V indicating 27 to 29.2% mortality and hospitalization recommended ?Blood cultures negative Plan: ? Continue Rocephin and doxycycline [12/12/2024?] ?Will continue to monitor #Electrolyte imbalance #Hyperkalemia #Hyperchloremia, resolved #Hypocalcemia #Hypermagnesemia. #Hyperphosphatemia #NAGMA ?Patient came in initially with potassium of 5.4, chloride 108, calcium 8.2 ?Likely RTA ?Bicarb initially was 14.9 ?Potassium today is 5.7, chloride 107, bicarb 21.7, calcium 8.5, and magnesium 2.8 ?Repeat renal function panel showed potassium 5.3, chloride 107, bicarb 19.7, magnesium 2.8, and phosphorus 5.7 ? EKG did not show any T wave abnormalities. ?Potassium 3.4, chloride 107, bicarb 22.1, phosphorus 5.1, and calcium 8.4 today Plan: ?Will replete other electrolytes as needed #Hx of IDDM ?A1c on 11/07/2024 was 4.8 Plan: ? Will monitor blood sugars for now ?Will start insulin sliding scale if patient's blood sugars become elevated ? Carb consistent low diet #Hx of hypertension ?Patient blood pressure has been elevated since admission Plan: ? Continue metoprolol 100 mg daily ?Continue patient's amlodipine 10 mg p.o. at bedtime #Hx of hyperlipidemia -Continue patient's atorvastatin 80 at bedtime #Hx of heroin use currently on methadone ?Continue patient's methadone Disposition: Patient seen in telemetry continue Abx, started HD today, pending outpatient setup of HD. Diet: NPO GI prophylaxis: protonix DVT prophylaxis: heparin sc Code: Full code Case disclosed with Attending Dr. Rucker and my senior Dr. Edwards PGY2 Shashi Perez PGY1 Senior Resident Attestation: The patient is a 70-year-old male with significant past medical history of HFpEF 55 to 60%, essential hypertension, heroin abuse disorder on methadone, hyperlipidemia, IDDM type II, presented with chief complaint of generalized body weakness and dyspepsia was admitted to the hospital on 12/12/2024 and was found to have acute hypoxic respiratory failure more likely secondary to volume overload in the setting of MIAN on stage IV CKD with oliguria. This morning he reported that his shortness of breath has improved. He was saturating 93 to 94% on RA. His labs are significant for hemoglobin of 8.0, potassium of 3.4, and chloride 107. His creatinine was 4.2. Phosphorus 5.1 and magnesium 2.2. The patient underwent first session of hemodialysis this morning, and was able to tolerate 1 L of net ultrafiltration. 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 His potassium and chloride has been high. We will continue the patient on Veltassa 8.4 g daily and as needed Kayexalate. Will continue to monitor renal panel. We are awaiting PPD read, and he was also positive for hepatitis C, for which we will deferred the treatment as an outpatient. The patient will be discharged home after his hemodialysis chair is set up. I discussed with and supervised the electrical engineering intern physician involved in the care of this patient. I personally saw and examined the patient and discussed the assessment and plan with the entire medicine team, including my attending. I agree with the assessment and plan as documented above. Brandon Edwards MD PGY2 Internal Medicine
--- NOTE | 2024-12-15 13:13 | PC.NURSE ---
1st Dialysis completed for 2 hrs, tolerated well. Pt no complaints. Respiration even and unlabored. Saturating at 95% RA. Able to removed 1000 ml of fluid net. Post tx BP 142/79, HR 64, Temp 98.4. Pt back in his rm. Call light within reached. Report given to Lexy WEBER
[2024-12-15] MEDS: CALCIUM CARBONATE 600 MG TABLET PO (17:07)
[2024-12-15] MEDS: amLODIPine BESYLATE 5 MG TABLET 10 MG PO (20:31)
[2024-12-15] MEDS: PATIROMER CALCIUM 8.4 GM PACKET (NON-FORM) PO (20:32)
[2024-12-16] VITALS (24 sets, daily range): BP systolic 133–172; BP diastolic 70–91; PULSE 57–68; RESP 13–96; TEMP 36.4–37.3; O2SAT 95–97; BMI 36.8
[2024-12-16 06:19] LABS: Basophils % (Auto) 1 % (0-2.5); Eosinophils # (Auto) 0.3 Thou/mm3 (0.0-0.5); Eosinophils % (Auto) 4 % (0-10); Hematocrit 26.8 % (41.0-53.0); Immature Granulocytes % (Auto) 1 % (0-0); Immature Granulocytes Auto 0.04 Thou/mm3 (0.00-0.00); Lymphocytes # (Auto) 3.1 Thou/mm3 (1.0-4.8); Lymphocytes % (Auto) 38 % (10-50); Mean Corpuscular HGB Conc 32.5 g/dl (31.0-37.0); Mean Corpuscular Hemoglobin 29.6 pg (25.0-35.0); Mean Corpuscular Volume 91 fL (80-100); Monocytes # (Auto) 0.7 Thou/mm3 (0.0-0.8); Monocytes % (Auto) 9 % (0-12); Neutrophils # (Auto) 3.9 Thou/mm3 (1.8-7.7); Neutrophils % (Auto) 49 % (37-80); Nucleated Red Blood Cell % 0 /100 WBC (0); Platelet Count 116 Thou/mm3 (140-440); RDW Standard Deviation 48.5 fL (35.1-43.9); Red Blood Count 2.94 Miln/mm3 (4.50-5.90); White Blood Count 8.1 Thou/mm3 (3.8-10.6)
[2024-12-16 06:25] LABS: Hemoglobin 8.7 g/dL (13.5-16.0)
[2024-12-16 06:51] LABS: Alanine Aminotransferase 16 U/L (10-49); Albumin, Serum 3.7 gm/dL (3.4-4.8); Albumin/Globulin Ratio 1.1 (1.2-2.2); Alkaline Phosphatase 57 U/L (46-116); Anion Gap 12 (7-16); Aspartate Amino Transferase 30 U/L (0-34); BUN/Creatinine Ratio 20 Ratio (12-20); Bilirubin,Total 0.2 mg/dL (0.3-1.2); Blood Urea Nitrogen 63 mg/dL (9-23); Calcium 8.2 mg/dL (8.3-10.6); Calcium (Corrected) 8.4 mg/dL (8.5-10.1); Carbon Dioxide 22.7 mMol/L (20.0-31.0); Chloride 105 mMol/L (98-107); Creatinine (Component) 3.1 mg/dL (0.6-1.3); Estimated Creatinine Clearance 33.1 mL/min (>60); Globulin 3.4 gm/dL (2.3-3.5); Glucose 79 mg/dL (74-106); Osmolality,Calculated 296 (275-295); Phosphorous 3.1 mg/dL (2.4-5.1); Potassium 3.4 mMol/L (3.4-5.1); Sodium 140 mMol/L (136-145); Total Protein 7.1 gm/dL (5.7-8.2); eGFR 22 See Note
[2024-12-16] MEDS: HEPARIN SOD INJ 1000 UNIT/ML VIAL 10 ML 4100 UNIT INDWELLCAT (10:31)
[2024-12-16] MEDS: METHADONE HCL 10 MG TABLET 90 MG PO (11:00)
[2024-12-16] MEDS: SENNA TABLET 1 TAB PO (11:01)
[2024-12-16] MEDS: CALCIUM CARBONATE 600 MG TABLET PO (11:01)
[2024-12-16] MEDS: PANTOPRAZOLE 40 MG TABLET PO (11:01)
[2024-12-16] MEDS: METOPROLOL SUCCINATE XL 25 MG TABCR 100 MG PO (11:01)
[2024-12-16] MEDS: SEVELAMER CARBONATE 800 MG TABLET 1600 MG PO ×2 (11:02→16:44)
[2024-12-16] MEDS: HEPARIN SOD INJ 5000 UNIT/ML VIAL SC ×2 (11:02→21:13)
--- NOTE | 2024-12-16 15:44 | PD.RESPRO ---
Documentation for date of: 12/16/24 Subjective Subjective Interval history: The patient reported doing well this morning. He was saturating 95% on room air. He denied any chest pain, SOB, abdominal pain, any bleeding from the hemodialysis catheter site. Exam Vital Signs Temp Pulse Resp BP Pulse Ox O2 Del Method O2 Flow Rate 97.7 F 63 18 172/84 H 95 Room Air 3 12/16/24 12:00 12/16/24 12:00 12/16/24 12:00 12/16/24 12:00 12/16/24 12:00 12/16/24 12:00 12/14/24 14:55 Narrative Exam General: A/O x3, no acute distress Eyes: PERRL, EOMI. Anicteric, vision grossly intact. Ears: No ear pain, no ear discharge, Hearing grossly intact. Nose: No nasal discharge. Mouth/Throat: Moist mucous membranes, no redness, no lesions. Neck: Neck supple, non-tender, no cervical lymphadenopathy. Lungs: Clear LINO upper lobes and mild crackles in lower lobes, No accessory muscle use. Cardio: Normal S1/S2, regular rhythm, no murmurs, no JVD Abdomen: Soft, non-tender, no palpable masses, peristalsis present, no guarding or rebound. Extremities: Symmetrical, no significant deformities, 1+ edema upto lower back/abdomen , non-tender, peripheral pulses presents. Skin: No rashes, no lesions, warm to touch. Tunneled cath in R upper chest. Neuro: No focal neurological deficits. motor and sensory intact Objective Labs 12/16/24 04:58 12/16/24 04:58 Labs: Laboratory Results - last 24 hr 12/16/24 04:58 WBC 8.1 RBC 2.94 L Hgb 8.7 L Hct 26.8 L MCV 91 MCH 29.6 MCHC 32.5 RDW Std Deviation 48.5 H Plt Count 116 L D Neut % (Auto) 49 Lymph % (Auto) 38 [place] % (Auto) 9 Eos % (Auto) 4 Baso % (Auto) 1 Neut # (Auto) 3.9 Lymph # (Auto) 3.1 [place] # (Auto) 0.7 Eos # (Auto) 0.3 Baso # (Auto) 0.0 Immature Gran # (Auto) 0.04 H Absolute Nucleated RBC 0.00 Immature Gran % 1 H Nucleated RBC % 0 Sodium 140 Potassium 3.4 Chloride 105 Carbon Dioxide 22.7 Anion Gap 12 BUN 63 H Creatinine 3.1 H D Estim Creat Clear Calc 33.1 L eGFR 22 L BUN/Creatinine Ratio 20 Glucose 79 Calculated Osmolality 296 H Calcium 8.2 L Corrected Calcium 8.4 L Phosphorus 3.1 Magnesium 2.0 Total Bilirubin 0.2 L AST 30 ALT 16 Alkaline Phosphatase 57 Total Protein 7.1 Albumin 3.7 Globulin 3.4 Albumin/Globulin Ratio 1.1 L ABG Interpretation ABG results: 12/12/24 03:36 ABG pH 7.30 L ABG pCO2 45 ABG pO2 74 L ABG HCO3 22 ABG O2 Saturation 96 ABG Base Excess -5 L Quality Measures Quality Measures none Assessment & Plan Assessment Current Active Medications: Generic Name Dose Route Start Last Admin Trade Name Freq PRN Reason Stop Dose Admin Acetaminophen 650 mg 12/12/24 02:51 Acetaminophen 325 Mg Tablet PO 01/11/25 02:50 Q6H PRN Fever >100.3 or pain Amlodipine Besylate 10 mg 12/12/24 21:00 12/15/24 20:31 Amlodipine Besylate 5 Mg Tablet PO 01/11/25 20:59 10 mg HS RAMSEY Administration Calcium Carbonate 600 mg 12/15/24 16:45 12/16/24 11:01 Calcium Carbonate 600 Mg Tablet PO 01/14/25 16:44 600 mg QDAY RAMSEY Administration Heparin Sodium (Porcine) 5,000 unit 12/12/24 09:00 12/16/24 11:02 Heparin Sod Inj 5000 Unit/Ml Vial SC 12/26/24 08:59 5,000 unit BID RAMSEY Administration Heparin Sodium (Porcine) 4,100 unit 12/15/24 10:19 12/16/24 10:31 Heparin Sod Inj 1000 Unit/Ml Vial 10 Ml INDWELLCAT 12/29/24 10:18 4,100 unit X1 PRN Administration DIALYSIS Albumin Human 25 gm in 100 mls @ 100 mls/hr 12/15/24 07:28 Albuminar-25 Ivpb IV PRN PRN DIALYSIS Methadone HCl 90 mg 12/15/24 09:00 12/16/24 11:00 Methadone Hcl 10 Mg Tablet PO 12/20/24 08:59 90 mg QDAY RAMSEY Administration Metoprolol Succinate 100 mg 12/12/24 09:00 12/16/24 11:01 Metoprolol Succinate Xl 25 Mg Tabcr PO 01/11/25 08:59 100 mg DAILY RAMSEY Administration Ondansetron HCl 4 mg 12/12/24 02:51 Ondansetron Inj 2 Mg/Ml Inj 2 Ml IV 01/11/25 02:50 Q6H PRN NAUSEA OR VOMITING Protocol Pantoprazole Sodium 40 mg 12/12/24 09:00 12/16/24 11:01 Pantoprazole 40 Mg Tablet PO 01/11/25 08:59 40 mg QDAY RAMSEY Administration Patiromer 8.4 gm 12/12/24 21:00 12/15/24 20:32 Patiromer Calcium 8.4 Gm Packet (Non-Form) PO 01/11/25 20:59 8.4 gm HS RAMSEY Administration Sennosides 1 tab 12/12/24 09:00 12/16/24 11:01 Senna Tablet PO 01/11/25 08:59 1 tab QDAY RAMSEY Administration Protocol Sevelamer Carbonate 1,600 mg 12/14/24 08:00 12/16/24 11:12 Sevelamer Carbonate 800 Mg Tablet PO 01/13/25 07:59 Not Given TIDWM RAMSEY Plan 64-year-old wheelchair bound male with past medical history of HFpEF (EF 55 to 60% 10/2024), essential hypertension, Hx of heroin use and on methadone, hyperlipidemia, IDDM, COVID-pneumonia in 2019 with residual lower body weakness and dyspepsia was admitted to the hospital on 12/12/2024 due to acute hypoxic respiratory failure likely in the setting of acute decompensated heart failure exacerbation versus community-acquired pneumonia versus hospital-acquired pneumonia. #MIAN on CKD stage IV, requiring HD ? Patient came in with creatinine of 4.1 ? Baseline creatinine around 3.7 ? Follows up with audit clerks supervisor outpatient, but unsure which one ? Cr today 4.2 Plan: -Patient underwent second session of hemodialysis this morning, and net ultrafiltration was 1.2 L. ? Avoid nephrotoxic agents ? Renally dose medications ? Nephrology Dr. Hutchinson consulted, appreciate recommendations ? Will continue to monitor #Acute hypoxic respiratory failure, resolved #Acute exacerbation of congestive heart failure exacerbation (EF 55 to 60% on 10/2024), exacerbation resolved ?Patient came in due to increased shortness of breath for the last few days. He indicates that he cannot walk short distances that he gets very short of breath ? Lower extremity edema noted upto lower back ? BNP 781 ?Chest x-ray showed heart failure pattern ?Echo on 11/06/2024 showed EF of 55 to 60% and stage I diastolic dysfunction. ?Patient had total balance of -670 mL Plan: ? Discotinued Bumex 1 mg twice daily ? Continue patient's metoprolol 100 mg daily ? Strict LILIAN's ? Daily weights ? O2 administration as needed ? Will continue to monitor -Hemodialysis as above #Community-acquired pneumonia, resolved DDx: Hospital-acquired pneumonia ? Patient was recently discharged from our hospital on 11/09/2024 due to similar symptoms ? Patient also stated that he went to [facility] and was treated for pneumonia. ? Chest x-ray did show bilateral pneumonia ? PSI/port score of 143 points, risk class V indicating 27 to 29.2% mortality and hospitalization recommended ?Blood cultures negative Plan: ? Continue Rocephin and doxycycline [12/12/2024?12/16/2024] ? Will continue to monitor #Electrolyte imbalance #Hyperkalemia #Hyperchloremia, resolved #Hypocalcemia #Hypermagnesemia. #Hyperphosphatemia #NAGMA ?Patient came in initially with potassium of 5.4, chloride 108, calcium 8.2 ?Likely RTA ?Bicarb initially was 14.9 ?Potassium today is 5.7, chloride 107, bicarb 21.7, calcium 8.5, and magnesium 2.8 ?Repeat renal function panel showed potassium 5.3, chloride 107, bicarb 19.7, magnesium 2.8, and phosphorus 5.7 ? EKG did not show any T wave abnormalities. ?Potassium 3.4, chloride 107, bicarb 22.1, phosphorus 5.1, and calcium 8.4 today Plan: ?Will replete other electrolytes as needed #Hx of IDDM ?A1c on 11/07/2024 was 4.8 Plan: ? Will monitor blood sugars for now ?Will start insulin sliding scale if patient's blood sugars become elevated ? Carb consistent low diet #Hx of hypertension ?Patient blood pressure has been elevated since admission Plan: ? Continue metoprolol 100 mg daily ?Continue patient's amlodipine 10 mg p.o. at bedtime - Started on hydralazine 50 mg TID, will increase the dose as tolerated. #Hx of hyperlipidemia -Continue patient's atorvastatin 80 at bedtime #Hx of heroin use currently on methadone ?Continue patient's methadone Disposition: Patient admitted to telemetry unit for further management of volume overload in the setting of MIAN and stage IV CKD Diet: Renal diet GI prophylaxis: protonix DVT prophylaxis: heparin sc Code: Full code The patient's management plan was discussed with my attending physician MD Brandon Motley MD, PGY2 Attending Provider Attestation/Addendum 64-year-old male patient with diabetes mellitus was admitted for shortness of breath. The most plausible cause for his symptoms is fluid overload from worsening renal function. The patient is now on hemodialysis He had uremic symptoms and electrolyte abnormalities.. Continue current management. Discussed with housestaff.
[2024-12-16] MEDS: hydrALAZINE HCL 25 MG TABLET 50 MG PO ×2 (16:44→21:13)
[2024-12-16] MEDS: PATIROMER CALCIUM 8.4 GM PACKET (NON-FORM) PO (21:13)
[2024-12-16] MEDS: amLODIPine BESYLATE 5 MG TABLET 10 MG PO (21:13)
[2024-12-17] VITALS (29 sets, daily range): BP systolic 108–164; BP diastolic 70–93; PULSE 59–107; RESP 15–97; TEMP 36–36.9; O2SAT 95–97; BMI 35.7
[2024-12-17] MEDS: hydrALAZINE HCL 25 MG TABLET 50 MG PO ×3 (05:20→21:16)
[2024-12-17 08:24] LABS: Alanine Aminotransferase 17 U/L (10-49); Albumin, Serum 3.9 gm/dL (3.4-4.8); Albumin/Globulin Ratio 1.1 (1.2-2.2); Alkaline Phosphatase 65 U/L (46-116); Anion Gap 10 (7-16); Aspartate Amino Transferase 27 U/L (0-34); BUN/Creatinine Ratio 18 Ratio (12-20); Bilirubin,Total 0.4 mg/dL (0.3-1.2); Blood Urea Nitrogen 44 mg/dL (9-23); Calcium 8.5 mg/dL (8.3-10.6); Calcium (Corrected) 8.6 mg/dL (8.5-10.1); Carbon Dioxide 26.1 mMol/L (20.0-31.0); Chloride 102 mMol/L (98-107); Creatinine (Component) 2.4 mg/dL (0.6-1.3); Estimated Creatinine Clearance 42.1 mL/min (>60); Globulin 3.6 gm/dL (2.3-3.5); Glucose 109 mg/dL (74-106); Magnesium 1.9 mg/dL (1.6-2.6); Osmolality,Calculated 287 (275-295); Phosphorous 2.3 mg/dL (2.4-5.1); Sodium 138 mMol/L (136-145); Total Protein 7.5 gm/dL (5.7-8.2); eGFR 30 See Note
[2024-12-17 08:42] LABS: Basophils # (Auto) 0.1 Thou/mm3 (0.0-0.2); Basophils % (Auto) 1 % (0-2.5); Eosinophils # (Auto) 0.3 Thou/mm3 (0.0-0.5); Eosinophils % (Auto) 3 % (0-10); Hematocrit 28.1 % (41.0-53.0); Immature Granulocytes % (Auto) 1 % (0-0); Immature Granulocytes Auto 0.06 Thou/mm3 (0.00-0.00); Lymphocytes # (Auto) 2.6 Thou/mm3 (1.0-4.8); Lymphocytes % (Auto) 28 % (10-50); Mean Corpuscular Hemoglobin 29.1 pg (25.0-35.0); Mean Corpuscular Volume 91 fL (80-100); Monocytes # (Auto) 0.8 Thou/mm3 (0.0-0.8); Monocytes % (Auto) 9 % (0-12); Neutrophils # (Auto) 5.5 Thou/mm3 (1.8-7.7); Neutrophils % (Auto) 59 % (37-80); Nucleated Red Blood Cell % 0 /100 WBC (0); Platelet Count 133 Thou/mm3 (140-440); RDW Standard Deviation 47.9 fL (35.1-43.9); Red Blood Count 3.09 Miln/mm3 (4.50-5.90); White Blood Count 9.3 Thou/mm3 (3.8-10.6)
--- NOTE | 2024-12-17 09:03 | PC.SS ---
Addendum entered by Ros Morris 12/17/24 15:23: Follow up note: SS spoke to patient who states he wants to go to dialysis closer to him in [place] or [place]. He also wants to follow with his [facility] in [place]. SS contacted [place] and spoke to Dr. Macdonald's office. He agreed to follow patient at [facility]. SS submitted online to [facility] for a new patient. D/c pending o/p chair time. Addendum entered by Ros Morris 12/17/24 14:18: SS followed up with [facility]/[place] and they stated they should have an answer by end of today on schedule and approval. [facility] states patient is transitioning from MIAN to Renal failure. This will provide coverage under his insurance as well. SS updated physician and tele floor that patient cannot leave until we have schedule or confirmation insurance is covering dialysis o/p treatment. Addendum entered by Ros Morris 12/17/24 11:51: SS received updated call from AMIRA Stanford @ [facility] dialysis and she states their corporate office is trying to get authorization but the patient's insurance does not cover the diagnosis of MIAN. It only covers for renal failure dx. cut off worker will updated Dr. Hutchinson's nurse to verify what they would like to do. D/c pending o/p chair time. Original Note: Follow up note: SS spoke to AMIRA Stanford at dialysis [facility] and they are still working on financial clearance. They state patient's insurance has limited coverage.
[2024-12-17] MEDS: HEPARIN SOD INJ 1000 UNIT/ML VIAL 10 ML 4100 UNIT INDWELLCAT (11:07)
--- NOTE | 2024-12-17 11:14 | PD.RESDS ---
Planned Discharge Date 12/17/24 DS: Providers Provider Date of admission: 12/12/24 02:52 Primary care physician: Scout Helton MD Admitting Provider: Antonino Giles MD Attending Provider on Admission: Kervin Crews MD Consults: 12/12/24 02:57 Consult to Nephrology Routine Comment: MIAN on CKD Consulting Provider: Joseph Hutchinson 12/12/24 08:26 Referral Infection Control Routine Comment: Reason for Infection Control Referral: Readmitted within 30 days Health Equity Referral - Nutrition Routine Comment: Positive screening for nutrition needs. Attending Provider on DC: Kervin Crews MD Discharging Provider: Kervin Crews MD DS: Diagnosis Problem List Completed Was Problem List Reviewed/Reconciled?: Yes Hospital Course Hospital Course Hospital course: 64-year-old wheelchair bound male with past medical history of HFpEF (EF 55 to 60% 10/2024), essential hypertension, Hx of heroin use and on methadone, hyperlipidemia, IDDM, COVID-pneumonia in 2019 with residual lower body weakness and dyspepsia was admitted to the hospital on 12/12/2024 due to acute hypoxic respiratory failure likely in the setting of fluid overload status in the setting of CKD stage V requiring hemodialysis, acute decompensated heart failure exacerbation, and community-acquired pneumonia versus hospital-acquired pneumonia. In the ED patient came in with complaints of shortness of breath. Initially was afebrile and mildly hypertensive. Initial labs were relevant for anemia (Hgb 7.9), hyperkalemia (5.7), MIAN on CKD (elevated creatinine of 4 BUN 85), hypomagnesemia (2.8), and elevated BNP (781). Initial imaging included chest x-ray which showed bilateral pneumonia and CHF pattern and EKG which showed sinus rhythms. Throughout the hospital stay patient was treated with IV diuretics initially as he seemed to be fluid overloaded which could have been causing his kidney function to worsen. Patient did not diurese at goal and kidney function continue to worsen to creatinine at 4.6 and BUN of 93 therefore spoke with alarm field technician was consulted given the patient would likely need hemodialysis. Nephrology stated that patient would not fact need hemodialysis therefore a tunneled cath was inserted by interventional radiology. Patient was also ordered hepatitis panel as he would not be started on hemodialysis and hep C antibody was reactive, to which patient stated that he might had some knowledge about this as in the past he was on IV drug use and sometimes shared needles and may be of physician had told him in the past. Patient was also treated for antibiotics for his pneumonia. For patient's hyperkalemia he was treated with insulin initially with amps of D50, but these did not lower the potassium to normal range therefore Kayexalate was given x 1 and he was started on Veltassa scheduled and eventually his potassium did go back to normal range. At the time of discharge patient was stable enough to be discharged home. Discharge plan: ? Please follow-up with primary care physician in 1 after discharge, and get Hepatitis C viral load ? Please follow-up with alarm field technician in 1 to 2 weeks within discharge - Continue with Regularly scheduled hemodialysis - Started on Sevelamer carbonate 800mg 3times daily with meals ? You have been started on calcium carbonate 600 Mg daily ? Changed your metoprolol to tartrate 100 Mg twice daily to metoprolol tartrate 50 Mg twice daily, please take half of your previous 100mg tablets ? Continue with all other medicines as previously prescribed ? Please come back to the ER if symptoms persist or worsen Problem list: #MIAN on CKD stage IV, requiring HD #Acute hypoxic respiratory failure likely secondary to #Acute on chronic diastolic congestive heart failure exacerbation (EF 55 to 60% on 10/2024) #Dyspnea #Community-acquired pneumonia #Electrolyte imbalance #Hyperkalemia #Hyperchloremia, resolved #Hypocalcemia #Hypermagnesemia. #Hyperphosphatemia #NAGMA #Hx of IDDM #Hx of hypertension #Hx of hyperlipidemia #Hx of heroin use currently on methadone Case disclosed with Attending Dr. Crews and My senior Dr. Edwards PGY2. Shashi Perez PGY1 Senior Resident Attestation: I discussed with and supervised the internal control specialist physician involved in the care of this patient. I personally saw and examined the patient and discussed the assessment and plan with the entire medicine team, including my attending. I agree with the discharge plan as documented above. Brandon Edwards MD PGY2 Internal Medicine Status at Discharge Overall status at discharge: patient is progressing back to baseline Time Spent with Patient Time attestation: Total time spent providing and/or coordinating discharge services:>35 min Exam Vital Signs Temp Pulse Resp BP Pulse Ox O2 Del Method O2 Flow Rate 98.2 F 66 18 143/79 H 97 Room Air 3 12/17/24 11:03 12/17/24 11:03 12/17/24 11:03 12/17/24 11:03 12/17/24 11:03 12/17/24 07:59 12/14/24 14:55 Narrative Exam General: A/O x3, no acute distress Eyes: PERRL, EOMI. Anicteric, vision grossly intact. Ears: No ear pain, no ear discharge, Hearing grossly intact. Nose: No nasal discharge. Mouth/Throat: Moist mucous membranes, no redness, no lesions. Neck: Neck supple, non-tender, no cervical lymphadenopathy. Lungs: Clear LINO upper lobes and mild crackles in lower lobes, No accessory muscle use. Cardio: Normal S1/S2, regular rhythm, no murmurs, no JVD Abdomen: Soft, non-tender, no palpable masses, peristalsis present, no guarding or rebound. Extremities: Symmetrical, no significant deformities, 1+ edema upto lower back/abdomen, improving , non-tender, peripheral pulses presents. Skin: No rashes, no lesions, warm to touch. Tunneled cath in R upper chest. Neuro: No focal neurological deficits. motor and sensory intact Discharge Plan Plan Patient Disposition: HOME (Self Care) Care Plan Goals: ? Please follow-up with primary care physician in 1 after discharge, and get Hepatitis C viral load ? Please follow-up with alarm field technician in 1 to 2 weeks within discharge - Continue with Regularly scheduled hemodialysis - Started on Sevelamer carbonate 800mg 3times daily with meals ? You have been started on calcium carbonate 600 Mg daily ? Changed your metoprolol to tartrate 100 Mg twice daily to metoprolol tartrate 50 Mg twice daily, please take half of your previous 100mg tablets ? Continue with all other medicines as previously prescribed ? Please come back to the ER if symptoms persist or worsen Prescriptions/Referrals Prescriptions/Med Rec: New sevelamer carbonate 800 mg Tablet 800 mg PO TIDWM 30 Days Qty: 90 2RF calcium carbonate 600 mg calcium (1,500 mg) Tablet 600 mg PO QDAY 30 Days Qty: 30 0RF Continued gemfibrozil 600 mg tablet 600 mg BID Hold Instructions: Resume on 11/23/24. HOLD until follow up with PCP Already on statin Patient Comments: take 1 tablet by mouth twice a day hydralazine 100 mg tablet 100 mg PO TID Patient Comments: take 1 tablet by mouth three times a day with food esomeprazole magnesium 40 mg capsule,delayed release(DR/EC) 40 mg QDAY Patient Comments: take 1 capsule by mouth once daily (DME) FreeStyle Evangelista 3 Sensor Device See Rx Instructions .Route Qty: 1 0RF Rx Instructions: As directed amlodipine 10 mg tablet 10 mg PO HS 30 Days Qty: 30 0RF atorvastatin 80 mg tablet 80 mg PO HS 30 Days Qty: 30 0RF furosemide 40 mg tablet 40 mg PO EVERYOTHERDAY Patient Comments: take 1 tablet by mouth every other day Changed metoprolol tartrate 100 mg tablet 50 mg PO BID Qty: 30 0RF Patient Comments: take 1 tablet by mouth twice a day with food Referrals: Scout Helton MD [Primary Care Provider] - Patient/Caregiver Discharge Instructions Discharge Activity: activity as tolerated Education Materials: Hemodialysis, ED Chronic Kidney Disease (CKD) Print Language: Grenadian Stand Alone Forms: Lois Award Info., Patient Portal Info Letter Discharge Order Discharge Orders: Discharge (Routine); Ordered 12/17/24 Ordered By: Genesis Stout Quality Discharge Quality Measures VTE prophylaxis Attestestation MD Attestation I discussed with and supervised the resident physician who took care of this patient. I agree with the assessment and discharge plan as above.
[2024-12-17] MEDS: HEPARIN SOD INJ 5000 UNIT/ML VIAL SC ×2 (11:45→21:16)
[2024-12-17] MEDS: METHADONE HCL 10 MG TABLET 90 MG PO (11:45)
[2024-12-17] MEDS: SEVELAMER CARBONATE 800 MG TABLET 1600 MG PO ×2 (11:48→16:37)
[2024-12-17] MEDS: METOPROLOL SUCCINATE XL 25 MG TABCR 100 MG PO (11:49)
[2024-12-17] MEDS: SENNA TABLET 1 TAB PO (11:49)
[2024-12-17] MEDS: CALCIUM CARBONATE 600 MG TABLET PO (11:49)
[2024-12-17] MEDS: PANTOPRAZOLE 40 MG TABLET PO (11:52)
[2024-12-17] MEDS: NAPH,KPH MBDB 1 PACKET (1.5 GM) PO (12:01)
--- NOTE | 2024-12-17 12:25 | PC.NURSE ---
Patient scheduled for discharge. Patient's ride will not arrive until 14:30-15:00.
--- NOTE | 2024-12-17 16:36 | ESPR_ITS ---
Documentation for date of: 12/17/24 Subjective Subjective Interval history: 64-year-old male with a past medical history significant for essential hypertension, HFpEF, CKD , [id number] diabetes mellitus type 2, hyperlipidemia, GERD and history of opioid addiction on methadone following antibiotic clinic in [place] since 2005 presenting today with a chief complaint of progressively worsening shortness of breath. Pt is seen and examined no complaints no shortness of breath Exam Vital Signs Temp Pulse Resp BP Pulse Ox O2 Del Method O2 Flow Rate 97.3 F 107 H 16 151/80 H 96 Room Air 3 12/17/24 12:00 12/17/24 14:28 12/17/24 14:28 12/17/24 13:16 12/17/24 12:00 12/17/24 12:00 12/14/24 14:55 Narrative Exam Heart s1,s2 chest CTA ivanna trace edema Objective Labs 12/18/24 05:50 12/18/24 05:50 Labs: Laboratory Results - last 24 hr 12/17/24 07:40 WBC 9.3 RBC 3.09 L Hgb 9.0 L Hct 28.1 L MCV 91 MCH 29.1 MCHC 32.0 RDW Std Deviation 47.9 H Plt Count 133 L Neut % (Auto) 59 Lymph % (Auto) 28 Hamlin % (Auto) 9 Eos % (Auto) 3 Baso % (Auto) 1 Neut # (Auto) 5.5 Lymph # (Auto) 2.6 Hamlin # (Auto) 0.8 Eos # (Auto) 0.3 Baso # (Auto) 0.1 Immature Gran # (Auto) 0.06 H Absolute Nucleated RBC 0.00 Immature Gran % 1 H Nucleated RBC % 0 Sodium 138 Potassium 3.0 L Chloride 102 Carbon Dioxide 26.1 Anion Gap 10 BUN 44 H Creatinine 2.4 H D Estim Creat Clear Calc 42.1 L eGFR 30 L BUN/Creatinine Ratio 18 Glucose 109 H Calculated Osmolality 287 Calcium 8.5 Corrected Calcium 8.6 Phosphorus 2.3 L Magnesium 1.9 Total Bilirubin 0.4 AST 27 ALT 17 Alkaline Phosphatase 65 Total Protein 7.5 Albumin 3.9 Globulin 3.6 H Albumin/Globulin Ratio 1.1 L ABG Interpretation ABG results: 12/12/24 03:36 ABG pH 7.30 L ABG pCO2 45 ABG pO2 74 L ABG HCO3 22 ABG O2 Saturation 96 ABG Base Excess -5 L Assessment & Plan Assessment and plan (1) ESRD (end stage renal disease): Status: Acute Assessment and plan: Having HD today tolerating HD waitinf for out pt dialysis. (2) Metabolic acidosis: Status: Acute (3) Acute respiratory failure with hypoxia: Status: Acute
[2024-12-17] MEDS: amLODIPine BESYLATE 5 MG TABLET 10 MG PO (21:17)
[2024-12-18] VITALS (10 sets, daily range): BP systolic 139–150; BP diastolic 70–80; PULSE 57–69; RESP 16–98; TEMP 36.8–37.3; O2SAT 95–99
[2024-12-18] MEDS: hydrALAZINE HCL 25 MG TABLET 50 MG PO ×2 (05:20→13:48)
[2024-12-18 06:12] LABS: Basophils # (Auto) 0.1 Thou/mm3 (0.0-0.2); Basophils % (Auto) 1 % (0-2.5); Eosinophils # (Auto) 0.3 Thou/mm3 (0.0-0.5); Eosinophils % (Auto) 4 % (0-10); Hematocrit 27.2 % (41.0-53.0); Hemoglobin 8.9 g/dL (13.5-16.0); Immature Granulocytes % (Auto) 1 % (0-0); Immature Granulocytes Auto 0.05 Thou/mm3 (0.00-0.00); Lymphocytes # (Auto) 3.1 Thou/mm3 (1.0-4.8); Lymphocytes % (Auto) 35 % (10-50); Mean Corpuscular HGB Conc 32.7 g/dl (31.0-37.0); Mean Corpuscular Hemoglobin 29.6 pg (25.0-35.0); Mean Corpuscular Volume 90 fL (80-100); Monocytes # (Auto) 0.9 Thou/mm3 (0.0-0.8); Monocytes % (Auto) 11 % (0-12); Neutrophils # (Auto) 4.3 Thou/mm3 (1.8-7.7); Neutrophils % (Auto) 50 % (37-80); Nucleated Red Blood Cell % 0 /100 WBC (0); Platelet Count 111 Thou/mm3 (140-440); RDW Standard Deviation 46.9 fL (35.1-43.9); Red Blood Count 3.01 Miln/mm3 (4.50-5.90); White Blood Count 8.8 Thou/mm3 (3.8-10.6)
[2024-12-18 06:31] LABS: Alanine Aminotransferase 19 U/L (10-49); Albumin, Serum 3.6 gm/dL (3.4-4.8); Albumin/Globulin Ratio 1.1 (1.2-2.2); Alkaline Phosphatase 60 U/L (46-116); Anion Gap 10 (7-16); Aspartate Amino Transferase 35 U/L (0-34); BUN/Creatinine Ratio 13 Ratio (12-20); Bilirubin,Total 0.4 mg/dL (0.3-1.2); Blood Urea Nitrogen 30 mg/dL (9-23); Calcium 8.4 mg/dL (8.3-10.6); Calcium (Corrected) 8.7 mg/dL (8.5-10.1); Carbon Dioxide 26.6 mMol/L (20.0-31.0); Chloride 100 mMol/L (98-107); Creatinine (Component) 2.4 mg/dL (0.6-1.3); Estimated Creatinine Clearance 41.5 mL/min (>60); Globulin 3.4 gm/dL (2.3-3.5); Glucose 82 mg/dL (74-106); Magnesium 1.9 mg/dL (1.6-2.6); Osmolality,Calculated 279 (275-295); Phosphorous 2.6 mg/dL (2.4-5.1); Potassium 2.9 mMol/L (3.4-5.1); Sodium 137 mMol/L (136-145); eGFR 30 See Note
[2024-12-18] MEDS: METHADONE HCL 10 MG TABLET 90 MG PO (08:38)
[2024-12-18] MEDS: SENNA TABLET 1 TAB PO (08:40)
[2024-12-18] MEDS: PANTOPRAZOLE 40 MG TABLET PO (08:40)
[2024-12-18] MEDS: POTASSIUM CHLORIDE 20 mEq TABCR PO ×2 (08:40→09:27)
[2024-12-18] MEDS: METOPROLOL SUCCINATE XL 25 MG TABCR 100 MG PO (08:40)
[2024-12-18] MEDS: CALCIUM CARBONATE 600 MG TABLET PO (08:40)
[2024-12-18] MEDS: SEVELAMER CARBONATE 800 MG TABLET 1600 MG PO (08:40)
[2024-12-18] MEDS: HEPARIN SOD INJ 5000 UNIT/ML VIAL SC (08:41)
--- NOTE | 2024-12-18 11:20 | CHAP ---
Patient was visited by the Spiritual Care Volunteer who prayed for them. (Volunteer was in the hospital from 10:10-11:20).
[2024-12-18 12:04] LABS: Hepatitis B Core Antibody IgM Non Reactive (Non React); Hepatitis B Surface Ab Reactive (Immune) (Immune)
--- NOTE | 2024-12-18 12:04 | PC.SS ---
Addendum entered by Ros Morris 12/18/24 12:46: SS confirmed with [facility]. This is the only available time for patient at 6:15a.m. They will review at a later time and change the time once one becomes available. Patient is now accepted and will start on the Nov. Original Note: Follow up note: SS spoke to [facility] and they have accepted patient for their facility. They will start patient at [facility]. Patient agreeable. Working out time slot. Once approved patient can leave later today. Nursing states he will need gurney transport. [facility] allowed us to d/c patient with the hep B Core Antibody and Hep B surface Antibody pending. Once up we need to submit online to [facility] portal.
--- NOTE | 2024-12-18 14:32 | PD.RESDS ---
Planned Discharge Date 12/18/24 DS: Providers Provider Date of admission: 12/12/24 02:52 Primary care physician: Scout Helton MD Admitting Provider: Antonino Giles MD Attending Provider on Admission: Kervin Crews MD Consults: 12/12/24 02:57 Consult to Nephrology Routine Comment: MIAN on CKD Consulting Provider: Joseph Hutchinson 12/12/24 08:26 Referral Infection Control Routine Comment: Reason for Infection Control Referral: Readmitted within 30 days Health Equity Referral - Nutrition Routine Comment: Positive screening for nutrition needs. Attending Provider on DC: Antonino Giles MD Discharging Provider: Antonino Giles MD DS: Diagnosis Problem List Completed Was Problem List Reviewed/Reconciled?: Yes Hospital Course Hospital Course Hospital course: 64-year-old wheelchair bound male with past medical history of HFpEF (EF 55 to 60% 10/2024), essential hypertension, Hx of heroin use and on methadone, hyperlipidemia, IDDM, COVID-pneumonia in 2019 with residual lower body weakness and dyspepsia was admitted to the hospital on 12/12/2024 due to acute hypoxic respiratory failure likely in the setting of fluid overload status in the setting of CKD stage V requiring hemodialysis, acute decompensated heart failure exacerbation, and community-acquired pneumonia versus hospital-acquired pneumonia. In the ED patient came in with complaints of shortness of breath. Initially was afebrile and mildly hypertensive. Initial labs were relevant for anemia (Hgb 7.9), hyperkalemia (5.7), MIAN on CKD (elevated creatinine of 4 BUN 85), hypomagnesemia (2.8), and elevated BNP (781). Initial imaging included chest x-ray which showed bilateral pneumonia and CHF pattern and EKG which showed sinus rhythms. For patient's hyperkalemia he was treated with insulin initially with amps of D50, but these did not lower the potassium to normal range therefore Kayexalate was given x 1 and he was started on Veltassa scheduled and eventually his potassium did go back to normal range. Throughout the hospital stay patient was treated with IV diuretics initially as he seemed to be fluid overloaded which could have been causing his kidney function to worsen. Patient did not diures at goal and kidney function continue to worsen to creatinine at 4.6 and BUN of 93 therefore spoke with air transport professionals was consulted given the patient would likely need hemodialysis. Nephrology stated that patient would need hemodialysis therefore a tunneled cath was inserted by interventional radiology. Patient was also ordered hepatitis panel as he was going be started on hemodialysis and hep C antibody was reactive, to which patient stated that he might had some knowledge about this as in the past he was on IV drug use and sometimes shared needles and may be of physician had told him in the past. Patient was also treated for antibiotics for his pneumonia. Patient was started on hemodialysis during his hospital stay until hemodialysis chair was available. He tolerated hemodialysis well with no feelings of dizziness or weakness. At the time of discharge patient was stable enough to be discharged home. 12/18/2024: Patient discharge was delayed due to availability of hemodialysis today. Patient stable today. No other complaints. Discharge plan: ? Please follow-up with primary care physician in 1 after discharge, and get Hepatitis C viral load ? Please follow-up with air transport professionals in 1 to 2 weeks within discharge - Continue with Regularly scheduled hemodialysis - Started on Sevelamer carbonate 800mg 3times daily with meals ? You have been started on calcium carbonate 600 Mg daily ? Changed your metoprolol to tartrate 100 Mg twice daily to metoprolol tartrate 50 Mg twice daily, please take half of your previous 100mg tablets ? Continue with all other medicines as previously prescribed ? Please come back to the ER if symptoms persist or worsen Problem list: #MIAN on CKD stage IV, requiring HD #Acute hypoxic respiratory failure likely secondary to #Acute on chronic diastolic congestive heart failure exacerbation (EF 55 to 60% on 10/2024) #Dyspnea #Community-acquired pneumonia #Electrolyte imbalance #Hyperkalemia #Hyperchloremia, resolved #Hypocalcemia #Hypermagnesemia. #Hyperphosphatemia #NAGMA #Hx of IDDM #Hx of hypertension #Hx of hyperlipidemia #Hx of heroin use currently on methadone Case disclosed with Attending Dr. Giles and My senior Dr. Edwards PGY2. Shashi Perez PGY1 Senior Resident Attestation: I discussed with and supervised the event marketing intern physician involved in the care of this patient. I personally saw and examined the patient and discussed the assessment and plan with the entire medicine team, including my attending. I agree with the discharge plan as documented above. Brandon Edwards MD PGY2 Internal Medicine Status at Discharge Overall status at discharge: patient is progressing back to baseline Time Spent with Patient Time attestation: Total time spent providing and/or coordinating discharge services:> 35 min Exam Vital Signs Temp Pulse Resp BP Pulse Ox O2 Del Method O2 Flow Rate 98.3 F 64 17 143/80 H 97 Room Air 3 12/18/24 11:44 12/18/24 13:48 12/18/24 11:44 12/18/24 13:48 12/18/24 11:44 12/18/24 11:44 12/14/24 14:55 Narrative Exam General: A/O x3, no acute distress Eyes: PERRL, EOMI. Anicteric, vision grossly intact. Ears: No ear pain, no ear discharge, Hearing grossly intact. Nose: No nasal discharge. Mouth/Throat: Moist mucous membranes, no redness, no lesions. Neck: Neck supple, non-tender, no cervical lymphadenopathy. Lungs: Clear LINO upper lobes and mild crackles in lower lobes, No accessory muscle use. Cardio: Normal S1/S2, regular rhythm, no murmurs, no JVD Abdomen: Soft, non-tender, no palpable masses, peristalsis present, no guarding or rebound. Extremities: Symmetrical, no significant deformities, 1+ edema upto lower back/abdomen, improving , non-tender, peripheral pulses presents. Skin: No rashes, no lesions, warm to touch. Tunneled cath in R upper chest. Neuro: No focal neurological deficits. motor and sensory intact Discharge Plan Plan Patient Disposition: HOME (Self Care) Care Plan Goals: ? Please follow-up with primary care physician in 1 after discharge, and get Hepatitis C viral load ? Please follow-up with air transport professionals in 1 to 2 weeks within discharge - Continue with Regularly scheduled hemodialysis - Started on Sevelamer carbonate 800mg 3times daily with meals ? You have been started on calcium carbonate 600 Mg daily ? Changed your metoprolol to tartrate 100 Mg twice daily to metoprolol tartrate 50 Mg twice daily, please take half of your previous 100mg tablets ? Continue with all other medicines as previously prescribed ? Please come back to the ER if symptoms persist or worsen Prescriptions/Referrals Prescriptions/Med Rec: New sevelamer carbonate 800 mg Tablet 800 mg PO TIDWM 30 Days Qty: 90 2RF calcium carbonate 600 mg calcium (1,500 mg) Tablet 600 mg PO QDAY 30 Days Qty: 30 0RF Continued gemfibrozil 600 mg tablet 600 mg BID Hold Instructions: Resume on 11/23/24. HOLD until follow up with PCP Already on statin Patient Comments: take 1 tablet by mouth twice a day hydralazine 100 mg tablet 100 mg PO TID Patient Comments: take 1 tablet by mouth three times a day with food esomeprazole magnesium 40 mg capsule,delayed release(DR/EC) 40 mg QDAY Patient Comments: take 1 capsule by mouth once daily (DME) [employer] Evangelista 3 Sensor Device See Rx Instructions .Route Qty: 1 0RF Rx Instructions: As directed amlodipine 10 mg tablet 10 mg PO HS 30 Days Qty: 30 0RF atorvastatin 80 mg tablet 80 mg PO HS 30 Days Qty: 30 0RF furosemide 40 mg tablet 40 mg PO EVERYOTHERDAY Patient Comments: take 1 tablet by mouth every other day Changed metoprolol tartrate 100 mg tablet 50 mg PO BID Qty: 30 0RF Patient Comments: take 1 tablet by mouth twice a day with food Referrals: Scout Helton MD [Primary Care Provider] - Patient/Caregiver Discharge Instructions Discharge Activity: activity as tolerated Other Discharge Activity Instructions:: Out patient dialysis: [facility], [address] #[phone] Schedule: //Sat at 6:15A.M. Start date: 12/22/24 Education Materials: Hemodialysis, ED Chronic Kidney Disease (CKD) Print Language: Kazakh Stand Alone Forms: Lois Award Info., Patient Portal Info Letter Discharge Order Discharge Orders: Discharge (Routine); Ordered 12/18/24 Ordered By: Shashi Perez Quality Discharge Quality Measures VTE prophylaxis Attestestation Attestation Face to face evaluation was performed by me. I have personally seen and examined the patient. I discussed the assessment and plan with the entire medicine team. I reviewed available medical records, imaging studies, laboratory results. I agree with the above subjective data, objective findings, assessment and plan except as corrected by me or noted below MIAN on CKD now stage 5 requiring HD SOB due to above Hep c positivity clinically improved. has HD chair time. tunneled catheter placed, plan for HD 2 days a week, continue current meds on Dc as reconciled, pcp fu after dc recommend to be referred to [facility] repairer, get hep C pcr quantitative and treatment for hep C !
== END 2024-12-18 15:33 | disposition home or self-care (01) | DRG 194 ==
LOC: SERX 12-12 02:17 → SERHOLD 12-12 03:25 → S2NX 12-12 07:59 → S3EX 12-17 23:05
PROVIDERS: Internal Medicine; Student in an Organized Health Care Education/Training Program; Admitting Provider Internal Medicine; Emergency Provider Emergency Medicine; PCP Orthopaedic Surgery; Visit Provider Internal Medicine
DX: I13.2 Hypertensive heart and chronic kidney disease with heart failure and with stage 5 chronic kidney disease, or end stage renal disease (principal); N18.4 Chronic kidney disease, stage 4 (severe); I50.33 Acute on chronic diastolic (congestive) heart failure; E78.5 Hyperlipidemia, unspecified; K21.9 Gastro-esophageal reflux disease without esophagitis; Z86.16 Personal history of COVID-19; N17.9 Acute kidney failure, unspecified; E11.22 Type 2 diabetes mellitus with diabetic chronic kidney disease; E87.5 Hyperkalemia; E83.51 Hypocalcemia; E87.20 Acidosis, unspecified; Z99.3 Dependence on wheelchair; J18.9 Pneumonia, unspecified organism; J96.01 Acute respiratory failure with hypoxia; E87.8 Other disorders of electrolyte and fluid balance, not elsewhere classified; E83.41 Hypermagnesemia; E83.39 Other disorders of phosphorus metabolism
CPT/HCPCS: 36415; 36600; 71045; 76937; 77001; 80048; 80053; 80069; 80074; 80307; 82803; 83605; 83735; 83880; 84100; 84145; 84484; 85025; 85610; 85730; 86580; 86705; 86706; 87040; 87081; 87400; 87811; 93005; 94640; 96365; 96367; 96375; 99285; C1750; C1894; J0613; J0696; J1642; J1643; J1815; J1940; J3490; J7040; J7050; J7512; Q5105; A9270